=== PATIENT | female | born 1935 | race Caucasian/White ===

== ENCOUNTER 2016-07-22 08:58 | Outpatient (CLI) | payer MEDICARE, OTHER | END 2016-07-22 08:59 | disposition home or self-care (01) | DX: R10.11 Right upper quadrant pain (principal); R14.0 Abdominal distension (gaseous) ==

== ENCOUNTER 2017-01-06 10:00 | Outpatient (CLI) | payer MEDICARE, OTHER | END 2017-01-06 10:01 | disposition home or self-care (01) | LOC: LAB.WCP 10:00 | PROVIDERS: ATTEND Family Medicine | DX: N39.0 Urinary tract infection, site not specified (principal) | CPT/HCPCS: 87077; 87086 ==

== ENCOUNTER 2017-01-07 13:32 | Outpatient (CLI) | payer MEDICARE, OTHER ==
[2017-01-08 18:06] LABS: TEST RESULT REPORT (())
== END 2017-01-07 13:33 | disposition home or self-care (01) ==
LOC: LAB.WCP 13:32
PROVIDERS: ATTEND Family Medicine
DX: R19.7 Diarrhea, unspecified (principal)
CPT/HCPCS: 81599; 87045; 87046; 87177; 87209; 87329; 87493

== ENCOUNTER 2017-01-25 08:00 | Outpatient (CLI) | payer MEDICARE, OTHER | END 2017-01-25 08:01 | disposition home or self-care (01) | LOC: LAB.WCP 08:00 | PROVIDERS: ATTEND Family Medicine | DX: N39.0 Urinary tract infection, site not specified (principal) | CPT/HCPCS: 87086 ==

== ENCOUNTER 2017-04-28 08:39 | Emergency (ER) | payer MEDICARE, OTHER ==
--- NOTE | 2017-04-28 08:58 | ED Physician Documentation ---
PD HPI ABD PAIN - Stated complaint Stated Complaint: N/D ABD PX - History obtained from History obtained from: Patient - History of Present Illness Pain level max: 0 Review of Systems Constitutional: denies: Fever, Fatigue, Weight Loss Eyes: denies: Loss of vision Cardiac: denies: Chest pain / pressure, Palpitations, Pedal edema Respiratory: denies: Dyspnea, Cough, Wheezing GI: reports: Abdominal Swelling, Diarrhea. denies: Abdominal Pain, Nausea, Vomiting, Constipation, Bloody / black stool : reports: Incontinent. 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 - Present Medications Home Medications: Ambulatory Orders Medication Instructions Recorded Confirmed Gabapentin 600 mg QID 11/13/13 04/28/17 Levothyroxine [Synthroid] 75 mcg PO DAILY 11/13/13 04/28/17 Lovastatin 20 mg DAILY 11/13/13 04/28/17 Nabumetone 750 mg TID 11/13/13 04/28/17 Calcium Carbonate [Calcium] 500 mg PO DAILY 03/11/15 03/11/15 Loperamide [Imodium] 2 mg PO QID PRN 03/11/15 04/28/17 Multivitamin [Multi-Vitamin Daily] 1 each PO DAILY 03/11/15 04/28/17 Vit D3/Folic Acid/B2/B6/B12 1 tab PO DAILY 03/11/15 04/28/17 [Folgard Tablet] Acetaminophen [Tylenol] 650 mg PO 10/29/15 Famotidine [Pepcid AC] PO DAILY 10/29/15 Warfarin [Coumadin] 7.5 mg PO 1400 04/28/17 04/28/17 - Allergies Allergies/Adverse Reactions: Allergies Allergy/AdvReac Type Severity Reaction Status Date / Time clarithromycin [From Biaxin] Allergy Dizziness Verified 11/04/13 12:57 Sulfa (Sulfonamide Allergy Hives Verified 11/04/13 12:57 Antibiotics) - Social History Does the pt smoke?: No Smoking Status: Never smoker Does the pt drink ETOH?: Yes - Immunizations Immunizations are current?: Yes PD ED PE NORMAL - Vitals Vital signs reviewed: Yes - General General: Alert and oriented X 3 - HEENT HEENT: Atraumatic, Moist mucous membranes - Cardiac Cardiac: RRR, No murmur - Respiratory Respiratory: No respiratory distress, Clear bilaterally - Abdomen Abdomen: Normal bowel sounds, Soft, Non tender, Non distended - Rectal Rectal: Other (Hemeoccult neg 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) - Back Back: No CVA TTP - Derm Derm: Normal color, No rash - Extremities Extremities: No deformity, No edema - Neuro Neuro: Alert and oriented X 3 Eye Opening: Spontaneous Motor: Obeys Commands Verbal: Oriented GCS Score: 15 - Psych Psych: Normal mood Results - Vitals Vitals: Vital Signs - 24 hr 04/28/17 08:47 Temperature 36.4 C L Heart Rate 82 Respiratory 20 Rate Blood Pressure 182/96 H O2 Saturation 100 Oxygen O2 Source Room air - Labs Labs: Laboratory Tests 04/28/17 04/28/17 04/28/17 09:08 09:08 09:08 WBC 7.0 RBC 3.58 L Hgb 10.7 L Hct 30.9 L MCV 86.3 MCH 29.8 MCHC 34.6 RDW 14.4 Plt Count 265 MPV 8.6 Neut # 4.7 Lymph # 1.4 L [place] # 0.6 Eos # 0.2 Baso # 0.1 Absolute Nucleated RBC 0.00 Nucleated RBC % 0.0 PT 27.6 H INR 2.5 H APTT 36.3 H Sodium 131 L Potassium 4.6 Chloride 94 L Carbon Dioxide 24 Anion Gap 13.0 BUN 32 H Creatinine 1.5 H Estimated GFR (MDRD) 33 L Glucose 115 H Calcium 9.8 Total Bilirubin 1.1 H AST 35 ALT 27 Alkaline Phosphatase 62 Total Protein 7.2 Albumin 3.7 Globulin 3.5 Albumin/Globulin Ratio 1.1 Lipase 29 Urine Color Urine Clarity Urine pH Ur Specific [place] Urine Protein Urine Glucose (UA) Urine Ketones Urine Occult Blood Urine Nitrite Urine Bilirubin Urine Urobilinogen Ur Leukocyte Esterase Ur Microscopic Review Urine Culture Comments 04/28/17 09:08 WBC RBC Hgb Hct MCV MCH MCHC RDW Plt Count MPV Neut # Lymph # [place] # Eos # Baso # Absolute Nucleated RBC Nucleated RBC % PT INR APTT Sodium Potassium Chloride Carbon Dioxide Anion Gap BUN Creatinine Estimated GFR (MDRD) Glucose Calcium Total Bilirubin AST ALT Alkaline Phosphatase Total Protein Albumin Globulin Albumin/Globulin Ratio Lipase Urine Color YELLOW Urine Clarity CLEAR Urine pH 7.0 Ur Specific [place] 1.010 Urine Protein NEGATIVE Urine Glucose (UA) NEGATIVE Urine Ketones NEGATIVE Urine Occult Blood NEGATIVE Urine Nitrite NEGATIVE Urine Bilirubin NEGATIVE Urine Urobilinogen 0.2 (NORMAL) Ur Leukocyte Esterase NEGATIVE Ur Microscopic Review NOT INDICATED Urine Culture Comments NOT INDICATED PD MEDICAL DECISION MAKING - ED course Complexity details: reviewed old records, d/w patient, d/w tax credit leasing consultant ED course: Pt H/H 04/11. elevated INR but she is on coumadin. BUN and Creat stable from yesterday. Heme occult neg. Discussed case with Dr Carlson (her GI provider) and will hold on PPI for now. Pt given return instructions. Departure - Departure Disposition: 01 Home, Self Care Clinical Impression: Elevated serum creatinine Condition: Good Follow-Up: Dolly Cruz MD [Primary Care Provider] - Within 1 week Comments: Call Dr Carlson also to discuss your lab results.
[2017-04-28 09:31] LABS: BASOPHILS # (AUTO) 0.1 10^3/uL (0.0-0.1); EOSINOPHILS # (AUTO) 0.2 10^3/uL (0.0-0.7); HCT - HEMATOCRIT 30.9 % (37.0-47.0); HGB - HEMOGLOBIN 10.7 g/dL (12.0-16.0); LYMPHOCYTES # (AUTO) 1.4 10^3/uL (1.5-3.5); LYMPHOCYTES % (AUTO) 20.4 %; MEAN CORPUSCULAR HEMOGLOBIN 29.8 pg (27.0-31.0); MEAN CORPUSCULAR HGB CONC 34.6 g/dL (32.0-36.0); MEAN CORPUSCULAR VOLUME 86.3 fL (81.0-99.0); MEAN PLATELET VOLUME 8.6 fL (7.9-10.8); MONOCYTES # (AUTO) 0.6 10^3/uL (0.0-1.0); MONOCYTES % (AUTO) 8.4 %; NEUTROPHILS # (AUTO) 4.7 10^3/uL (1.5-6.6); NEUTROPHILS % (AUTO) 67.2 %; RED BLOOD COUNT 3.58 10^6/uL (4.20-5.40); RED CELL DISTRIBUTION WIDTH 14.4 % (12.0-15.0)
[2017-04-28 09:34] LABS: INR 2.5 (0.8-1.2); PT - PROTHROMBIN TIME 27.6 secs (9.9-12.6)
[2017-04-28 09:42] LABS: PARTIAL THROMBOPLASTIN TIME 36.3 secs (24.9-33.3)
[2017-04-28 09:43] LABS: ALBUMIN/GLOBULIN RATIO 1.1 (1.0-2.2); BILIRUBIN,TOTAL 1.1 mg/dL (0.2-1.0); CALCIUM 9.8 mg/dL (8.5-10.3); CREATININE 1.5 mg/dL (0.4-1.0); POTASSIUM 4.6 mmol/L (3.5-5.0); TOTAL PROTEIN 7.2 g/dL (6.7-8.2)
[2017-04-28 09:46] LABS: BILIRUBIN,URINE NEGATIVE (NEGATIVE)
[2017-04-28 09:47] LABS: UA CHARGE (STRIP ONLY) YES; UR CULTURE IF IND NOT INDICATED
[2017-04-28 10:27] VITALS: BP 173/86
== END 2017-04-28 10:27 | disposition home or self-care (01) ==
LOC: ED 08:39
DX: R74.8 Abnormal levels of other serum enzymes (principal); Z79.01 Long term (current) use of anticoagulants; E03.9 Hypothyroidism, unspecified
CPT/HCPCS: 36415; 80053; 81001; 81003; 83690; 85025; 85610; 85730; 87086; 99283

== ENCOUNTER 2017-05-03 16:00 | Outpatient (CLI) | payer MEDICARE, OTHER ==
[2017-05-03 19:13] LABS: CALCIUM 9.3 mg/dL (8.5-10.3); CREATININE 1.4 mg/dL (0.4-1.0); POTASSIUM 4.5 mmol/L (3.5-5.0)
== END 2017-05-03 16:01 | disposition home or self-care (01) ==
LOC: LAB.WCP 16:00
PROVIDERS: ATTEND Family Medicine
DX: N28.9 Disorder of kidney and ureter, unspecified (principal)
CPT/HCPCS: 36415; 80048

== ENCOUNTER 2017-06-08 08:20 | Outpatient (CLI) | payer MEDICARE, OTHER ==
--- NOTE | 2017-06-09 16:14 | Ultrasound Report ---
DATE OF SERVICE: 06/08/2017 RENAL ULTRASOUND: 06/08/2017 CLINICAL INDICATION: Kidney disorder. TECHNIQUE: Real-time scanning was performed with industrial relations representative static images obtained. FINDINGS: The right kidney measures 9.5 x 3.5 x 3.2 cm, and the left kidney measures 9.1 x 4.4 x 3.7 cm. A small left extrarenal pelvis is present. No hydronephrosis, solid renal lesion, or perinephric colle ction is appreciated. Prevoid, the bladder measures 8.4 x 8.0 x 6.6 cm, yielding a pre-void volume of 236 mL Bilateral uret eral jets are visualized. Postvoid residual is 7 mL No focal bladder wall lesion is appreciated. IMPRESSION: No hydronephrosis or focal renal lesion. TD: 06/08/2017 11:22
== END 2017-06-08 08:21 | disposition home or self-care (01) ==
LOC: DI 08:20
PROVIDERS: ATTEND Family Medicine
DX: N28.9 Disorder of kidney and ureter, unspecified (principal)
CPT/HCPCS: 76770

== ENCOUNTER 2017-07-23 07:06 | Outpatient (CLI) | payer MEDICARE, OTHER | END 2017-07-23 07:07 | disposition critical access hospital (66) | LOC: EMS 07:06 | PROVIDERS: ATTEND Surgery | DX: M79.605 Pain in left leg (principal); R42 Dizziness and giddiness; Z79.01 Long term (current) use of anticoagulants | CPT/HCPCS: A0425; A0429 ==

== ENCOUNTER 2017-07-23 07:20 | Emergency (ER) | payer MEDICARE, OTHER ==
--- NOTE | 2017-07-23 07:20 | ED Physician Documentation ---
PD HPI LOWER EXT INJURY - Stated complaint Stated Complaint: L HIP PX - History obtained from History obtained from: Patient - History of Present Illness PD HPI LOW EXT INJURY LOCATION: Left, Upper leg, Thigh Type of injury: No: Fall, Twist Where injury occurred: Home Timing - onset: How many days ago (3 days of progressive pain left anterior thigh, without injury. Worse with movement and walking. Unable to walk this morning due to the pain of it.) Timing - duration: Days (3) Timing - details: Gradual onset, Still present Improved by: No: Rest, Meds (tylenol did not help) Worsened by: Moving, Palpating Associated symptoms: Tingling (both hands chronically post neck surgery). No: Weakness, Numbness Contributing factors: Anticoagulated Similar symptoms before: Has not had sx before Recently seen: Clinic (has hade right abd pain/lump being evaluated with imaging (U/S and ? MRI) and also had EGD/Colonoscopy 2 weeks ago, for which she was off coumadin and on Lovenox prior to it.) Review of Systems Constitutional: reports: Myalgias (left thigh pain for 3 days). denies: Fever, Chills Nose: denies: Rhinorrhea / runny nose, Congestion Throat: denies: Sore throat Cardiac: denies: Chest pain / pressure, Palpitations Respiratory: denies: Dyspnea, Cough GI: denies: Nausea, Vomiting, Diarrhea : denies: Dysuria, Frequency Skin: denies: Rash, Lesions Musculoskeletal: reports: Neck pain (chronic), Back pain (minimal chronically) Neurologic: reports: Numbness (both hands chronically, no new numbness particularly of the leg). denies: Focal weakness Psychiatric: denies: Depressed Endocrine: denies: Weight loss Immunocompromised: denies: Immunocompromised PD PAST MEDICAL HISTORY - Past Medical History Cardiovascular: Deep vein thrombosis (many years ago on OCPs), Pulmonary embolism (2016 after back surgery, at [facility]) Respiratory: None Neuro: None Endocrine/Autoimmune: None Musculoskeletal: Osteoarthritis - Past Surgical History General: Colonoscopy (2 weeks ago), EGD (2 weeks ago) - Present Medications Home Medications: Ambulatory Orders Medication Instructions Recorded Confirmed Gabapentin 600 mg QID 11/13/13 04/28/17 Levothyroxine [Synthroid] 50 mcg PO DAILY 11/13/13 04/28/17 Lovastatin 20 mg DAILY 11/13/13 04/28/17 Nabumetone 750 mg BID 11/13/13 04/28/17 Calcium Carbonate [Calcium] 500 mg PO DAILY 03/11/15 03/11/15 Loperamide [Imodium] 2 mg PO QID PRN 03/11/15 04/28/17 Multivitamin [Multi-Vitamin Daily] 1 each PO DAILY 03/11/15 04/28/17 Vit D3/Folic Acid/B2/B6/B12 1 tab PO DAILY 03/11/15 04/28/17 [Folgard Tablet] Acetaminophen [Tylenol] 650 mg PO 10/29/15 Warfarin [Coumadin] 7.5 mg PO 1400 04/28/17 04/28/17 Dexamethasone [Decadron] 4 mg PO DAILY #5 tablet 07/23/17 Losartan Potassium 0 07/23/17 Oxycodone HCl/Acetaminophen 1 each PO Q6H PRN #20 tablet 07/23/17 [Percocet 5-325 mg Tablet] - Allergies Allergies/Adverse Reactions: Allergies Allergy/AdvReac Type Severity Reaction Status Date / Time clarithromycin [From Biaxin] Allergy Dizziness Verified 11/04/13 12:57 Sulfa (Sulfonamide Allergy Hives Verified 11/04/13 12:57 Antibiotics) - Living Situation Living Situation: reports: With family Living Arrangement: reports: At home - Social History Does the pt smoke?: No - Family History Family history: reports: Non contributory PD ED PE NORMAL - Vitals Vital signs reviewed: Yes - General General: Alert and oriented X 3, Well developed/nourished - HEENT HEENT: Pharynx benign - Neck Neck: Supple, no meningeal sign, No adenopathy - Cardiac Cardiac: RRR, No murmur - Respiratory Respiratory: No respiratory distress, Clear bilaterally - Abdomen Abdomen: Normal bowel sounds, Soft, Non tender, Non distended - Female Female : Deferred - Rectal Rectal: Deferred - Back Back: No CVA TTP, No spinal TTP (old scars noted without redness, sores, rash. Not tender in the back. ) - Derm Derm: Normal color, Warm and dry - Extremities Extremities: Other (left anterior thigh with tenderness to palpation from crural area to knee. No rash nor sores. Right thigh not tender. Calves both sides without tenderness. ) - Neuro Neuro: Alert and oriented X 3, No motor deficit, Normal speech Results - Vitals Vitals: Vital Signs - 24 hr 07/23/17 07/23/17 07:25 10:05 Temperature 35.8 C L Heart Rate 99 66 Respiratory 18 17 Rate Blood Pressure 165/76 H 142/73 H O2 Saturation 96 96 Oxygen O2 Source Room air - Labs Labs: Laboratory Tests 07/23/17 07/23/17 07/23/17 07:46 07:46 07:46 WBC 11.8 H RBC 3.56 L Hgb 10.3 L Hct 30.2 L MCV 85.0 MCH 28.9 MCHC 34.0 RDW 14.3 Plt Count 321 MPV 8.1 Neut # 10.3 H Lymph # 0.9 L [place] # 0.6 Eos # 0.1 Baso # 0.0 Absolute Nucleated RBC 0.01 Nucleated RBC % 0.1 ESR 32 H PT INR Sodium 131 L Potassium 4.6 Chloride 94 L Carbon Dioxide 24 Anion Gap 13.0 BUN 31 H Creatinine 1.2 H Estimated GFR (MDRD) 43 L Glucose 121 H Calcium 9.5 Magnesium 2.0 Total Bilirubin 0.7 AST 23 ALT 20 Alkaline Phosphatase 75 Total Creatine Kinase 120 Total Protein 7.0 Albumin 3.8 Globulin 3.2 Albumin/Globulin Ratio 1.2 Lipase 17 L 07/23/17 07:46 WBC RBC Hgb Hct MCV MCH MCHC RDW Plt Count MPV Neut # Lymph # [place] # Eos # Baso # Absolute Nucleated RBC Nucleated RBC % ESR PT 25.3 H INR 2.3 H Sodium Potassium Chloride Carbon Dioxide Anion Gap BUN Creatinine Estimated GFR (MDRD) Glucose Calcium Magnesium Total Bilirubin AST ALT Alkaline Phosphatase Total Creatine Kinase Total Protein Albumin Globulin Albumin/Globulin Ratio Lipase - Rads (name of study) duplex left leg Radiology: Prelim report reviewed (no DVT) hip xray Radiology: Prelim report reviewed (no fractures; some arthritis noted) PD MEDICAL DECISION MAKING - ED course Complexity details: considered differential (consider DVT of thigh and can get U /S. Consider nerve pain but not having pain in back and is tender in muscles of thigh. No rash but could be early shingles. She is on statin, so consider myositis. Check labs and xray hip as well. ), d/w patient Departure - Departure Disposition: 01 Home, Self Care Clinical Impression: Left thigh pain Condition: Stable Record reviewed to determine appropriate education?: Yes Instructions: ED Muscle Pain Leg Cramps Follow-Up: Dolly Cruz MD [Primary Care Provider] - Prescriptions: Dexamethasone [Decadron] 4 mg PO DAILY #5 tablet Oxycodone HCl/Acetaminophen [Percocet 5-325 mg Tablet] 1 each PO Q6H PRN #20 tablet PRN Reason: Pain Comments: Your blood tests show some elevation of inflammation marker called the sed rate. There is no signs of muscle breakdown based on the blood test. Your hip x-ray appears normal except for some arthritis. Given the tenderness in the muscle, I am wondering if this is an inflammation caused by your cholesterol medication. Stop the statin medication from the next month. Use Decadron anti- inflammatory daily for the next 5 days. Add Tylenol every 4 hours if needed for pain. If this is not sufficient, use Percocet instead. Follow-up with your primary care in the next 4-5 days. If you develop a rash in the area, then contact your primary care or us as we may need to add an antiviral if it evolves into shingles type picture. Discharge Date/Time: 07/23/17 10:49
[2017-07-23] MEDS ORDERED: HYDROmorphone 1 MG/ML SYRINGE IVP STA (07:39)
[2017-07-23] MEDS ORDERED: ONDANSETRON ODT 4 MG TABLET TL STA (07:46)
[2017-07-23] MEDS ORDERED: oxyCOD/ACETAMIN 5 MG/325 MG TABLET PO STA (07:46)
[2017-07-23 07:55] LABS: BASOPHILS % (AUTO) 0.4 %; EOSINOPHILS # (AUTO) 0.1 10^3/uL (0.0-0.7); EOSINOPHILS % (AUTO) 0.5 %; HGB - HEMOGLOBIN 10.3 g/dL (12.0-16.0); LYMPHOCYTES # (AUTO) 0.9 10^3/uL (1.5-3.5); LYMPHOCYTES % (AUTO) 7.3 %; MEAN CORPUSCULAR HEMOGLOBIN 28.9 pg (27.0-31.0); MEAN PLATELET VOLUME 8.1 fL (7.9-10.8); MONOCYTES # (AUTO) 0.6 10^3/uL (0.0-1.0); MONOCYTES % (AUTO) 4.7 %; NEUTROPHILS # (AUTO) 10.3 10^3/uL (1.5-6.6); NEUTROPHILS % (AUTO) 87.1 %; PLT - PLATELET COUNT 321 10^3/uL (130-450); RED BLOOD COUNT 3.56 10^6/uL (4.20-5.40); RED CELL DISTRIBUTION WIDTH 14.3 % (12.0-15.0); WHITE BLOOD COUNT 11.8 x10^3/uL (4.8-10.8)
[2017-07-23 08:08] LABS: INR 2.3 (0.8-1.2); PT - PROTHROMBIN TIME 25.3 secs (9.9-12.6)
[2017-07-23 08:14] LABS: ALBUMIN 3.8 g/dL (3.2-5.5); ALBUMIN/GLOBULIN RATIO 1.2 (1.0-2.2); BILIRUBIN,TOTAL 0.7 mg/dL (0.2-1.0); CALCIUM 9.5 mg/dL (8.5-10.3); CREATININE 1.2 mg/dL (0.4-1.0)
--- NOTE | 2017-07-23 08:44 | XRAY Report ---
EXAM: LEFT HIP AND PELVIS RADIOGRAPHY EXAM DATE: 07/23/2017 08:17 AM. HISTORY: Left hip/thigh pain for 3 days. COMPARISONS: Correlation with AP pelvis and right hip film [id number]. TECHNIQUE: 1 view of the pelvis and 1 view of the hip. FINDINGS: Bones: No fracture evident. Prior fusion of the visualized lumbar spine extending into sacrum and mary ateral iliac bones. Prior lumbar laminectomy. Joints: Bilateral mild to moderate hip joint space narrowing. No dislocation. Soft Tissues: Normal. No soft tissue swelling. IMPRESSION: 1. Degenerative changes with bilateral hip joint space narrowing. 2. No fracture or dislocation. 3. Prior spinal-iliac fusion. [facility] Referring Provider Line: [phone] SITE ID: [id number]
--- NOTE | 2017-07-23 09:12 | Ultrasound Report ---
EXAM: LEFT LOWER EXTREMITY VENOUS ULTRASOUND EXAM DATE: 07/23/2017 08:27 AM. CLINICAL HISTORY: Left thigh pain/tender for 3 days. COMPARISON: None. TECHNIQUE: Real-time sonographic vascular imaging was performed by the boiler tester through the lower extremity utilizing both color-flow and Doppler spectral analysis. Multiple sales representative girls' apparel static shreyas ges were saved for review. Buyer Broker notes patient could not tolerate compression of left groin region. Unable to compress lef t profunda femoral and common femoral veins due to pain. FINDINGS: Common Femoral Vein (CFV): Normal. CFV-GSV Junction: Normal. Profunda Femoral Vein (PFV): Normal. Femoral Vein (FV) Prox: Normal. Femoral Vein (FV) Mid: Normal. Femoral Vein (FV) Dist: Normal. Popliteal Vein: Normal. Posterior Tibial Veins: Normal. Peroneal Veins: Normal. Contralateral Side CFV: Normal. Other: None. IMPRESSION: 1. No evidence for deep venous thrombosis. 2. Patient was unable to tolerate compression within left inguinal region due to pain. No DVT evident . Normal Doppler flow documented. Recommend clinical correlation. [facility] Referring Provider Line: [phone] SITE ID: [id number]
[2017-07-23] MEDS ORDERED: KETOROLAC 60 MG/2 ML VIAL IM STA (09:30)
[2017-07-23] MEDS ORDERED: DEXAMETHASONE 10 MG/ML VIAL PO STA (09:30)
[2017-07-23 10:07] VITALS: BP 142/73
== END 2017-07-23 10:49 | disposition home or self-care (01) ==
LOC: EDUNIT# → ED 07:20
DX: M79.652 Pain in left thigh (principal); M79.1 Myalgia; M54.2 Cervicalgia; Z86.711 Personal history of pulmonary embolism; Z86.718 Personal history of other venous thrombosis and embolism; Z79.01 Long term (current) use of anticoagulants; M19.90 Unspecified osteoarthritis, unspecified site
CPT/HCPCS: 36415; 73502; 80053; 82550; 83690; 83735; 85025; 85610; 85651; 93971; 96372; 99283; 99284; A9270; Q0162

== ENCOUNTER 2017-08-04 10:04 | Outpatient (CLI) | payer MEDICARE, OTHER | END 2017-08-04 10:05 | disposition critical access hospital (66) | LOC: EMS 10:04 | PROVIDERS: ATTEND Surgery | DX: M79.605 Pain in left leg (principal) | CPT/HCPCS: A0425; A0429 ==

== ENCOUNTER 2017-08-04 10:21 | Inpatient (IN) | payer MEDICARE, OTHER ==
[2017-08-04] MEDS ORDERED: oxyCOD/ACETAMIN 5 MG/325 MG TABLET PO STA (11:11)
--- NOTE | 2017-08-04 11:56 | XRAY Report ---
EXAM: LEFT FEMUR RADIOGRAPHY EXAM DATE: 08/04/2017 11:43 AM. CLINICAL HISTORY: Severe pain, cannot bear weight. COMPARISON: 07/23/2017 TECHNIQUE: 2 views. FINDINGS: Bones: Postsurgical changes in the pelvis from prior fusion surgery. No fracture or bone lesion. Joints: The imaged hip and knee joints are anatomically aligned. Soft Tissues: No soft tissue swelling. IMPRESSION: Negative left femur radiography for acute findings. [facility] Referring Provider Line: [phone] SITE ID: [id number]
[2017-08-04 13:40] LABS: BASOPHILS # (AUTO) 0.1 10^3/uL (0.0-0.1); BASOPHILS % (AUTO) 0.5 %; EOSINOPHILS # (AUTO) 0.2 10^3/uL (0.0-0.7); EOSINOPHILS % (AUTO) 1.6 %; HGB - HEMOGLOBIN 8.7 g/dL (12.0-16.0); LYMPHOCYTES # (AUTO) 1.4 10^3/uL (1.5-3.5); LYMPHOCYTES % (AUTO) 11.2 %; MEAN CORPUSCULAR HEMOGLOBIN 28.9 pg (27.0-31.0); MEAN CORPUSCULAR HGB CONC 33.2 g/dL (32.0-36.0); MEAN CORPUSCULAR VOLUME 86.9 fL (81.0-99.0); MEAN PLATELET VOLUME 7.8 fL (7.9-10.8); MONOCYTES # (AUTO) 0.9 10^3/uL (0.0-1.0); MONOCYTES % (AUTO) 7.5 %; NEUTROPHILS # (AUTO) 9.6 10^3/uL (1.5-6.6); NEUTROPHILS % (AUTO) 79.2 %; PLT - PLATELET COUNT 291 10^3/uL (130-450); RED BLOOD COUNT 3.01 10^6/uL (4.20-5.40); RED CELL DISTRIBUTION WIDTH 15.6 % (12.0-15.0); WHITE BLOOD COUNT 12.2 x10^3/uL (4.8-10.8)
[2017-08-04 13:57] LABS: CALCIUM 8.9 mg/dL (8.5-10.3)
--- NOTE | 2017-08-04 15:25 | CT Preliminary Report ---
Exam: CT LOWER EXTREMITY LEFT W/O IMPRESSION: 1. No fractures or erosive changes. 2. Iliopsoas muscle is abnormally swollen, and is muscle density, compatible with intra-muscular ky zarina. 3. Similar abnormal muscle density is seen in the abductor gregorio and adductor brevis musculature. 4. Intramuscular septal fluid also seen in the adductor compartment. [facility] SITE ID: [id number]
[2017-08-04] MEDS ORDERED: oxyCODONE 5 MG TABLET PO STA (15:36)
[2017-08-04] MEDS ORDERED: LIDOCAINE PATCH 5% TOP STA (15:36)
--- NOTE | 2017-08-04 15:53 | CT Report ---
EXAM: LEFT FEMUR CT WITHOUT CONTRAST EXAM DATE: 08/04/2017 02:30 PM. CLINICAL HISTORY: Severe left hip, femur, and knee pain with hematoma. COMPARISON: None. TECHNIQUE: Thin-section axial images were acquired of the knee without contrast. Post-processing: Cor onal and sagittal reformats. Other: None. In accordance with CT protocol optimization, one or more of the following dose reduction techniques w ere utilized for this exam: automated exposure control, adjustment of mA and/or KV based on patient s ize, or use of iterative reconstructive technique. FINDINGS: Bones: No fracture or bone lesion. Joints: The joint spaces are preserved. No calcified loose bodies. No large effusion. Musculature: Left iliacus, psoas musculature is abnormally swollen and is muscle density. There is also abnormal muscle density swelling involving the adductor gregorio and adductor brevis. Anthony e intermuscular septal fluid also seen in the adductor compartment. Other: No Bakers cyst. No soft tissue swelling. IMPRESSION: 1. No fractures or erosive changes. 2. Iliopsoas muscle is abnormally swollen and is muscle density, compatible with intra-muscular hemat lópez. 2. Similar abnormal muscle density is seen in the adductor gregorio and adductor brevis musculature. 4. Intramuscular septal fluid also seen in the adductor compartment. [facility] Referring Provider Line: [phone] SITE ID: [id number]
--- NOTE | 2017-08-04 16:15 | ED Physician Documentation ---
History of Present Illness - Stated complaint Stated Complaint: RT LEG PX - Chief complaint Chief Complaint: Heent - Additonal information Additional information: hx from pt 82 female on coumadin 2/2 prior PE DVT seen 07/23 for L thigh pain sono neg for DVT, xray no fx, felt possibly nerve or arthritis pain, dc on steroids and oxycodone states last night she was leaning forward to brush teeth and felt something shift in her leg and they pain became worse and she cannot walk at all also has bruising to her thigh which started after last ER visit but > 1 wk ago - pt states is not new but worse no fall no fever no CP or SOA Review of Systems Constitutional: denies: Fever, Chills Cardiac: denies: Chest pain / pressure Respiratory: denies: Dyspnea GI: denies: Abdominal Pain Musculoskeletal: reports: Extremity pain Neurologic: denies: Focal weakness, Numbness Endocrine: reports: Easy bruising / bleeding (coumadin) PD PAST MEDICAL HISTORY - Past Medical History Cardiovascular: Deep vein thrombosis, Pulmonary embolism Respiratory: None Neuro: None Endocrine/Autoimmune: None GI: Other Psych: None Musculoskeletal: Osteoarthritis - Past Surgical History Past Surgical History: Yes General: Colonoscopy, EGD 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 - Present Medications Home Medications: Ambulatory Orders Medication Instructions Recorded Confirmed Gabapentin 600 mg PO 0800,1200,1700,2100 11/13/13 08/04/17 Levothyroxine [Synthroid] 50 mcg PO QDAC 11/13/13 08/04/17 Lovastatin 20 mg PO QPM 11/13/13 08/04/17 Nabumetone 750 mg PO 1700 11/13/13 08/04/17 Warfarin [Coumadin] 7.5 mg PO QPM 04/28/17 08/04/17 Losartan Potassium 50 mg PO DAILY 08/04/17 08/04/17 Methocarbamol 500 mg PO 1200,2100 08/04/17 08/04/17 Multivitamin [Theragran] 1 tab PO DAILY 08/04/17 08/04/17 Multivitamin [Theragran] 1 tab PO DAILY 08/04/17 08/04/17 - Allergies Allergies/Adverse Reactions: Allergies Allergy/AdvReac Type Severity Reaction Status Date / Time Sulfa (Sulfonamide Allergy Intermediate Hives Verified 08/04/17 10:29 Antibiotics) clarithromycin [From Biaxin] Allergy Dizziness Verified 08/04/17 10:29 - Social History Does the pt smoke?: No Smoking Status: Never smoker Does the pt drink ETOH?: Yes - Immunizations Immunizations are current?: Yes PD ED PE NORMAL - Vitals Vital signs reviewed: Yes - Neck Neck: Supple, no meningeal sign - Cardiac Cardiac: RRR - Respiratory Respiratory: No respiratory distress, Clear bilaterally - Abdomen Abdomen: Soft, Non tender, Other (no pulsatile mass, no abd bruising) - Derm Derm: Other (aged brusing to L thigh mostly ant and medial) - Extremities Extremities: Other (bruising and sift tisse TTP to thingh but able to range hip and knee though with pain, MSV intact) Results - Vitals Vitals: Vital Signs - 24 hr 08/04/17 08/04/17 08/04/17 10:23 11:30 12:30 Temperature 36.5 C Heart Rate 85 77 76 Respiratory 12 16 16 Rate Blood Pressure 195/85 H 152/71 H 140/65 H O2 Saturation 100 96 95 08/04/17 08/04/17 13:00 15:08 Temperature Heart Rate 74 73 Respiratory 16 16 Rate Blood Pressure 157/72 H 156/80 H O2 Saturation 94 97 Oxygen O2 Source Room air - Labs Labs: Laboratory Tests 08/04/17 08/04/17 08/04/17 10:46 13:35 13:35 WBC 12.2 H RBC 3.01 L Hgb 8.7 L Hct 26.1 L MCV 86.9 MCH 28.9 MCHC 33.2 RDW 15.6 H Plt Count 291 MPV 7.8 L Neut # 9.6 H Lymph # 1.4 L [place] # 0.9 Eos # 0.2 Baso # 0.1 Absolute Nucleated RBC 0.00 Nucleated RBC % 0.0 Whole Blood INR 3.4 H Sodium 137 Potassium 4.8 Chloride 107 Carbon Dioxide 23 Anion Gap 7.0 BUN 32 H Creatinine 1.0 Estimated GFR (MDRD) 53 L Glucose 102 H Calcium 8.9 - Rads (name of study) femur xray Radiology: See rad report (neg) CT femur Radiology: See rad report (illeopsoad and adductur gregorio and brevis hematoma, no fx) PD MEDICAL DECISION MAKING - ED course ED course: iliopsoas mm hematoma with severe pain despite narcotics and sig decreased H/H will consult ortho ortho Dr Mathias reviewed CT scans and examined pt and advises unlikely to get cmpt syndrome in these mm groups and recommends tx will be to reverse coumadin watch serial H/H pain management etc pt has not had coumadin today and gave Vit K 10 SQ so spoke to hospitalist Dr Ramsay at 430 PM and she will admit pt and family updated Departure - Departure Disposition: ED Place in Observation Clinical Impression: Hematoma, Acute blood loss anemia Condition: Fair Discharge Date/Time: 08/04/17 17:49
[2017-08-04] MEDS ORDERED: PHYTONADIONE 10 MG/ML AMP SUBQ STA (16:28)
[2017-08-04] MEDS ORDERED: SODIUM CHLORIDE FLUSH 0.9% 10 ML SYRINGE IVP PRN (16:52)
--- NOTE | 2017-08-04 17:51 | HISTORY & PHYSICAL EXAMINATION ---
Chief Complaint - Chief Complaint Chief Complaint: left leg pain, bruising, inability to walk History of Present Illness - Admitted From Admitted From:: ED - History Obtained From Records Reviewed: yes History obtained from: chart review, patient Exam Limitations: none - History of Present Illness HPI Comment/Other: Gladis Dillard is a small stature 82-year old white female with a past medical history of DVT, PE, irregular heart rate, osteoarthritis, hypothyroidism, hyperlipidemia, and hypertension. She woke up this morning and could not get out of bed, so she called her neighbor who helped her clean up and an ambulance was called. She admits to feeling a sudden sharp pain in her left hip while she was leaning over her sink and brushing her teeth. She had immediate pain, so went to bed. Once she was in the ED, imaging noted a illeopsoad and adductur gregorio and brevis hematoma. Orthopedic surgery was contacted, Dr. Bolden who recommends reversing her INR, watching H/H, and it is not felt that compartment syndrome is likely given the muscle groups involved. History - Past Medical History Cardiovascular: reports: Hypertension, High cholesterol, Deep vein thrombosis, Pulmonary embolism Respiratory: reports: None Neuro: reports: None Endocrine/Autoimmune: reports: HyPOthyroidism. denies: Type 1 diabetes, Type 2 diabetes, HyPERthyroidism GI: reports: None, Other. denies: Hiatal hernia, Colon polyps, C.difficile, Chronic diarrhea, Chronic constipation, Hemorrhoids FLEET COORDINATOR: reports: None. denies: Endometriosis, Ectopic , Ovarian cysts : reports: Incontinence (dribbling), Nocturia HEENT: reports: Chronic vision loss Psych: reports: None. denies: Depression, Anxiety, Bipolar disorder, Schizophrenia Musculoskeletal: reports: Osteoarthritis, Chronic back pain. denies: Fibromyalgia Derm: reports: None. denies: Herpes zoster MRSA Hx?: No - Past Surgical History General: reports: Colonoscopy, EGD Ortho: reports: Spine surgery /FLEET COORDINATOR: reports: Hysterectomy, Oophrectomy Other past surgical history: back surgery d/t 2 vertebrae that collapsed due to osteoporosis - Family & Social History Family History: Mother: , Father: Family History Comment/Other: Mother with no known diseases, father with heart disease. 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 [place] She has 2 grown daughters, both are relatively close by. She was 2 times, the last time about 20 years ago. She request to be a DNR. - Substance History Use: Uses substance without health or social issues: NONE Abuse: Recurrent use of substance despite neg consequences: NONE Dependence: Experiences withdrawal or developed tolerances: NONE - POLST Patient has POLST: No POLST Status: DNR Meds/Allgy - Home Medications Home Medications: Ambulatory Orders Medication Instructions Recorded Confirmed Gabapentin 600 mg PO 0800,1200,1700,2100 11/13/13 08/04/17 Levothyroxine [Synthroid] 50 mcg PO QDAC 11/13/13 08/04/17 Lovastatin 20 mg PO QPM 11/13/13 08/04/17 Nabumetone 750 mg PO 1700 11/13/13 08/04/17 Warfarin [Coumadin] 7.5 mg PO QPM 04/28/17 08/04/17 Losartan Potassium 50 mg PO DAILY 08/04/17 08/04/17 Methocarbamol 500 mg PO 1200,2100 08/04/17 08/04/17 Multivitamin [Theragran] 1 tab PO DAILY 08/04/17 08/04/17 Multivitamin [Theragran] 1 tab PO DAILY 08/04/17 08/04/17 - Allergies Allergies/Adverse Reactions: Allergies Allergy/AdvReac Type Severity Reaction Status Date / Time Sulfa (Sulfonamide Allergy Intermediate Hives Verified 08/04/17 10:29 Antibiotics) clarithromycin [From Biaxin] Allergy Dizziness Verified 08/04/17 10:29 Review of Systems - Constitutional Constitutional: reports: Weakness. denies: Fatigue, Fever, Chills - Eyes Eyes: reports: Corrective lenses. denies: Pain, Irritation, Amaurosis - Ears, Nose & Throat Ears, Nose & Throat: reports: Hearing loss. denies: Tinnitus, Vertigo, Nasal pain, Nasal discharge - Cardiovascular Cariovascular: reports: Irregular heart rate, Decr. exercise tolerance. denies : Chest pain, Edema - Respiratory Respiratory: denies: Cough, Sputum production, Wheezing - Gastrointestinal Gastrointestinal: reports: Diarrhea (chronic), Reflux/heartburn. denies: Abdominal pain, Abdominal distention - Genitourinary Genitourinary: reports: Urgency, Incontinence. denies: Dysuria, Frequency - Musculoskeletal Musculoskeletal: denies: Muscle pain, Back pain, Muscle aches - Integumentary Integumentary: reports: Dryness. denies: Rash, Pruritis - Neurological Neurological: reports: Pre-existing deficit. denies: General weakness, Focal weakness, Headache - Psychiatric Psychiatric: denies: Depression, Anxiety, Suicidal - Endocrine Endocrine: denies: Polyuria, Polydypsia - Hematologic/Lymphatic Hematologic/Lymphatic: reports: Anemia, Bruising, Blood clots, Bleeding tendencies - All Other Systems All Other Systems: reports: Reviewed and negative Exam - Vital Signs Reviewed Vital Signs: Yes - Physical Exam General Appearance: positive: Alert, Moderate distress Eyes Bilateral: positive: Normal inspection ENT: positive: ENT inspection nml, Pharynx nml, Dry mucous membranes Neck: positive: Nml inspection, Thyroid nml, No JVD Respiratory: positive: Chest non-tender, No respiratory distress, Other ( diminished, crackles through out) Cardiovascular: positive: Regular rate & rhythm, No gallop, Systolic murmur, Decreased pulse(s) Peripheral Pulses: positive: 1+ Abdomen: positive: Non-tender, No organomegaly, Nml bowel sounds, Mass (right abdominal wall, has had work up done by GI in [place].), Other Back: positive: Nml inspection Skin: positive: No rash, Warm, Dry, Pallor Extremities: positive: Pedal edema, Joint swelling, Other (bruising to left thigh) Conclusion/Plan - Problem List (1) Contusion of unspecified thigh, initial encounter Conclusion/Plan: Patient was in the ED a few days prior to admission with complaints of left thigh pain that has now progressed. Imaging shows an Iliopsoas muscle abnormality compatible with intra-muscular hematoma. Plan: Will Re-image in 24 hours to ensure no further bleeding. Dr. Bolden is following. (2) Pain Conclusion/Plan: Patient does not generally require pain medications at home, but the pain in her left thigh has impaired her mobility. Plan: Use pain medications and plan for re-imaging. Dr. Bolden will be updated. (3) Supratherapeutic INR Conclusion/Plan: On admission the patient's INR was elevated at 3.4, so SQ vitamin K was administered. Plan: Monitor INR daily and give reversal. Coumadin will remain on hold. - Lab Results Lab results reviewed: Yes Fish Bones: 08/05/17 05:41 08/05/17 05:41 - Diagnostic Imaging Results Diagnostic Imaging Results: positive: Final report reviewed Diagnostic Imaging Results Comments: EXAM: LEFT FEMUR CT WITHOUT CONTRAST EXAM DATE: 08/04/2017 02:30 PM. CLINICAL HISTORY: Severe left hip, femur, and knee pain with hematoma. COMPARISON: None. TECHNIQUE: Thin-section axial images were acquired of the knee without contrast. Post-processing: Coronal and sagittal reformats. Other: None. In accordance with CT protocol optimization, one or more of the following dose reduction techniques were utilized for this exam: automated exposure control, adjustment of mA and/or KV based on patient size, or use of iterative reconstructive technique. FINDINGS: Bones: No fracture or bone lesion. Joints: The joint spaces are preserved. No calcified loose bodies. No large effusion. Musculature: Left iliacus, psoas musculature is abnormally swollen and is muscle density. There is also abnormal muscle density swelling involving the adductor gregorio and adductor brevis. Some intermuscular septal fluid also seen in the adductor compartment. Other: No Cortes?s cyst. No soft tissue swelling. IMPRESSION: 1. No fractures or erosive changes. 2. Iliopsoas muscle is abnormally swollen and is muscle density, compatible with intra-muscular hematoma. 2. Similar abnormal muscle density is seen in the adductor gregorio and adductor brevis musculature. 4. Intramuscular septal fluid also seen in the adductor compartment. - EKG Results EKG Interpreted Independently: Yes Core Measures - Anticipated LOS I expect patient to be DC'd or transferred within 96 hours.: Yes - DVT/VTE - Prophylaxis VTE/DVT Device ordered at admit?: Yes VTE/DVT Prophylaxis med ordered at admit?: No Not Ordered - Medical Reason: Contraindicated - Stroke - Rehab Assessment Rehab services assessment to be ordered?: Yes - AMI - Statin at Admit Aspirin Prescribed on Admit: No Not Ordered - Medical Reason: Contraindicated
[2017-08-04] MEDS: SODIUM CHLORIDE FLUSH 0.9% 10 ML SYRINGE IVP SCH ×2 (19:25→21:56)
[2017-08-04] MEDS: SODIUM CHLORIDE 0.9% 1,000 ML IV SCH (21:51)
[2017-08-04] MEDS: METHOCARBAMOL 500 MG TABLET PO SCH (21:55)
[2017-08-05] MEDS: oxyCODONE 5 MG TABLET PO PRN ×4 (00:37→17:07)
[2017-08-05 06:02] LABS: BASOPHILS # (AUTO) 0.1 10^3/uL (0.0-0.1); BASOPHILS % (AUTO) 0.8 %; EOSINOPHILS # (AUTO) 0.3 10^3/uL (0.0-0.7); EOSINOPHILS % (AUTO) 3.2 %; HGB - HEMOGLOBIN 8.4 g/dL (12.0-16.0); LYMPHOCYTES # (AUTO) 1.5 10^3/uL (1.5-3.5); LYMPHOCYTES % (AUTO) 16.1 %; MEAN CORPUSCULAR HEMOGLOBIN 28.5 pg (27.0-31.0); MEAN CORPUSCULAR HGB CONC 32.9 g/dL (32.0-36.0); MEAN CORPUSCULAR VOLUME 86.8 fL (81.0-99.0); MEAN PLATELET VOLUME 8.2 fL (7.9-10.8); MONOCYTES # (AUTO) 0.8 10^3/uL (0.0-1.0); MONOCYTES % (AUTO) 8.6 %; NEUTROPHILS # (AUTO) 6.7 10^3/uL (1.5-6.6); NEUTROPHILS % (AUTO) 71.3 %; PLT - PLATELET COUNT 281 10^3/uL (130-450); RED BLOOD COUNT 2.95 10^6/uL (4.20-5.40); RED CELL DISTRIBUTION WIDTH 15.6 % (12.0-15.0); WHITE BLOOD COUNT 9.4 x10^3/uL (4.8-10.8)
[2017-08-05 06:08] LABS: INR 2.6 (0.8-1.2); PT - PROTHROMBIN TIME 28.4 secs (9.9-12.6)
[2017-08-05 06:10] LABS: ALBUMIN 3.2 g/dL (3.2-5.5); ALBUMIN/GLOBULIN RATIO 1.1 (1.0-2.2); CALCIUM 8.7 mg/dL (8.5-10.3)
[2017-08-05] MEDS: LEVOTHYROXINE 25 MCG TABLET PO SCH (06:32)
[2017-08-05] MEDS ORDERED: ONDANSETRON 4 MG/2 ML VIAL IVP PRN (08:53)
[2017-08-05] MEDS ORDERED: ONDANSETRON ODT 4 MG TABLET TL PRN (08:53)
[2017-08-05] MEDS ORDERED: PROCHLORPERAZINE 10 MG/2 ML VIAL IVP PRN (08:53)
[2017-08-05] MEDS ORDERED: PHYTONADIONE 10 MG/ML AMP IVP SCH (08:54)
[2017-08-05] MEDS: GABAPENTIN 300 MG CAPSULE PO SCH ×4 (09:01→21:21)
[2017-08-05] MEDS: ACETAMINOPHEN 325 MG TABLET PO PRN (09:01)
[2017-08-05] MEDS: METHOCARBAMOL 500 MG TABLET PO SCH ×2 (09:02→21:21)
[2017-08-05] MEDS: SODIUM CHLORIDE FLUSH 0.9% 10 ML SYRINGE IVP SCH ×2 (09:02→17:08)
[2017-08-05] MEDS: POLYETHYLENE GLYCOL 3350 17 GM PACKET PO SCH (09:02)
[2017-08-05] MEDS: SODIUM CHLORIDE 0.9% 1,000 ML IV SCH (09:14)
--- NOTE | 2017-08-05 16:16 | PROVIDER PROGRESS NOTE ---
Subjective - Prog Note Date Prog Note Date: 08/05/17 Prog Note Time: 08:00 - Subjective Pt reports feeling: Improved Subjective: Gladis is aware of her imaging results, showing no further bleeding. She denies SOB, chest pain, N/V or a new cough. Current Medications - Current Medications Current Medications: Active Medications Acetaminophen (Tylenol) 650 mg PO Q4HR PRN PRN Reason: Pain or Fever > 38C (100.4F) Last Admin: 08/05/17 09:01 Dose: 650 mg Acetaminophen/Hydrocodone Bitart ([place] 5/325) 1 tab PO Q4HR PRN PRN Reason: PAIN Gabapentin (Neurontin) 600 mg PO 0800,1200,1700,2100 [facility] Last Admin: 08/05/17 12:12 Dose: 600 mg Sodium Chloride (Normal Saline 0.9%) 1,000 mls @ 83.333 mls/hr IV .Q12H [facility] Last Infusion: 08/05/17 11:33 Dose: 0 mls/hr Levothyroxine Sodium (Synthroid) 50 mcg PO QDAC [facility] Last Admin: 08/05/17 06:32 Dose: 50 mcg Methocarbamol (Robaxin) 500 mg PO BID [facility] Last Admin: 08/05/17 09:02 Dose: 500 mg Ondansetron HCl (Zofran Inj) 4 mg IVP Q4HR PRN PRN Reason: Nausea / Vomiting Ondansetron HCl (Zofran Odt) 4 mg TL Q4HR PRN PRN Reason: Nausea / Vomiting Oxycodone HCl (Roxicodone) 5 mg PO Q4HR PRN PRN Reason: PAIN Last Admin: 08/05/17 10:41 Dose: 5 mg Polyethylene Glycol (Miralax) 17 gm PO DAILY [facility] Last Admin: 08/05/17 09:02 Dose: 17 gm Prochlorperazine Edisylate (Compazine Inj) 10 mg IVP Q4HR PRN PRN Reason: Nausea / Vomiting Sodium Chloride (Normal Saline Flush 0.9%) 10 ml IVP PRN PRN PRN Reason: NEEDED PER PROVIDER ORDERS Sodium Chloride (Normal Saline Flush 0.9%) 10 ml IVP 0100,0900,1700 [facility] Last Admin: 08/05/17 09:02 Dose: 10 ml Gabapentin 600 mg PO 0800,1200,1700,2100 11/13/13 Levothyroxine [Synthroid] 50 mcg PO QDAC 11/13/13 Lovastatin 20 mg PO QPM 11/13/13 Nabumetone 750 mg PO 1700 11/13/13 Warfarin [Coumadin] 7.5 mg PO QPM 04/28/17 Losartan Potassium 50 mg PO DAILY 08/04/17 Methocarbamol 500 mg PO 1200,2100 08/04/17 Multivitamin [Theragran] 1 tab PO DAILY 08/04/17 Multivitamin [Theragran] 1 tab PO DAILY 08/04/17 Objective - Vital Signs/Intake & Output Reviewed Vital Signs: Yes Vital Signs: Vital Signs x48h Temp Pulse Resp BP BP Pulse Ox 08/05/17 16:00 37.1 C 82 17 134/80 H 96 08/05/17 12:52 36.9 C 82 16 133/64 H 96 Intake & Output: Intake & Output 08/02/17 08/03/17 08/04/17 08/05/17 23:59 23:59 23:59 23:59 Intake Total 120 1461.662 Output Total 200 Balance 120 1261.662 - Objective General Appearance: positive: No acute distress, Alert, Lethargic Eyes Bilateral: positive: Normal inspection ENT: positive: ENT inspection nml, Pharynx nml, No signs of dehydration Neck: positive: Nml inspection, Thyroid nml, No JVD, Trachea midline Respiratory: positive: Chest non-tender, No respiratory distress, Breath sounds nml, Other (diminished with very fine crackles left low lobe.) Cardiovascular: positive: No gallop, Irregularly irregular, Systolic murmur, Decreased pulse(s) Peripheral Pulses: 1+ Radial (R), 1+ Radial (L) Abdomen: positive: Non-tender, Mass (RQ), Abnml bowel sounds Back: positive: Nml inspection Skin: positive: No rash, Warm, Dry, Pallor Extremities: positive: Pedal edema, Other (severe left thigh bruising.) Neurologic/Psychiatric: positive: Oriented x3, CN's nml (2-12), Motor nml, Sensation nml, Depressed mood/affect Reflexes: Bicep (R): 3+, Bicep (L): 3+ - Lab Results Fish Bones: 08/07/17 05:45 08/07/17 05:45 Other Labs: Lab Results x24hrs 08/05/17 08/05/17 08/05/17 Range/Units 05:41 05:41 05:41 WBC (4.8-10.8) x10^3/uL RBC (4.20-5.40) 10^6/uL Hgb (12.0-16.0) g/dL Hct (37.0-47.0) % MCV (81.0-99.0) fL MCH (27.0-31.0) pg MCHC (32.0-36.0) g/dL RDW (12.0-15.0) % Plt Count (130-450) 10^3/uL MPV (7.9-10.8) fL Neut # (1.5-6.6) 10^3/uL Lymph # (1.5-3.5) 10^3/uL Jenkins # (0.0-1.0) 10^3/uL Eos # (0.0-0.7) 10^3/uL Baso # (0.0-0.1) 10^3/uL Absolute Nucleated RBC x10^3/uL Nucleated RBC % /100WBC PT 28.4 H (9.9-12.6) secs INR 2.6 H (0.8-1.2) Sodium 138 (135-145) mmol/L Potassium 4.2 (3.5-5.0) mmol/L Chloride 107 (101-111) mmol/L Carbon Dioxide 22 (21-32) mmol/L Anion Gap 9.0 (6-13) BUN 29 H (6-20) mg/dL Creatinine 1.0 (0.4-1.0) mg/dL Estimated GFR (MDRD) 53 L (>89) Glucose 105 H (70-100) mg/dL Calcium 8.7 (8.5-10.3) mg/dL Total Bilirubin 1.0 (0.2-1.0) mg/dL AST 22 (10-42) IU/L ALT 19 (10-60) IU/L Alkaline Phosphatase 67 (42-121) IU/L Total Protein 6.0 L (6.7-8.2) g/dL Albumin 3.2 (3.2-5.5) g/dL Globulin 2.8 (2.1-4.2) g/dL Albumin/Globulin Ratio 1.1 (1.0-2.2) TSH 3.58 (0.34-5.60) uIU/mL 08/05/17 Range/Units 05:41 WBC 9.4 (4.8-10.8) x10^3/uL RBC 2.95 L (4.20-5.40) 10^6/uL Hgb 8.4 L (12.0-16.0) g/dL Hct 25.6 L (37.0-47.0) % MCV 86.8 (81.0-99.0) fL MCH 28.5 (27.0-31.0) pg MCHC 32.9 (32.0-36.0) g/dL RDW 15.6 H (12.0-15.0) % Plt Count 281 (130-450) 10^3/uL MPV 8.2 (7.9-10.8) fL Neut # 6.7 H (1.5-6.6) 10^3/uL Lymph # 1.5 (1.5-3.5) 10^3/uL Jenkins # 0.8 (0.0-1.0) 10^3/uL Eos # 0.3 (0.0-0.7) 10^3/uL Baso # 0.1 (0.0-0.1) 10^3/uL Absolute Nucleated RBC 0.00 x10^3/uL Nucleated RBC % 0.0 /100WBC PT (9.9-12.6) secs INR (0.8-1.2) Sodium (135-145) mmol/L Potassium (3.5-5.0) mmol/L Chloride (101-111) mmol/L Carbon Dioxide (21-32) mmol/L Anion Gap (6-13) BUN (6-20) mg/dL Creatinine (0.4-1.0) mg/dL Estimated GFR (MDRD) (>89) Glucose (70-100) mg/dL Calcium (8.5-10.3) mg/dL Total Bilirubin (0.2-1.0) mg/dL AST (10-42) IU/L ALT (10-60) IU/L Alkaline Phosphatase (42-121) IU/L Total Protein (6.7-8.2) g/dL Albumin (3.2-5.5) g/dL Globulin (2.1-4.2) g/dL Albumin/Globulin Ratio (1.0-2.2) TSH (0.34-5.60) uIU/mL - Diagnostic Imaging Diagnostic Imaging Results: positive: Final report reviewed Assessment/Plan - Problem List (1) Contusion of unspecified thigh, initial encounter Impression: Patient was in the ED a few days prior to admission with complaints of left thigh pain that has now progressed. Imaging shows an Iliopsoas muscle abnormality compatible with intra-muscular hematoma. Re-image was completed after 24 hours and showed further bleeding. Ortho surgery is following. Patient has improved ambulation that is gradual. Plan: Continue PT and nursing staff to assist with ambulation. (2) Pain Impression: Patient takes an NSAID at home for pain medications, but the pain in her left thigh has impaired her mobility. She has been prescribed oxycodone and tylenol. Re-imaging shows a stable hematoma, so pain is expected to improve slowly. Plan: Use pain medications. (3) Supratherapeutic INR Impression: On admission the patient's INR was elevated at 3.4, so SQ vitamin K was administered. INR today was further improved to 2.6. We will consider Eliquis on discharge as long as there is no evidence of bleeding, to use as an alternative to Warfarin due to atrial fibrillation. Plan: Monitor INR daily and give reversal. Coumadin will remain on hold.
[2017-08-05] MEDS: HYDROcod/ACETAM 5/325 MG TABLET PO PRN (18:29)
[2017-08-05] MEDS ORDERED: IOPAMIDOL-300 100 ML VIAL ONE (18:49)
[2017-08-05] MEDS ORDERED: HYDROmorphone 1 MG/ML SYRINGE IVP SCH (19:00)
[2017-08-05] MEDS ORDERED: IOPAMIDOL-300 100 ML VIAL IVP ONE (19:39)
--- NOTE | 2017-08-05 21:01 | CT Report ---
EXAM: CT ABDOMEN AND PELVIS EXAM DATE: 08/05/2017 07:45 PM. CLINICAL HISTORY: Iliopsoas hematoma. COMPARISONS: 08/04/2017 and 10/30/2015. TECHNIQUE: Routine helical CT imaging was performed through the abdomen and pelvis. IV contrast: 100 cc of Isovue-300. Enteric contrast: No. Reconstructions: Coronal and sagittal. In accordance with CT protocol optimization, one or more of the following dose reduction techniques w ere utilized for this exam: automated exposure control, adjustment of mA and/or KV based on patient s ize, or use of iterative reconstructive technique. FINDINGS: Lung Bases: Unremarkable. Liver: Normal. No masses. Gallbladder/Bile Ducts: Unremarkable. Spleen: Normal. Pancreas: Normal. Adrenal Glands: Normal. Kidneys: Normal. No masses or hydronephrosis. Peritoneal Cavity/Bowel: Diverticulosis. No free fluid, free air or adenopathy. No masses or acute in flammatory process. The appendix is well visualized and normal. Pelvic Organs: Hysterectomy. Unremarkable bladder. Vasculature: No aortic enlargement. Moderate atherosclerotic calcification. Bones: Stable fusion from lower thoracic spine to the sacrum. Other: Stable hematoma expanding the left iliopsoas muscle from the mid pelvis inferiorly to the inse rtion on the femur, largest inferiorly, involving the left abductor muscles. IMPRESSION: 1. Stable hematoma involving the lower left iliopsoas muscle and the left abductor muscles. 2. Diverticulosis without diverticulitis. 3. Hysterectomy. 4. Stable fusion, lower thoracic spine to the sacrum. [facility] Referring Provider Line: [phone] SITE ID: [id number]
--- NOTE | 2017-08-05 21:01 | CT Preliminary Report ---
Exam: CT ABDOMEN/PELVIS W/ IMPRESSION: 1. Stable hematoma involving the lower left iliopsoas muscle and the left abductor muscles. 2. Diverticulosis without diverticulitis. 3. Hysterectomy. 4. Stable fusion, lower thoracic spine to the sacrum. [facility] SITE ID: [id number]
--- NOTE | 2017-08-05 21:12 | CT Report ---
EXAM: LEFT LOWER EXTREMITY CT WITH CONTRAST EXAM DATE: 08/05/2017 07:46 PM. CLINICAL HISTORY: Iliopsoas hematoma. COMPARISON: 08/04/2017. TECHNIQUE: Thin-section axial images were acquired of the left lower extremity from hip to knee after 100 cc of Isovue-300. Post-processing: Coronal and sagittal reformats. Other: None. In accordance with CT protocol optimization, one or more of the following dose reduction techniques w ere utilized for this exam: automated exposure control, adjustment of mA and/or KV based on patient s ize, or use of iterative reconstructive technique. FINDINGS: Bones: No fracture or bone lesion. Joints: The joint spaces are preserved. No calcified loose bodies. No large effusion. Musculature: The intramuscular hematoma expanding the left lower iliopsoas and left adductor muscles has not changed in amount or configuration. No new hemorrhage identified. No sign of active extravasa tion. Other: No Bakers cyst. Mild subcutaneous edema. IMPRESSION: Stable intramuscular hematoma involving the lower left iliopsoas muscle and left adductor muscles. [facility] Referring Provider Line: [phone] SITE ID: [id number]
[2017-08-06] MEDS: SODIUM CHLORIDE FLUSH 0.9% 10 ML SYRINGE IVP SCH ×4 (00:12→23:50)
[2017-08-06 00:15] LABS: BILIRUBIN,URINE NEGATIVE (NEGATIVE); GLUCOSE, URINE (UA) NEGATIVE (NEGATIVE); KETONES,URINE (UA) NEGATIVE (NEGATIVE); LEUKOCYTE ESTERASE, URINE NEGATIVE (NEGATIVE); NITRITE,URINE NEGATIVE (NEGATIVE); OCCULT BLOOD,URINE TRACE-LYSE (NEGATIVE); PROTEIN,URINE NEGATIVE (NEGATIVE); UROBILINOGEN,URINE 0.2 (NORMAL) E.U./dL (NORMAL)
[2017-08-06 00:35] LABS: CLARITY,URINE CLEAR (CLEAR)
[2017-08-06 05:39] LABS: INR 1.2 (0.8-1.2); PT - PROTHROMBIN TIME 13.5 secs (9.9-12.6)
[2017-08-06 05:44] LABS: ALBUMIN 3.1 g/dL (3.2-5.5); ALBUMIN/GLOBULIN RATIO 1.1 (1.0-2.2); BILIRUBIN,TOTAL 0.8 mg/dL (0.2-1.0); CALCIUM 8.9 mg/dL (8.5-10.3); TOTAL PROTEIN 5.9 g/dL (6.7-8.2)
[2017-08-06 06:09] LABS: BASOPHILS # (AUTO) 0.1 10^3/uL (0.0-0.1); BASOPHILS % (AUTO) 0.9 %; EOSINOPHILS # (AUTO) 0.3 10^3/uL (0.0-0.7); EOSINOPHILS % (AUTO) 2.8 %; HGB - HEMOGLOBIN 7.9 g/dL (12.0-16.0); LYMPHOCYTES # (AUTO) 1.7 10^3/uL (1.5-3.5); LYMPHOCYTES % (AUTO) 18.7 %; MEAN CORPUSCULAR HEMOGLOBIN 28.1 pg (27.0-31.0); MEAN CORPUSCULAR HGB CONC 32.1 g/dL (32.0-36.0); MEAN CORPUSCULAR VOLUME 87.5 fL (81.0-99.0); MEAN PLATELET VOLUME 8.6 fL (7.9-10.8); MONOCYTES # (AUTO) 0.9 10^3/uL (0.0-1.0); MONOCYTES % (AUTO) 9.8 %; NEUTROPHILS # (AUTO) 6.3 10^3/uL (1.5-6.6); NEUTROPHILS % (AUTO) 67.8 %; PLT - PLATELET COUNT 270 10^3/uL (130-450); RED BLOOD COUNT 2.81 10^6/uL (4.20-5.40); RED CELL DISTRIBUTION WIDTH 15.5 % (12.0-15.0); WHITE BLOOD COUNT 9.4 x10^3/uL (4.8-10.8)
[2017-08-06] MEDS: LEVOTHYROXINE 25 MCG TABLET PO SCH (06:16)
[2017-08-06] MEDS: METHOCARBAMOL 500 MG TABLET PO SCH ×2 (08:48→20:59)
[2017-08-06] MEDS: GABAPENTIN 300 MG CAPSULE PO SCH ×4 (08:49→20:59)
[2017-08-06] MEDS: POLYETHYLENE GLYCOL 3350 17 GM PACKET PO SCH (08:50)
[2017-08-06] MEDS: ACETAMINOPHEN 325 MG TABLET PO PRN (10:27)
--- NOTE | 2017-08-06 12:20 | PROVIDER PROGRESS NOTE ---
Subjective - Prog Note Date Prog Note Date: 08/06/17 Prog Note Time: 09:00 - Subjective Pt reports feeling: Improved Subjective: Gladis requests that imaging from recent CT scans are forwarded to Dr. Jorge Gacria. She states that she has improved ambulation, but has some reservation about stairs. Current Medications - Current Medications Current Medications: Active Medications Acetaminophen (Tylenol) 650 mg PO Q4HR PRN PRN Reason: Pain or Fever > 38C (100.4F) Last Admin: 08/06/17 10:27 Dose: 650 mg Acetaminophen/Hydrocodone Bitart ([place] 5/325) 1 tab PO Q4HR PRN PRN Reason: PAIN Last Admin: 08/06/17 15:46 Dose: 1 tab Gabapentin (Neurontin) 600 mg PO 0800,1200,1700,2100 [facility] Last Admin: 08/06/17 16:04 Dose: 600 mg Levothyroxine Sodium (Synthroid) 50 mcg PO QDAC [facility] Last Admin: 08/06/17 06:16 Dose: 50 mcg Methocarbamol (Robaxin) 500 mg PO BID [facility] Last Admin: 08/06/17 08:48 Dose: 500 mg Ondansetron HCl (Zofran Inj) 4 mg IVP Q4HR PRN PRN Reason: Nausea / Vomiting Ondansetron HCl (Zofran Odt) 4 mg TL Q4HR PRN PRN Reason: Nausea / Vomiting Oxycodone HCl (Roxicodone) 5 mg PO Q4HR PRN PRN Reason: PAIN Last Admin: 08/05/17 17:07 Dose: 5 mg Polyethylene Glycol (Miralax) 17 gm PO DAILY [facility] Last Admin: 08/06/17 08:50 Dose: 17 gm Prochlorperazine Edisylate (Compazine Inj) 10 mg IVP Q4HR PRN PRN Reason: Nausea / Vomiting Sodium Chloride (Normal Saline Flush 0.9%) 10 ml IVP PRN PRN PRN Reason: NEEDED PER PROVIDER ORDERS Sodium Chloride (Normal Saline Flush 0.9%) 10 ml IVP 0100,0900,1700 [facility] Last Admin: 08/06/17 08:51 Dose: 10 ml Gabapentin 600 mg PO 0800,1200,1700,2100 11/13/13 Levothyroxine [Synthroid] 50 mcg PO QDAC 11/13/13 Lovastatin 20 mg PO QPM 11/13/13 Nabumetone 750 mg PO 1700 11/13/13 Warfarin [Coumadin] 7.5 mg PO QPM 04/28/17 Losartan Potassium 50 mg PO DAILY 08/04/17 Methocarbamol 500 mg PO 1200,2100 08/04/17 Multivitamin [Theragran] 1 tab PO DAILY 08/04/17 Multivitamin [Theragran] 1 tab PO DAILY 08/04/17 Objective - Vital Signs/Intake & Output Reviewed Vital Signs: Yes Vital Signs: Vital Signs x48h Temp Pulse Resp BP Pulse Ox 08/06/17 11:30 36.7 C 86 20 142/74 H 96 08/06/17 08:22 36.7 C 89 18 128/61 96 Intake & Output: Intake & Output 08/03/17 08/04/17 08/05/17 08/06/17 23:59 23:59 23:59 23:59 Intake Total 440 580 Output Total 450 Balance -10 580 - Objective General Appearance: positive: No acute distress, Alert Eyes Bilateral: positive: Normal inspection, PERRL ENT: positive: ENT inspection nml, Pharynx nml, No signs of dehydration Neck: positive: Nml inspection, Thyroid nml Respiratory: positive: Chest non-tender, No respiratory distress, Other (slight , bilateral low lobe crackles.) Cardiovascular: positive: Irregularly irregular, Systolic murmur, Decreased pulse(s) Peripheral Pulses: 2+ Radial (R), 2+ Radial (L) Abdomen: positive: Non-tender, No organomegaly, Nml bowel sounds, No distention Back: positive: Nml inspection Skin: positive: No rash, Warm, Dry, Pallor Extremities: positive: Non-tender, Full ROM, Nml appearance, No pedal edema Neurologic/Psychiatric: positive: Oriented x3, CN's nml (2-12), Motor nml, Sensation nml, Weakness, Depressed mood/affect Reflexes: Bicep (R): 1+, Bicep (L): 1+ - Lab Results Fish Bones: 08/07/17 05:45 08/07/17 05:45 Other Labs: Lab Results x24hrs 02/24/18 02/24/18 02/24/18 Range/Units 05:17 05:17 05:17 WBC 9.4 (4.8-10.8) x10^3/uL RBC 2.81 L (4.20-5.40) 10^6/uL Hgb 7.9 L (12.0-16.0) g/dL Hct 24.5 L (37.0-47.0) % MCV 87.5 (81.0-99.0) fL MCH 28.1 (27.0-31.0) pg MCHC 32.1 (32.0-36.0) g/dL RDW 15.5 H (12.0-15.0) % Plt Count 270 (130-450) 10^3/uL MPV 8.6 (7.9-10.8) fL Neut # 6.3 (1.5-6.6) 10^3/uL Lymph # 1.7 (1.5-3.5) 10^3/uL [place] # 0.9 (0.0-1.0) 10^3/uL Eos # 0.3 (0.0-0.7) 10^3/uL Baso # 0.1 (0.0-0.1) 10^3/uL Absolute Nucleated RBC 0.00 x10^3/uL Nucleated RBC % 0.0 /100WBC PT 13.5 H (9.9-12.6) secs INR 1.2 (0.8-1.2) Sodium 140 (135-145) mmol/L Potassium 4.3 (3.5-5.0) mmol/L Chloride 106 (101-111) mmol/L Carbon Dioxide 24 (21-32) mmol/L Anion Gap 10.0 (6-13) BUN 23 H (6-20) mg/dL Creatinine 1.0 (0.4-1.0) mg/dL Estimated GFR (MDRD) 53 L (>89) Glucose 107 H (70-100) mg/dL Calcium 8.9 (8.5-10.3) mg/dL Total Bilirubin 0.8 (0.2-1.0) mg/dL AST 21 (10-42) IU/L ALT 18 (10-60) IU/L Alkaline Phosphatase 59 (42-121) IU/L Total Protein 5.9 L (6.7-8.2) g/dL Albumin 3.1 L (3.2-5.5) g/dL Globulin 2.8 (2.1-4.2) g/dL Albumin/Globulin Ratio 1.1 (1.0-2.2) - Diagnostic Imaging Diagnostic Imaging Results: positive: Prelim report reviewed, Final report reviewed Diagnostic Imaging Comments: EXAM: LEFT LOWER EXTREMITY CT WITH CONTRAST EXAM DATE: 08/05/2017 07:46 PM. CLINICAL HISTORY: Iliopsoas hematoma. COMPARISON: 08/04/2017. TECHNIQUE: Thin-section axial images were acquired of the left lower extremity from hip to knee after 100 cc of Isovue-300. Post-processing: Coronal and sagittal reformats. Other: None. In accordance with CT protocol optimization, one or more of the following dose reduction techniques were utilized for this exam: automated exposure control, adjustment of mA and/or KV based on patient size, or use of iterative reconstructive technique. FINDINGS: Bones: No fracture or bone lesion. Joints: The joint spaces are preserved. No calcified loose bodies. No large effusion. Musculature: The intramuscular hematoma expanding the left lower iliopsoas and left adductor muscles has not changed in amount or configuration. No new hemorrhage identified. No sign of active extravasation. Other: No Cortes?s cyst. Mild subcutaneous edema. IMPRESSION: Stable intramuscular hematoma involving the lower left iliopsoas muscle and left adductor muscles. EXAM: CT ABDOMEN AND PELVIS EXAM DATE: 08/05/2017 07:45 PM. CLINICAL HISTORY: Iliopsoas hematoma. COMPARISONS: 08/04/2017 and 10/30/2015. TECHNIQUE: Routine helical CT imaging was performed through the abdomen and pelvis. IV contrast: 100 cc of Isovue-300. Enteric contrast: No. Reconstructions : Coronal and sagittal. In accordance with CT protocol optimization, one or more of the following dose reduction techniques were utilized for this exam: automated exposure control, adjustment of mA and/or KV based on patient size, or use of iterative reconstructive technique. FINDINGS: Lung Bases: Unremarkable. Liver: Normal. No masses. Gallbladder/Bile Ducts: Unremarkable. Spleen: Normal. Pancreas: Normal. Adrenal Glands: Normal. Kidneys: Normal. No masses or hydronephrosis. Peritoneal Cavity/Bowel: Diverticulosis. No free fluid, free air or adenopathy. No masses or acute inflammatory process. The appendix is well visualized and normal. Pelvic Organs: Hysterectomy. Unremarkable bladder. Vasculature: No aortic enlargement. Moderate atherosclerotic calcification. Bones: Stable fusion from lower thoracic spine to the sacrum. Other: Stable hematoma expanding the left iliopsoas muscle from the mid pelvis inferiorly to the insertion on the femur, largest inferiorly, involving the left abductor muscles. IMPRESSION: 1. Stable hematoma involving the lower left iliopsoas muscle and the left abductor muscles. 2. Diverticulosis without diverticulitis. 3. Hysterectomy. 4. Stable fusion, lower thoracic spine to the sacrum. Assessment/Plan - Problem List (1) Contusion of unspecified thigh, initial encounter Impression: Patient was in the ED a few days prior to admission with complaints of left thigh pain that has now progressed. Imaging shows an Iliopsoas muscle abnormality compatible with intra-muscular hematoma. Re-image was completed after 24 hours and showed further bleeding. Ortho surgery is following. Patient has improved ambulation that is gradual. Plan: Continue PT and nursing staff to assist with ambulation. (2) Pain Impression: Patient takes an NSAID at home for pain medications, but the pain in her left thigh has impaired her mobility. She has been prescribed oxycodone and tylenol. Re-imaging shows a stable hematoma, so pain is expected to improve slowly. Plan: Use pain medications. (3) Supratherapeutic INR Impression: On admission the patient's INR was elevated at 3.4, so SQ vitamin K was administered. INR today was further improved to 1.1. We will consider Eliquis on discharge as long as there is no evidence of bleeding, to use as an alternative to Warfarin due to atrial fibrillation. Plan: Monitor INR daily and give reversal. Plan to start Apixiban in AM, then home after stair evaluation.
[2017-08-06] MEDS: HYDROcod/ACETAM 5/325 MG TABLET PO PRN ×2 (15:46→20:59)
[2017-08-07] MEDS: LEVOTHYROXINE 25 MCG TABLET PO SCH (06:09)
[2017-08-07 06:10] LABS: BASOPHILS # (AUTO) 0.1 10^3/uL (0.0-0.1); BASOPHILS % (AUTO) 0.7 %; EOSINOPHILS # (AUTO) 0.4 10^3/uL (0.0-0.7); EOSINOPHILS % (AUTO) 4.1 %; LYMPHOCYTES # (AUTO) 1.7 10^3/uL (1.5-3.5); LYMPHOCYTES % (AUTO) 17.1 %; MEAN CORPUSCULAR HEMOGLOBIN 28.9 pg (27.0-31.0); MEAN CORPUSCULAR HGB CONC 33.1 g/dL (32.0-36.0); MEAN CORPUSCULAR VOLUME 87.3 fL (81.0-99.0); MEAN PLATELET VOLUME 8.4 fL (7.9-10.8); MONOCYTES # (AUTO) 0.8 10^3/uL (0.0-1.0); NEUTROPHILS % (AUTO) 70.1 %; PLT - PLATELET COUNT 263 10^3/uL (130-450); RED BLOOD COUNT 2.76 10^6/uL (4.20-5.40); RED CELL DISTRIBUTION WIDTH 15.9 % (12.0-15.0)
[2017-08-07 06:14] LABS: INR 1.1 (0.8-1.2); PT - PROTHROMBIN TIME 12.6 secs (9.9-12.6)
[2017-08-07 06:23] LABS: ALBUMIN 3.2 g/dL (3.2-5.5); ALBUMIN/GLOBULIN RATIO 1.2 (1.0-2.2); BILIRUBIN,TOTAL 0.5 mg/dL (0.2-1.0); CALCIUM 8.8 mg/dL (8.5-10.3); TOTAL PROTEIN 5.9 g/dL (6.7-8.2)
[2017-08-07 08:03] VITALS: BP 135/70
[2017-08-07] MEDS: GABAPENTIN 300 MG CAPSULE PO SCH ×2 (08:06→11:55)
[2017-08-07] MEDS: HYDROcod/ACETAM 5/325 MG TABLET PO PRN (08:06)
[2017-08-07] MEDS: METHOCARBAMOL 500 MG TABLET PO SCH (08:07)
[2017-08-07] MEDS: POLYETHYLENE GLYCOL 3350 17 GM PACKET PO SCH (08:07)
[2017-08-07] MEDS: SODIUM CHLORIDE FLUSH 0.9% 10 ML SYRINGE IVP SCH (08:07)
[2017-08-07] MEDS ORDERED: FUROSEMIDE 20 MG TABLET PO ONE (11:19)
--- NOTE | 2017-08-07 11:33 | Discharge Plan ---
Discharge Plan Disposition: Home, Self Care Condition: Good Prescriptions: Acetaminophen [Tylenol] 650 mg PO Q4HR PRN #30 tablet PRN Reason: Pain Or Fever > 38c (100.4f) HYDROcod/ACETAM 5/325 [[place] 5/325] 1 tab PO Q4HR PRN #20 tablet PRN Reason: Pain Apixaban [Eliquis] 5 mg PO BID #60 tablet Diet: Regular Activity Restrictions: Wt Bearing as Tolerated Shower Restrictions: No Driving Restrictions: No Weight Bearing: Full Weight Additional Instructions or Follow Up instructions: You were admitted for left leg pain and the inability to walk. Your Coumadin was discontinued. You should take another type of blood thinner as this will not influence as many clotting factors and is less likely to cause bleeding. Follow up imaging showed a stable hematoma and your pain and walking improved. I spoke with Dr. Ventura, orthopedic surgery, who reviewed your case and agrees with not doing procedures or surgery. You should be mindful for the next month about signs of infection such as increased pain, a fever, chills or increased fatigue. Your lungs were congested, so I checked a lab that indicated fluid overload. A one time dose of lasix was given. Please follow up with your PCP within one week. You requested imaging from recent CT scans to be forwarded to [facility]. Jorge Chavez. No Smoking: If you smoke, Please STOP! Call for help. Follow-up with: Dolly Cruz MD [Primary Care Provider] -
--- NOTE | 2017-08-07 11:40 | DISCHARGE SUMMARY ---
Discharge Summary Admit Date: 08/04/17 Discharge Date: 08/07/17 Discharging Provider: KHADRA Hernandez Primary Care Provider: Dolly Cruz Code Status: Do Not Attempt Resuscitation Condition at Discharge: Good Discharge Disposition: 01 Home, Self Care - DIAGNOSES Admission Diagnoses: Contusion of unspecified thigh, initial encounter (S70.10XA) Pain, unspecified (R52) Discharge Diagnoses with Status of Each Condition: Hematoma of iliopsoas muscle (S70.10XA) ongoing, stable, and patient is to resume a new blood thinner. Pain (R52) resolved, stable. Supratherapeutic INR (R79.1) resolved, stable. - HPI History of Present Illness: Gladis Dillard is a small stature 82-year old white female with a past medical history of DVT, PE, irregular heart rate, osteoarthritis, hypothyroidism, hyperlipidemia, and hypertension. She woke up this morning and could not get out of bed, so she called her neighbor who helped her clean up and an ambulance was called. She admits to feeling a sudden sharp pain in her left hip while she was leaning over her sink and brushing her teeth. She had immediate pain, so went to bed. Once she was in the ED, imaging noted a illeopsoad and adductur gregorio and brevis hematoma. Orthopedic surgery was contacted, Dr. Bolden who recommends reversing her INR, watching H/H, and it is not felt that compartment syndrome is likely given the muscle groups involved. - HOSPITAL COURSE Hospital Course: The following diagnoses were prevalent during this hospital stay: (1) Contusion of unspecified thigh, initial encounter- Patient was in the ED a few days prior to admission with complaints of left thigh pain that has now progressed. Imaging shows an Iliopsoas muscle abnormality compatible with intra -muscular hematoma. Re-image was completed after 24 hours and showed further bleeding. Ortho surgery is following. Patient has improved ambulation that is gradual. Patient worked with PT and nursing staff to assist with ambulation. Her ambulation was nearly back to baseline at the time of discharge. (2) Pain- Patient takes an NSAID at home for pain medications, but the pain in her left thigh has impaired her mobility. She has been prescribed oxycodone and tylenol. Re-imaging shows a stable hematoma, so pain is expected to improve slowly. Patient was given pain medications, and mostly used tylenol. (3) Supratherapeutic INR- On admission the patient's INR was elevated at 3.4, so SQ vitamin K was administered. INR today was further improved to 1.1. Eliquis was prescribed on discharge, since there was no evidence of bleeding further. Since there was no history of brain or bowel bleeding, Eliquis was a safe alternative to Warfarin to be given for atrial fibrillation. Disposition: The patient was transported in stable condition home after she passed her PT evaluation. - ALLERGIES Allergies/Adverse Reactions: Allergies Allergy/AdvReac Type Severity Reaction Status Date / Time Sulfa (Sulfonamide Allergy Intermediate Hives Verified 08/04/17 10:29 Antibiotics) clarithromycin [From Biaxin] Allergy Dizziness Verified 08/04/17 10:29 - MEDICATIONS Home Medications: Ambulatory Orders Medication Instructions Recorded Confirmed Gabapentin 600 mg PO 0800,1200,1700,2100 11/13/13 08/04/17 Levothyroxine [Synthroid] 50 mcg PO QDAC 11/13/13 08/04/17 Lovastatin 20 mg PO QPM 11/13/13 08/04/17 Nabumetone 750 mg PO 1700 11/13/13 08/04/17 Losartan Potassium 50 mg PO DAILY 08/04/17 08/04/17 Methocarbamol 500 mg PO 1200,2100 08/04/17 08/04/17 Multivitamin [Theragran] 1 tab PO DAILY 08/04/17 08/04/17 Multivitamin [Theragran] 1 tab PO DAILY 08/04/17 08/04/17 Acetaminophen [Tylenol] 650 mg PO Q4HR PRN #30 tablet 08/07/17 Apixaban [Eliquis] 5 mg PO BID #60 tablet 08/07/17 HYDROcod/ACETAM 5/325 [[place] 5/325] 1 tab PO Q4HR PRN #20 tablet 08/07/17 - PHYSICAL EXAM AT DISCHARGE General Appearance: positive: No acute distress, Alert Eyes Bilateral: positive: Normal inspection, PERRL ENT: positive: ENT inspection nml, Pharynx nml, No signs of dehydration Neck: positive: Nml inspection, Thyroid nml, No JVD, Trachea midline Respiratory: positive: Chest non-tender, No respiratory distress, Rhonchi Cardiovascular: positive: No gallop, Irregularly irregular, Decreased pulse(s) Peripheral Pulses: positive: 1+ Abdomen: positive: Non-tender, No organomegaly, Mass (right abdomen) Back: positive: Nml inspection Skin: positive: No rash, Warm, Dry, Pallor Extremities: positive: Non-tender, Full ROM, Nml appearance Neurologic/Psychiatric: positive: Oriented x3, CN's nml (2-12), Motor nml, Weakness, Depressed mood/affect Reflexes: Bicep (R): 1+, Bicep (L): 1+ - LABS Result Diagrams: 08/07/17 05:45 08/07/17 05:45 - DIAGNOSTIC IMAGING Diagnostic Imaging Results: Final report reviewed Diagnostic Imaging Results Comments: EXAM: LEFT FEMUR RADIOGRAPHY EXAM DATE: 08/04/2017 11:43 AM. CLINICAL HISTORY: Severe pain, cannot bear weight. COMPARISON: 07/23/2017 TECHNIQUE: 2 views. FINDINGS: Bones: Postsurgical changes in the pelvis from prior fusion surgery. No fracture or bone lesion. Joints: The imaged hip and knee joints are anatomically aligned. Soft Tissues: No soft tissue swelling. IMPRESSION: Negative left femur radiography for acute findings. EXAM: LEFT FEMUR CT WITHOUT CONTRAST EXAM DATE: 08/04/2017 02:30 PM. CLINICAL HISTORY: Severe left hip, femur, and knee pain with hematoma. COMPARISON: None. TECHNIQUE: Thin-section axial images were acquired of the knee without contrast. Post-processing: Coronal and sagittal reformats. Other: None. In accordance with CT protocol optimization, one or more of the following dose reduction techniques were utilized for this exam: automated exposure control, adjustment of mA and/or KV based on patient size, or use of iterative reconstructive technique. FINDINGS: Bones: No fracture or bone lesion. Joints: The joint spaces are preserved. No calcified loose bodies. No large effusion. Musculature: Left iliacus, psoas musculature is abnormally swollen and is muscle density. There is also abnormal muscle density swelling involving the adductor gregorio and adductor brevis. Some intermuscular septal fluid also seen in the adductor compartment. Other: No Cortes?s cyst. No soft tissue swelling. IMPRESSION: 1. No fractures or erosive changes. 2. Iliopsoas muscle is abnormally swollen and is muscle density, compatible with intra-muscular hematoma. 2. Similar abnormal muscle density is seen in the adductor gregorio and adductor brevis musculature. 4. Intramuscular septal fluid also seen in the adductor compartment. EXAM: LEFT LOWER EXTREMITY CT WITH CONTRAST EXAM DATE: 08/05/2017 07:46 PM. CLINICAL HISTORY: Iliopsoas hematoma. COMPARISON: 08/04/2017. TECHNIQUE: Thin-section axial images were acquired of the left lower extremity from hip to knee after 100 cc of Isovue-300. Post-processing: Coronal and sagittal reformats. Other: None. In accordance with CT protocol optimization, one or more of the following dose reduction techniques were utilized for this exam: automated exposure control, adjustment of mA and/or KV based on patient size, or use of iterative reconstructive technique. FINDINGS: Bones: No fracture or bone lesion. Joints: The joint spaces are preserved. No calcified loose bodies. No large effusion. Musculature: The intramuscular hematoma expanding the left lower iliopsoas and left adductor muscles has not changed in amount or configuration. No new hemorrhage identified. No sign of active extravasation. Other: No Cortes?s cyst. Mild subcutaneous edema. IMPRESSION: Stable intramuscular hematoma involving the lower left iliopsoas muscle and left adductor muscles. EXAM: CT ABDOMEN AND PELVIS EXAM DATE: 08/05/2017 07:45 PM. CLINICAL HISTORY: Iliopsoas hematoma. COMPARISONS: 08/04/2017 and 10/30/2015. TECHNIQUE: Routine helical CT imaging was performed through the abdomen and pelvis. IV contrast: 100 cc of Isovue-300. Enteric contrast: No. Reconstructions : Coronal and sagittal. In accordance with CT protocol optimization, one or more of the following dose reduction techniques were utilized for this exam: automated exposure control, adjustment of mA and/or KV based on patient size, or use of iterative reconstructive technique. FINDINGS: Lung Bases: Unremarkable. Liver: Normal. No masses. Gallbladder/Bile Ducts: Unremarkable. Spleen: Normal. Pancreas: Normal. Adrenal Glands: Normal. Kidneys: Normal. No masses or hydronephrosis. Peritoneal Cavity/Bowel: Diverticulosis. No free fluid, free air or adenopathy. No masses or acute inflammatory process. The appendix is well visualized and normal. Pelvic Organs: Hysterectomy. Unremarkable bladder. Vasculature: No aortic enlargement. Moderate atherosclerotic calcification. Bones: Stable fusion from lower thoracic spine to the sacrum. Other: Stable hematoma expanding the left iliopsoas muscle from the mid pelvis inferiorly to the insertion on the femur, largest inferiorly, involving the left abductor muscles. IMPRESSION: 1. Stable hematoma involving the lower left iliopsoas muscle and the left abductor muscles. 2. Diverticulosis without diverticulitis. 3. Hysterectomy. 4. Stable fusion, lower thoracic spine to the sacrum. EXAM: WCP/CXR WCP TWO VIEW CHEST: 08/10/2017 CLINICAL INDICATION: Cough. COMPARISON: 05/27/2017. FINDINGS: Frontal and lateral views of the chest demonstrate a normal cardiac silhouette. The lungs are clear, but hyperinflated, suggestive of COPD. No focal infiltrate, effusion, or pneumothorax is present. Spinal fusion hardware appears stable. IMPRESSION: HYPERINFLATION, COMPATIBLE WITH COPD. NO EVIDENCE OF ACUTE CARDIOPULMONARY DISEASE. - FOLLOW UP Follow Up: Disposition: Home, Self Care Condition: Good Prescriptions: Acetaminophen [Tylenol] 650 mg PO Q4HR PRN #30 tablet PRN Reason: Pain Or Fever > 38c (100.4f) HYDROcod/ACETAM 5/325 [[place] 5/325] 1 tab PO Q4HR PRN #20 tablet PRN Reason: Pain Apixaban [Eliquis] 5 mg PO BID #60 tablet Diet: Regular Activity Restrictions: Wt Bearing as Tolerated Shower Restrictions: No Driving Restrictions: No Weight Bearing: Full Weight Additional Instructions or Follow Up instructions: You were admitted for left leg pain and the inability to walk. Your Coumadin was discontinued. You should take another type of blood thinner as this will not influence as many clotting factors and is less likely to cause bleeding. Follow up imaging showed a stable hematoma and your pain and walking improved. I spoke with Dr. Ventura, orthopedic surgery, who reviewed your case and agrees with not doing procedures or surgery. You should be mindful for the next month about signs of infection such as increased pain, a fever, chills or increased fatigue. Your lungs were congested, so I checked a lab that indicated fluid overload. A one time dose of lasix was given. Please follow up with your PCP within one week. You requested imaging from recent CT scans to be forwarded to [facility]-Dr. Jorge Chavez. - TIME SPENT Time Spent in Discharge (Minutes): 45
== END 2017-08-07 13:50 | disposition home or self-care (01) | DRG 556 ==
LOC: EDUNIT# → EDBD → ED 10:21 → OBS 16:52 → OBSVTOIN 08-05 16:01 → MS2 08-05 17:28
PROVIDERS: ADMIT Nurse Practitioner; ATTEND Nurse Practitioner
DX: M79.81 Nontraumatic hematoma of soft tissue (principal); R71.0 Precipitous drop in hematocrit; Z79.01 Long term (current) use of anticoagulants; Z86.718 Personal history of other venous thrombosis and embolism; E03.9 Hypothyroidism, unspecified; E78.5 Hyperlipidemia, unspecified; I10 Essential (primary) hypertension; M19.90 Unspecified osteoarthritis, unspecified site; M81.0 Age-related osteoporosis without current pathological fracture; Z66 Do not resuscitate; R79.1 Abnormal coagulation profile
CPT/HCPCS: 36415; 74177; 80048; 80053; 81001; 81003; 83880; 84443; 85025; 85610; 87086; 96361; 96372; 96374; 99284

== ENCOUNTER 2017-11-15 08:00 | Outpatient (CLI) | payer MEDICARE, OTHER ==
[2017-11-15 19:39] LABS: ALBUMIN 3.7 g/dL (3.2-5.5); ALBUMIN/GLOBULIN RATIO 1.1 (1.0-2.2); ALKALINE PHOSPHATASE 72 IU/L (42-121); ALT ALANINE AMINOTRANSFERASE 26 IU/L (10-60); AST ASPARTATE AMINOTRANSFERASE 31 IU/L (10-42); BILIRUBIN,TOTAL 1.3 mg/dL (0.2-1.0); BUN - BLOOD UREA NITROGEN 33 mg/dL (6-20); CARBON DIOXIDE - CO2 26 mmol/L (21-32); CHLORIDE 95 mmol/L (101-111); CHOL/HDL RATIO 2.5 (<4.4); CHOLESTEROL 232 mg/dL; CREATININE 1.4 mg/dL (0.4-1.0); GFR - MDRD 36 (>89); GLUCOSE 113 mg/dL (70-100); HDL CHOLESTEROL 91 mg/dL; LDL CHOLESTEROL,CALCULATED 130 mg/dL; LDL/HDL RATIO 1.4 (<4.4); SODIUM 129 mmol/L (135-145); TOTAL PROTEIN 7.1 g/dL (6.7-8.2); VLDL CHOLESTEROL 11 mg/dL
== END 2017-11-15 08:01 | disposition home or self-care (01) ==
LOC: LAB.WCP 08:00
PROVIDERS: ATTEND Family Medicine
DX: E78.5 Hyperlipidemia, unspecified (principal)
CPT/HCPCS: 36415; 80053; 80061; 83721

== ENCOUNTER 2017-12-02 10:11 | Outpatient (CLI) | payer MEDICARE, OTHER ==
[2017-12-02 13:54] LABS: CALCIUM 9.7 mg/dL (8.5-10.3); CREATININE 1.5 mg/dL (0.4-1.0)
== END 2017-12-02 10:12 | disposition home or self-care (01) ==
LOC: LAB.WCP 10:11
PROVIDERS: ATTEND Family Medicine
DX: I10 Essential (primary) hypertension (principal)
CPT/HCPCS: 36415; 80048

== ENCOUNTER 2018-01-30 08:00 | Outpatient (CLI) | payer MEDICARE, OTHER ==
[2018-01-30 19:37] LABS: CALCIUM 10.1 mg/dL (8.5-10.3); CREATININE 1.3 mg/dL (0.4-1.0)
== END 2018-01-30 08:01 | disposition home or self-care (01) ==
LOC: LAB.WCP 08:00
PROVIDERS: ATTEND Family Medicine
DX: N28.9 Disorder of kidney and ureter, unspecified (principal)
CPT/HCPCS: 36415; 80048

== ENCOUNTER 2018-05-10 08:20 | Outpatient (CLI) | payer MEDICARE, OTHER ==
[2018-05-10 12:41] LABS: BASOPHILS # (AUTO) 0.1 10^3/uL (0.0-0.1); BASOPHILS % (AUTO) 0.9 %; EOSINOPHILS # (AUTO) 0.4 10^3/uL (0.0-0.7); EOSINOPHILS % (AUTO) 5.1 %; LYMPHOCYTES # (AUTO) 1.6 10^3/uL (1.5-3.5); LYMPHOCYTES % (AUTO) 20.2 %; MEAN CORPUSCULAR HEMOGLOBIN 30.2 pg (27.0-31.0); MEAN CORPUSCULAR HGB CONC 34.2 g/dL (32.0-36.0); MEAN CORPUSCULAR VOLUME 88.4 fL (81.0-99.0); MEAN PLATELET VOLUME 9.7 fL (7.9-10.8); MONOCYTES # (AUTO) 0.6 10^3/uL (0.0-1.0); MONOCYTES % (AUTO) 8.1 %; NEUTROPHILS # (AUTO) 5.1 10^3/uL (1.5-6.6); NEUTROPHILS % (AUTO) 65.7 %; PLT - PLATELET COUNT 258 10^3/uL (130-450); RED BLOOD COUNT 3.64 10^6/uL (4.20-5.40); RED CELL DISTRIBUTION WIDTH 14.7 % (12.0-15.0); WHITE BLOOD COUNT 7.7 x10^3/uL (4.8-10.8)
[2018-05-10 12:46] LABS: ALBUMIN 3.8 g/dL (3.2-5.5); ALBUMIN/GLOBULIN RATIO 1.1 (1.0-2.2); ALKALINE PHOSPHATASE 76 IU/L (42-121); ALT ALANINE AMINOTRANSFERASE 23 IU/L (10-60); AST ASPARTATE AMINOTRANSFERASE 27 IU/L (10-42); BILIRUBIN,TOTAL 1.1 mg/dL (0.2-1.0); BUN - BLOOD UREA NITROGEN 47 mg/dL (6-20); CALCIUM 9.8 mg/dL (8.5-10.3); CARBON DIOXIDE - CO2 27 mmol/L (21-32); CHLORIDE 103 mmol/L (101-111); CHOL/HDL RATIO 2.4 (<4.4); CHOLESTEROL 229 mg/dL; CREATININE 1.4 mg/dL (0.4-1.0); GFR - MDRD 36 (>89); GLUCOSE 86 mg/dL (70-100); HDL CHOLESTEROL 94 mg/dL; LDL CHOLESTEROL,CALCULATED 119 mg/dL; LDL/HDL RATIO 1.3 (<4.4); SODIUM 139 mmol/L (135-145); TOTAL PROTEIN 7.3 g/dL (6.7-8.2); VLDL CHOLESTEROL 16 mg/dL
== END 2018-05-10 23:59 | disposition home or self-care (01) ==
LOC: LAB.WCP 08:20
PROVIDERS: ATTEND Family Medicine
DX: I10 Essential (primary) hypertension (principal); E78.5 Hyperlipidemia, unspecified; E03.9 Hypothyroidism, unspecified
CPT/HCPCS: 36415; 80053; 80061; 83721; 84443; 85025

== ENCOUNTER 2018-07-04 09:40 | Outpatient (CLI) | payer MEDICARE, OTHER ==
[2018-07-04 12:39] LABS: BASOPHILS # (AUTO) 0.1 10^3/uL (0.0-0.1); EOSINOPHILS # (AUTO) 0.4 10^3/uL (0.0-0.7); EOSINOPHILS % (AUTO) 4.3 %; HGB - HEMOGLOBIN 11.1 g/dL (12.0-16.0); LYMPHOCYTES # (AUTO) 1.2 10^3/uL (1.5-3.5); LYMPHOCYTES % (AUTO) 14.8 %; MEAN CORPUSCULAR HEMOGLOBIN 30.3 pg (27.0-31.0); MEAN CORPUSCULAR HGB CONC 34.2 g/dL (32.0-36.0); MEAN CORPUSCULAR VOLUME 88.4 fL (81.0-99.0); MEAN PLATELET VOLUME 9.5 fL (7.9-10.8); MONOCYTES # (AUTO) 0.7 10^3/uL (0.0-1.0); MONOCYTES % (AUTO) 8.3 %; NEUTROPHILS # (AUTO) 5.9 10^3/uL (1.5-6.6); NEUTROPHILS % (AUTO) 71.6 %; PLT - PLATELET COUNT 266 10^3/uL (130-450); RED BLOOD COUNT 3.66 10^6/uL (4.20-5.40); RED CELL DISTRIBUTION WIDTH 14.7 % (12.0-15.0); WHITE BLOOD COUNT 8.2 x10^3/uL (4.8-10.8)
[2018-07-04 13:01] LABS: ALBUMIN 3.5 g/dL (3.2-5.5); ALBUMIN/GLOBULIN RATIO 0.9 (1.0-2.2); CALCIUM 9.9 mg/dL (8.5-10.3); CREATININE 1.6 mg/dL (0.4-1.0); TOTAL PROTEIN 7.2 g/dL (6.7-8.2)
== END 2018-07-04 23:59 | disposition home or self-care (01) ==
LOC: LAB.WCP 09:40
PROVIDERS: ATTEND Physician Assistant
DX: N28.9 Disorder of kidney and ureter, unspecified (principal); I10 Essential (primary) hypertension
CPT/HCPCS: 36415; 80053; 85025

== ENCOUNTER 2018-07-21 10:11 | Outpatient (CLI) | payer MEDICARE, OTHER ==
[2018-07-21 13:45] LABS: CALCIUM 9.9 mg/dL (8.5-10.3); CREATININE 1.4 mg/dL (0.4-1.0)
== END 2018-07-21 10:12 | disposition home or self-care (01) ==
LOC: LAB.WCP 10:11
PROVIDERS: ATTEND Family Medicine
DX: N28.9 Disorder of kidney and ureter, unspecified (principal)
CPT/HCPCS: 36415; 80048

== ENCOUNTER 2018-08-21 11:12 | Outpatient (CLI) | payer MEDICARE, OTHER ==
[2018-08-21 19:09] LABS: HGB - HEMOGLOBIN 11.1 g/dL (12.0-16.0); MEAN CORPUSCULAR HEMOGLOBIN 29.1 pg (27.0-31.0); MEAN CORPUSCULAR HGB CONC 33.2 g/dL (32.0-36.0); MEAN CORPUSCULAR VOLUME 87.7 fL (81.0-99.0); MEAN PLATELET VOLUME 9.4 fL (7.9-10.8); RED BLOOD COUNT 3.8 10^6/uL (4.20-5.40); RED CELL DISTRIBUTION WIDTH 14.1 % (12.0-15.0); WHITE BLOOD COUNT 8.9 x10^3/uL (4.8-10.8)
[2018-08-21 19:37] LABS: CALCIUM 10.3 mg/dL (8.5-10.3); CREATININE 1.4 mg/dL (0.4-1.0)
[2018-08-21 19:41] LABS: CREATININE,URINE 140.6 mg/dL; PROTEIN/CREATININE RATIO,URINE 0.3 (<=0.2)
== END 2018-08-21 11:13 | disposition home or self-care (01) ==
LOC: LAB.WCP 11:12
PROVIDERS: ATTEND Internal Medicine Nephrology
DX: N05.9 Unspecified nephritic syndrome with unspecified morphologic changes (principal); D70.9 Neutropenia, unspecified; D63.1 Anemia in chronic kidney disease; R80.9 Proteinuria, unspecified
CPT/HCPCS: 36415; 80048; 82570; 84156; 85027

== ENCOUNTER 2018-09-18 08:00 | Outpatient (CLI) | payer MEDICARE, OTHER ==
[2018-09-18 19:19] LABS: BASOPHILS # (AUTO) 0.1 10^3/uL (0.0-0.1); BASOPHILS % (AUTO) 0.8 %; EOSINOPHILS # (AUTO) 0.2 10^3/uL (0.0-0.7); HGB - HEMOGLOBIN 11.2 g/dL (12.0-16.0); LYMPHOCYTES # (AUTO) 1.7 10^3/uL (1.5-3.5); LYMPHOCYTES % (AUTO) 21.2 %; MEAN CORPUSCULAR HEMOGLOBIN 28.7 pg (27.0-31.0); MEAN CORPUSCULAR HGB CONC 32.6 g/dL (32.0-36.0); MEAN CORPUSCULAR VOLUME 88.1 fL (81.0-99.0); MEAN PLATELET VOLUME 9.8 fL (7.9-10.8); MONOCYTES # (AUTO) 0.7 10^3/uL (0.0-1.0); MONOCYTES % (AUTO) 8.3 %; NEUTROPHILS # (AUTO) 5.4 10^3/uL (1.5-6.6); NEUTROPHILS % (AUTO) 66.7 %; PLT - PLATELET COUNT 316 10^3/uL (130-450); RED BLOOD COUNT 3.91 10^6/uL (4.20-5.40); WHITE BLOOD COUNT 8.2 x10^3/uL (4.8-10.8)
[2018-09-18 19:40] LABS: ALBUMIN 4.1 g/dL (3.2-5.5); ALBUMIN/GLOBULIN RATIO 1.2 (1.0-2.2); BILIRUBIN,TOTAL 0.7 mg/dL (0.2-1.0); CALCIUM 10.3 mg/dL (8.5-10.3); CREATININE 1.5 mg/dL (0.4-1.0); TOTAL PROTEIN 7.6 g/dL (6.7-8.2)
== END 2018-09-18 23:59 | disposition home or self-care (01) ==
LOC: LAB.WCP 08:00
PROVIDERS: ATTEND Nurse Practitioner
DX: R60.9 Edema, unspecified (principal); I10 Essential (primary) hypertension; N28.9 Disorder of kidney and ureter, unspecified
CPT/HCPCS: 36415; 80053; 83880; 85025

== ENCOUNTER 2018-09-21 11:16 | Outpatient (CLI) | payer MEDICARE, OTHER ==
[2018-09-21 20:55] LABS: ALBUMIN 4.1 g/dL (3.2-5.5); ALBUMIN/GLOBULIN RATIO 1.3 (1.0-2.2); BILIRUBIN,TOTAL 0.6 mg/dL (0.2-1.0); CALCIUM 10.1 mg/dL (8.5-10.3); CREATININE 1.4 mg/dL (0.4-1.0); TOTAL PROTEIN 7.3 g/dL (6.7-8.2)
== END 2018-09-21 11:17 | disposition home or self-care (01) ==
LOC: LAB.WCP 11:16
PROVIDERS: ATTEND Nurse Practitioner
DX: R60.9 Edema, unspecified (principal); I10 Essential (primary) hypertension
CPT/HCPCS: 36415; 80048; 80053

== ENCOUNTER 2018-09-28 08:00 | Outpatient (CLI) | payer MEDICARE, OTHER ==
[2018-09-28 13:22] LABS: ALBUMIN 3.9 g/dL (3.2-5.5); ALBUMIN/GLOBULIN RATIO 1.3 (1.0-2.2); BILIRUBIN,TOTAL 0.6 mg/dL (0.2-1.0); CALCIUM 9.9 mg/dL (8.5-10.3); CREATININE 1.4 mg/dL (0.4-1.0); TOTAL PROTEIN 6.8 g/dL (6.7-8.2)
== END 2018-09-28 23:59 | disposition home or self-care (01) ==
LOC: LAB.WCP 08:00
PROVIDERS: ATTEND Nurse Practitioner
DX: N28.9 Disorder of kidney and ureter, unspecified (principal); R60.9 Edema, unspecified
CPT/HCPCS: 36415; 80053

== ENCOUNTER 2018-10-15 13:37 | Outpatient (CLI) | payer MEDICARE, OTHER | END 2018-10-15 13:38 | disposition home or self-care (01) | LOC: DI 13:37 | PROVIDERS: ATTEND Internal Medicine Nephrology | DX: I50.20 Unspecified systolic (congestive) heart failure (principal) | CPT/HCPCS: 93306 ==

== ENCOUNTER 2018-11-08 08:11 | Outpatient (CLI) | payer MEDICARE, OTHER ==
[2018-11-08 12:46] LABS: BASOPHILS # (AUTO) 0.1 10^3/uL (0.0-0.1); EOSINOPHILS # (AUTO) 0.4 10^3/uL (0.0-0.7); HGB - HEMOGLOBIN 11.1 g/dL (12.0-16.0); LYMPHOCYTES # (AUTO) 1.5 10^3/uL (1.5-3.5); LYMPHOCYTES % (AUTO) 18.4 %; MEAN CORPUSCULAR HEMOGLOBIN 27.8 pg (27.0-31.0); MEAN CORPUSCULAR HGB CONC 32.7 g/dL (32.0-36.0); MEAN CORPUSCULAR VOLUME 85.1 fL (81.0-99.0); MEAN PLATELET VOLUME 9.7 fL (7.9-10.8); MONOCYTES # (AUTO) 0.7 10^3/uL (0.0-1.0); NEUTROPHILS # (AUTO) 5.4 10^3/uL (1.5-6.6); NEUTROPHILS % (AUTO) 66.6 %; PLT - PLATELET COUNT 236 10^3/uL (130-450); RED BLOOD COUNT 3.99 10^6/uL (4.20-5.40); RED CELL DISTRIBUTION WIDTH 13.8 % (12.0-15.0); WHITE BLOOD COUNT 8.2 x10^3/uL (4.8-10.8)
[2018-11-08 13:16] LABS: CREATININE 1.4 mg/dL (0.4-1.0); PHOSPHORUS 3.7 mg/dL (2.5-4.6)
[2018-11-08 13:20] LABS: CREATININE,URINE 119.8 mg/dL; PROTEIN/CREATININE RATIO,URINE 0.5 (<=0.2)
== END 2018-11-08 08:12 | disposition home or self-care (01) ==
LOC: LAB.WCP 08:11
PROVIDERS: ATTEND Internal Medicine Nephrology
DX: N05.9 Unspecified nephritic syndrome with unspecified morphologic changes (principal); I50.32 Chronic diastolic (congestive) heart failure; D70.9 Neutropenia, unspecified; D63.1 Anemia in chronic kidney disease; R80.9 Proteinuria, unspecified; E83.30 Disorder of phosphorus metabolism, unspecified; N25.81 Secondary hyperparathyroidism of renal origin
CPT/HCPCS: 36415; 80048; 82570; 83880; 83970; 84100; 84156; 85025

== ENCOUNTER 2019-02-10 09:08 | Emergency (ER) | payer MEDICARE, OTHER ==
[2019-02-10] MEDS ORDERED: HYDROmorphone 1 MG/ML CARPUJECT IVP STA (10:14)
[2019-02-10 10:22] LABS: BASOPHILS # (AUTO) 0.1 10^3/uL (0.0-0.1); BASOPHILS % (AUTO) 0.6 %; EOSINOPHILS # (AUTO) 0.1 10^3/uL (0.0-0.7); EOSINOPHILS % (AUTO) 1.3 %; HGB - HEMOGLOBIN 11.1 g/dL (12.0-16.0); LYMPHOCYTES % (AUTO) 11.2 %; MEAN CORPUSCULAR HEMOGLOBIN 27.9 pg (27.0-31.0); MEAN CORPUSCULAR HGB CONC 32.5 g/dL (32.0-36.0); MEAN CORPUSCULAR VOLUME 85.9 fL (81.0-99.0); MEAN PLATELET VOLUME 10.9 fL (7.9-10.8); MONOCYTES # (AUTO) 0.4 10^3/uL (0.0-1.0); MONOCYTES % (AUTO) 4.8 %; NEUTROPHILS # (AUTO) 7.3 10^3/uL (1.5-6.6); NEUTROPHILS % (AUTO) 81.8 %; PLT - PLATELET COUNT 256 10^3/uL (130-450); RED BLOOD COUNT 3.98 10^6/uL (4.20-5.40); RED CELL DISTRIBUTION WIDTH 14.7 % (12.0-15.0); WHITE BLOOD COUNT 8.9 x10^3/uL (4.8-10.8)
[2019-02-10 10:30] LABS: INR 1.3 (0.8-1.2)
[2019-02-10 10:32] LABS: ALBUMIN 4.4 g/dL (3.2-5.5); BILIRUBIN,TOTAL 0.7 mg/dL (0.2-1.0); CALCIUM 9.9 mg/dL (8.5-10.3); CREATININE 1.1 mg/dL (0.4-1.0); MAGNESIUM 2.1 mg/dL (1.7-2.8); TOTAL PROTEIN 8.1 g/dL (6.7-8.2)
[2019-02-10 10:33] LABS: ALBUMIN/GLOBULIN RATIO 1.2 (1.0-2.2)
[2019-02-10] MEDS ORDERED: IOVERSOL 320 100 ML VIAL IVP ONE ×2 (10:35→11:03)
[2019-02-10 10:37] LABS: PARTIAL THROMBOPLASTIN TIME 36.1 secs (24.9-33.3)
--- NOTE | 2019-02-10 11:37 | CT Report ---
Reason: back pain and dyspnea; HTN Procedure Date: 02/10/2019 Accession Number: [id number] / [id number] Procedure: CT - ANGIO CHEST W/WO CPT Code: FULL RESULT: EXAM: CTA CHEST EXAM DATE: 02/10/2019 11:02 AM. CLINICAL HISTORY: Back pain and dyspnea; HTN. COMPARISON: ABDOMEN/PELVIS W/ 08/05/2017 7:30 PM. TECHNIQUE: Prior to and following intravenous administration of OPTI 320 80ML, multiplanar 3D/MIP reconstruction of the thoracic aorta was performed. In accordance with CT protocol optimization, one or more of the following dose reduction techniques were utilized for this exam: automated exposure control, adjustment of mA and/or KV based on patient size, or use of iterative reconstructive technique. FINDINGS: Vascular Structures: The heart size is normal. There is moderate calcification in the left anterior descending and circumflex coronary arteries. There is mild contrast reflux into the IVC and hepatic veins. Pulmonary arteries are normal in size and enhancement without filling defects. The thoracic aorta is normal in size and there is mild elongation of the aortic arch. There is mild scattered calcification in the aortic arch and descending thoracic aorta. There is no intramural hematoma there is no dissection. There is mild calcification in the visualized upper abdominal aorta without abnormal dilation. The sinuses of Valsalva measure 2.7 cm. The sinotubular junction measures 2.3 cm. The proximal ascending thoracic aorta measures 2.5 cm. The distal ascending thoracic aorta measures 2.6 cm. The aortic arch measures 2.3 cm. The proximal descending thoracic aorta measures 2.2 cm. The distal descending thoracic aorta measures 2.1 cm. Lungs/Pleura: Trace bilateral pleural fluid. No pneumothorax. Minimal dependent reticular and ground glass atelectasis bilaterally. There is some mild scattered intralobular septal thickening in nondependent portions of the mid to lower lungs bilaterally suggesting minimal fibrosis. No emphysema. No lobar consolidation. No discrete nodule. There is mild diffuse bronchial wall thickening particularly in the lower lobes without bronchiectasis or mucus plugging. Mediastinum: Lower thyroid gland and esophagus are unremarkable. There is a mildly enlarged 1.6 cm short axis diameter right subcarinal lymph node. No other enlarged due to spinal or hilar lymph nodes are identified. Upper Abdomen: Unremarkable. Other: Body wall is unremarkable. Bilateral pedicle screws and longitudinal stabilization rods from the midthoracic spine through the visualized upper lumbar spine. There are also incompletely visualized pedicle screws and longitudinal stabilization rods spanning the cervicothoracic junction along with a disk space implant at C7-T1. IMPRESSION: 1. No thoracic aortic aneurysm or dissection. There is mild atherosclerotic calcification. 2. There is moderate left anterior descending and circumflex coronary artery calcification. There is mild contrast reflux into the IVC and hepatic veins which could reflect decreased cardiac output. The heart size is normal. 3. No pulmonary balloon. 4. Minimal bilateral lung fibrosis. Minimal bibasilar atelectasis. Tiny bilateral pleural effusions. 5. Mildly enlarged right subcarinal lymph node of uncertain significance. No other lymphadenopathy is identified. RADIA
[2019-02-10] MEDS ORDERED: DEXAMETHASONE 10 MG/ML VIAL IVP STA (12:15)
[2019-02-10] MEDS ORDERED: KETOROLAC 15 MG/ML VIAL IVP STA (12:15)
--- NOTE | 2019-02-10 12:16 | ED Physician Documentation ---
PD HPI BACK PAIN - Stated complaint Stated Complaint: BACK PX,NAUSEA,DIARRHEA - Chief complaint Chief Complaint: Cardiac - History obtained from History obtained from: Patient, Family - History of Present Illness Timing - onset: How many days ago (few) Timing - duration: Days (few) Timing - details: Gradual onset, Still present Location: Upper Quality: Pain, Aching Associated symptoms: No: Fever, Weakness, Numbness Worsened by: Movement. No: Lifting Contributing factors: Lifting (she did some exercises earlier in the week, just some light lifting of weight and shoulder shrugs. Noted some pain in thoracic area later and next day, and has continued undulating pain that area. No rash nor redness. Noted pain radiating to under left armpit. No weakness of arms.) Similar symptoms before: Has not had sx before Review of Systems Constitutional: denies: Fever, Chills, Myalgias Nose: denies: Rhinorrhea / runny nose, Congestion Throat: denies: Sore throat Cardiac: denies: Chest pain / pressure, Palpitations Respiratory: denies: Dyspnea, Cough GI: denies: Abdominal Pain, Nausea, Vomiting, Diarrhea Skin: denies: Rash, Lesions Musculoskeletal: reports: Back pain. 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 : Incontinence, Nocturia HEENT: Chronic vision loss Psych: None Musculoskeletal: Osteoarthritis, Chronic back pain Derm: None - Past Surgical History Past Surgical History: Yes General: Colonoscopy, EGD Ortho: Spine surgery /VOLLEYBALL ASSISTANT COACH: Hysterectomy, Oophrectomy - Present Medications Home Medications: Ambulatory Orders Medication Instructions Recorded Confirmed Gabapentin 600 mg PO 0800,1200,1700,2100 11/13/13 08/04/17 Levothyroxine [Synthroid] 50 mcg PO QDAC 11/13/13 08/04/17 Lovastatin 20 mg PO QPM 11/13/13 08/04/17 Nabumetone 750 mg PO 1700 11/13/13 08/04/17 Losartan Potassium 50 mg PO DAILY 08/04/17 08/04/17 Methocarbamol 500 mg PO 1200,2100 08/04/17 08/04/17 Multivitamin [Theragran] 1 tab PO DAILY 08/04/17 08/04/17 Multivitamin [Theragran] 1 tab PO DAILY 08/04/17 08/04/17 Acetaminophen [Tylenol] 650 mg PO Q4HR PRN #30 tablet 08/07/17 Apixaban [Eliquis] 5 mg PO BID #60 tablet 08/07/17 HYDROcod/ACETAM 5/325 [[place] 5/325] 1 tab PO Q4HR PRN #20 tablet 08/07/17 Hydrocodone/Acetaminophen [[place] 1 each PO Q6H PRN #20 tablet 02/10/19 5-325 Tablet] dexAMETHasone [Decadron] 4 mg PO DAILY #5 tablet 02/10/19 - Allergies Allergies/Adverse Reactions: Allergies Allergy/AdvReac Type Severity Reaction Status Date / Time Sulfa (Sulfonamide Allergy Intermediate Hives Verified 02/10/19 09:21 Antibiotics) clarithromycin [From Biaxin] Allergy Dizziness Verified 02/10/19 09:21 - Social History Does the pt smoke?: No Smoking Status: Never smoker Does the pt drink ETOH?: Yes Does the pt have substance abuse?: No - Immunizations Immunizations are current?: Yes - POLST Patient has POLST: No POLST Status: DNR PD ED PE NORMAL - Vitals Vital signs reviewed: Yes - General General: Alert and oriented X 3, Well developed/nourished - HEENT HEENT: Pharynx benign - Neck Neck: Supple, no meningeal sign, No adenopathy - Cardiac Cardiac: RRR, No murmur - Respiratory Respiratory: Clear bilaterally - Abdomen Abdomen: Soft, Non tender - Derm Derm: Normal color, Warm and dry, No rash, Other (some tenderness at left lateral thoracic area with prior scarring from surgery noted. ) - Extremities Extremities: No tenderness to palpate, Normal ROM s pain, No edema, No calf tenderness / cord - Neuro Neuro: Alert and oriented X 3, No motor deficit, No sensory deficit, Normal speech Results - Vitals Vitals: Vital Signs - 24 hr 02/10/19 02/10/19 02/10/19 09:15 09:36 10:00 Temperature 36.8 C Heart Rate 76 71 73 Respiratory 16 16 20 Rate Blood Pressure 213/92 H 199/93 H 208/107 H O2 Saturation 98 97 98 02/10/19 02/10/19 02/10/19 10:30 11:00 11:30 Temperature Heart Rate 66 63 62 Respiratory 11 L 12 13 Rate Blood Pressure 163/81 H 166/72 H 161/74 H O2 Saturation 95 93 94 02/10/19 02/10/19 12:00 12:30 Temperature Heart Rate 62 65 Respiratory 10 L 12 Rate Blood Pressure 176/80 H 177/93 H O2 Saturation 95 96 Oxygen O2 Source [With Activity] Room air O2 Source Room air - Labs Labs: Laboratory Tests 02/10/19 02/10/19 02/10/19 09:41 09:41 09:41 WBC 8.9 RBC 3.98 L Hgb 11.1 L Hct 34.2 L MCV 85.9 MCH 27.9 MCHC 32.5 RDW 14.7 Plt Count 256 MPV 10.9 H Neut # (Auto) 7.3 H Lymph # (Auto) 1.0 L [place] # (Auto) 0.4 Eos # (Auto) 0.1 Baso # (Auto) 0.1 Absolute Nucleated RBC 0.00 Nucleated RBC % 0.0 PT 14.0 H INR 1.3 H APTT 36.1 H Sodium 137 Potassium 4.1 Chloride 101 Carbon Dioxide 26 Anion Gap 10.0 BUN 29 H Creatinine 1.1 H Estimated GFR (MDRD) 47 L Glucose 119 H Calcium 9.9 Magnesium 2.1 Total Bilirubin 0.7 AST 30 ALT 21 Alkaline Phosphatase 89 Troponin I High Sens Total Protein 8.1 Albumin 4.4 Globulin 3.7 Albumin/Globulin Ratio 1.2 Lipase 30 02/10/19 09:41 WBC RBC Hgb Hct MCV MCH MCHC RDW Plt Count MPV Neut # (Auto) Lymph # (Auto) [place] # (Auto) Eos # (Auto) Baso # (Auto) Absolute Nucleated RBC Nucleated RBC % PT INR APTT Sodium Potassium Chloride Carbon Dioxide Anion Gap BUN Creatinine Estimated GFR (MDRD) Glucose Calcium Magnesium Total Bilirubin AST ALT Alkaline Phosphatase Troponin I High Sens 7.8 Total Protein Albumin Globulin Albumin/Globulin Ratio Lipase - Rads (name of study) aortic CT-A Radiology: Prelim report reviewed (no vascular process; no new fractures), See rad report PD MEDICAL DECISION MAKING - ED course Complexity details: reviewed results (no acute process on testing. Presume musculoskeletal or could still be shingles in process (no rash yet).), considered differential (can be muscular. Has had prior thoracic surgery. Has HTN and back into axillary pain, and consider vascular such as aortic dissection. ), d/w patient Departure - Departure Disposition: 01 Home, Self Care Clinical Impression: Acute thoracic back pain Qualifiers: Back pain laterality: left Qualified Code(s): M54.6 - Pain in thoracic spine Condition: Stable Record reviewed to determine appropriate education?: Yes Instructions: ED Neck Back Pain General Follow-Up: Michelle Melara PA-C [Primary Care Provider] - Prescriptions: dexAMETHasone [Decadron] 4 mg PO DAILY #5 tablet Hydrocodone/Acetaminophen [[place] 5-325 Tablet] 1 each PO Q6H PRN #20 tablet PRN Reason: Pain Comments: Your CT scan and labs did not show an acute process such as vascular problems or bleeding. I presume this is musculoskeletal pain we can treated with some Decadron steroid anti-inflammatory and Tylenol 4 times a day. To that add hydrocodone if needed for pain. Recheck if not improved over the next few days. Also recheck or follow-up if you develop other symptoms such as rash or fevers etc. Discharge Date/Time: 02/10/19 12:43
[2019-02-10 12:35] VITALS: BP 177/93
== END 2019-02-10 12:43 | disposition home or self-care (01) ==
LOC: ED 09:08
DX: M54.6 Pain in thoracic spine (principal); I10 Essential (primary) hypertension; Z86.718 Personal history of other venous thrombosis and embolism; Z86.711 Personal history of pulmonary embolism; Z79.01 Long term (current) use of anticoagulants; Z66 Do not resuscitate
CPT/HCPCS: 36415; 71275; 80053; 83690; 83735; 84484; 85025; 85610; 85730; 93005; 96374; 96375; 99284; J1170; Q9967

== ENCOUNTER 2019-03-04 05:35 | Outpatient (CLI) | payer MEDICARE, OTHER | END 2019-03-04 05:36 | disposition critical access hospital (66) | LOC: EMS 05:35 | PROVIDERS: ATTEND Surgery | DX: R07.9 Chest pain, unspecified (principal); R06.00 Dyspnea, unspecified | CPT/HCPCS: A0425; A0427 ==

== ENCOUNTER 2019-03-04 05:51 | Emergency (ER) | payer MEDICARE, OTHER ==
[2019-03-04 06:03] LABS: BASOPHILS % (AUTO) 0.5 %; EOSINOPHILS # (AUTO) 0.3 10^3/uL (0.0-0.7); EOSINOPHILS % (AUTO) 3.7 %; HGB - HEMOGLOBIN 9.6 g/dL (12.0-16.0); LYMPHOCYTES # (AUTO) 1.1 10^3/uL (1.5-3.5); LYMPHOCYTES % (AUTO) 14.9 %; MEAN CORPUSCULAR HEMOGLOBIN 28.6 pg (27.0-31.0); MEAN CORPUSCULAR HGB CONC 32.8 g/dL (32.0-36.0); MEAN CORPUSCULAR VOLUME 87.2 fL (81.0-99.0); MEAN PLATELET VOLUME 9.9 fL (7.9-10.8); MONOCYTES # (AUTO) 0.7 10^3/uL (0.0-1.0); MONOCYTES % (AUTO) 9.3 %; NEUTROPHILS # (AUTO) 5.4 10^3/uL (1.5-6.6); NEUTROPHILS % (AUTO) 71.3 %; PLT - PLATELET COUNT 230 10^3/uL (130-450); RED BLOOD COUNT 3.36 10^6/uL (4.20-5.40); RED CELL DISTRIBUTION WIDTH 15.9 % (12.0-15.0); WHITE BLOOD COUNT 7.6 x10^3/uL (4.8-10.8)
--- NOTE | 2019-03-04 06:09 | ED Physician Documentation ---
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: None : Incontinence, Nocturia HEENT: Chronic vision loss Psych: None Musculoskeletal: Osteoarthritis, Chronic back pain Derm: None - Past Surgical History Past Surgical History: Yes General: Colonoscopy, EGD Ortho: Spine surgery /PRACTICE NURSE: Hysterectomy, Oophrectomy - Present Medications Home Medications: Ambulatory Orders Medication Instructions Recorded Confirmed Gabapentin 600 mg PO 0800,1200,1700,2100 11/13/13 08/04/17 Levothyroxine [Synthroid] 50 mcg PO QDAC 11/13/13 08/04/17 Lovastatin 20 mg PO QPM 11/13/13 08/04/17 Nabumetone 750 mg PO 1700 11/13/13 08/04/17 Losartan Potassium 50 mg PO DAILY 08/04/17 08/04/17 Methocarbamol 500 mg PO 1200,2100 08/04/17 08/04/17 Multivitamin [Theragran] 1 tab PO DAILY 08/04/17 08/04/17 Multivitamin [Theragran] 1 tab PO DAILY 08/04/17 08/04/17 Acetaminophen [Tylenol] 650 mg PO Q4HR PRN #30 tablet 08/07/17 Apixaban [Eliquis] 5 mg PO BID #60 tablet 08/07/17 HYDROcod/ACETAM 5/325 [[place] 5/325] 1 tab PO Q4HR PRN #20 tablet 08/07/17 Hydrocodone/Acetaminophen [[place] 1 each PO Q6H PRN #20 tablet 02/10/19 5-325 Tablet] dexAMETHasone [Decadron] 4 mg PO DAILY #5 tablet 02/10/19 Oxycodone HCl 2.5 mg PO Q6H PRN #7 tablet 03/04/19 - Allergies Allergies/Adverse Reactions: Allergies Allergy/AdvReac Type Severity Reaction Status Date / Time Sulfa (Sulfonamide Allergy Intermediate Hives Verified 02/10/19 09:21 Antibiotics) clarithromycin [From Biaxin] Allergy Dizziness Verified 02/10/19 09:21 - Social History Does the pt smoke?: No Smoking Status: Never smoker Does the pt drink ETOH?: Yes Does the pt have substance abuse?: No - Immunizations Immunizations are current?: Yes - POLST Patient has POLST: No POLST Status: DNR Departure - Departure Disposition: 01 Home, Self Care Clinical Impression: Chest wall pain Condition: Good Instructions: ED Chest Pain Costochondritis Follow-Up: Michelle Melara PA-C [Primary Care Provider] - Within 1 week Prescriptions: Oxycodone HCl 2.5 mg PO Q6H PRN #7 tablet PRN Reason: pain Comments: The steroid will help decrease the inflammation in the chest wall. Return if you worsen. Use the medication as needed for pain. Do not drink alcohol or drive while on narcotic pain medicine. Note that many narcotic pain relievers also contain tylenol/acetaminophen. Please ensure that your total dose of acetaminophen from all sources does not exceed 3 grams (3000mg) per day. You may constipated on this medication, take a stool softener such as "Colace" twice a day while you are on it. Also recommend a gbny-puf-piziwjw laxative such as senna or MiraLAX any day that you do not have a bowel movement. If you received narcotic pain medication in the emergency department, do not drive or operate machinery for the next 24 hours. <Júnior Treadwell - Last Filed: 03/04/19 07:43> PD HPI CHEST PAIN - History obtained from History obtained from: Patient, Family - History of Present Illness Timing - onset: How many days ago (5-6) Timing - onset during: Rest Timing - details: Gradual onset Pain level max: 5 Pain level now: 3 Quality: Other (sharp L sided chest wall pain) Location: Other (L chest wall) Radiation: No: Jaw, Neck, Back, Abdominal, Left upper extremity, Right upper extremity Improved by: Rest Worsened by: Movement, Palpation Associated symptoms: No: Shortness of air, Diaphoresis, Nausea, Vomiting, Feeling faint / dizzy, General Weakness, Palpitations, Cough Similar symptoms before: Has not had sx before Recently seen: Not recently seen Review of Systems Constitutional: denies: Fever, Chills Cardiac: denies: Chest pain / pressure Respiratory: denies: Cough GI: denies: Vomiting, Diarrhea Skin: denies: Rash Musculoskeletal: denies: Neck pain, Back pain Neurologic: denies: Headache PD PAST MEDICAL HISTORY - Past Medical History Past Medical History: Yes Cardiovascular: Hypertension, High cholesterol, Deep vein thrombosis, Pulmonary embolism Respiratory: None Neuro: None Endocrine/Autoimmune: HyPOthyroidism GI: Other PRACTICE NURSE: None : Incontinence, Nocturia HEENT: Chronic vision loss Psych: None Musculoskeletal: Osteoarthritis, Chronic back pain - Past Surgical History Past Surgical History: Yes General: Colonoscopy, EGD Ortho: Spine surgery /PRACTICE NURSE: Hysterectomy, Oophrectomy - Living Situation Living Situation: reports: With family Living Arrangement: reports: At home - Social History Does the pt smoke?: No Smoking Status: Never smoker Does the pt drink ETOH?: Yes Does the pt have substance abuse?: No - Immunizations Immunizations are current?: Yes - POLST Patient has POLST: No POLST Status: DNR PD ED PE NORMAL - Vitals Vital signs reviewed: Yes - General General: Alert and oriented X 3, No acute distress, Well developed/nourished - HEENT HEENT: Moist mucous membranes - Neck Neck: Supple, no meningeal sign - Cardiac Cardiac: RRR, Strong equal pulses - Respiratory Respiratory: No respiratory distress, Clear bilaterally - Abdomen Abdomen: Soft, Non tender, Non distended - Derm Derm: Warm and dry - Extremities Extremities: No edema, No calf tenderness / cord - Neuro Neuro: Alert and oriented X 3 - Psych Psych: Normal mood, Normal affect - Free text exam Free text exam: Tender to palpation on the left anterior chest wall. Reproduces her pain. No ecchymosis. No crepitus. Results - Vitals Vitals: Vital Signs - 24 hr 03/04/19 03/04/19 03/04/19 05:51 05:52 06:01 Temperature 36.4 C L Heart Rate 74 71 Respiratory 20 13 Rate Blood Pressure 142/93 H 166/79 H Blood Pressure 166/79 H [Left] Blood Pressure 142/93 H [Right] O2 Saturation 97 100 03/04/19 07:15 Temperature Heart Rate 70 Respiratory 13 Rate Blood Pressure 176/89 H Blood Pressure [Left] Blood Pressure [Right] O2 Saturation 96 Oxygen O2 Source [With Activity] Room air O2 Source Room air - EKG (time done) 0551 Rate: Rate (enter#) (82) Rhythm: NSR [place]: Normal Intervals: Normal SD QRS: Normal Ischemia: Normal ST segments - Labs Labs: Laboratory Tests 03/04/19 03/04/19 03/04/19 05:55 05:55 05:55 WBC 7.6 RBC 3.36 L Hgb 9.6 L Hct 29.3 L MCV 87.2 MCH 28.6 MCHC 32.8 RDW 15.9 H Plt Count 230 MPV 9.9 Neut # (Auto) 5.4 Lymph # (Auto) 1.1 L [place] # (Auto) 0.7 Eos # (Auto) 0.3 Baso # (Auto) 0.0 Absolute Nucleated RBC 0.00 Nucleated RBC % 0.0 Sodium 138 Potassium 4.3 Chloride 101 Carbon Dioxide 27 Anion Gap 10.0 BUN 30 H Creatinine 1.1 H Estimated GFR (MDRD) 47 L Glucose 119 H Calcium 9.4 Total Bilirubin 0.7 AST 22 ALT 25 Alkaline Phosphatase 91 Troponin I High Sens 8.7 Total Protein 6.7 Albumin 3.6 Globulin 3.1 Albumin/Globulin Ratio 1.2 Lipase 22 - Rads (name of study) cxr Radiology: Prelim report reviewed, EMP read contemporaneously, See rad report (COPD, borderline to mild cardiomegaly with abnormal findings suggesting mild pulmonary edema or COPD exacerbation versus pneumonia, predominantly in the right middle lobe; recommend continued chest imaging follow-up. ) PD MEDICAL DECISION MAKING - ED course Complexity details: reviewed results, re-evaluated patient, considered differential (No ST elevation [place], no aortic dissection, no PE, no tension pneumothorax, no aortic aneurysm), d/w patient ED course: 83-year-old female presents to the emergency department stating that she has left-sided chest wall pain for the past 5 to 6 days. Negative high-sensitivity troponin. No acute findings on x-ray or laboratory testing. Given dexamethasone for inflammation. Does not appear consistent with a pulmonary embolus. No evidence of acute coronary syndrome. She is already anticoagulated on Eliquis. No hypoxia. No tachycardia. Patient counseled regarding signs and symptoms for which I believe and urgent re-evaluation would be necessary. Patient with good understanding of and agreement to plan and is comfortable going home at this time This document was made in part using voice recognition software. While efforts are made to proofread this document, sound alike and grammatical errors may occur. Symptoms are not consistent with pneumonia or x-ray findings.
[2019-03-04 06:17] LABS: ALBUMIN 3.6 g/dL (3.2-5.5); ALBUMIN/GLOBULIN RATIO 1.2 (1.0-2.2); BILIRUBIN,TOTAL 0.7 mg/dL (0.2-1.0); CALCIUM 9.4 mg/dL (8.5-10.3); CREATININE 1.1 mg/dL (0.4-1.0); TOTAL PROTEIN 6.7 g/dL (6.7-8.2)
[2019-03-04] MEDS ORDERED: DEXAMETHASONE 10 MG/ML VIAL IVP STA (07:29)
[2019-03-04] MEDS ORDERED: oxyCODONE 5 MG TABLET PO STA (07:30)
--- NOTE | 2019-03-04 07:41 | XRAY Report ---
Reason: chest pain Procedure Date: 03/04/2019 Accession Number: [id number] / [id number] Procedure: XR - Chest 2 View X-Ray CPT Code: 20150 FULL RESULT: EXAM: CHEST RADIOGRAPHY EXAM DATE: 03/04/2019 06:42 AM. CLINICAL HISTORY: Chest pain. COMPARISON: None. TECHNIQUE: 2 views. FINDINGS: Lungs/Pleura: Moderate to severe emphysematous lungs with mild and patchy pulmonary opacities in the bilateral posterior lung base and in the lower part of the right middle lobe, greater in the right middle lobe visualized. No pleural effusion. No pneumothorax.. Mediastinum: There is borderline to mild cardiomegaly. Other: Status post spinal fusion in the mid cervical spine to the upper thoracic spine and from the upper thoracic spine, approximately level T6 to the sacrum visualized, unremarkable. IMPRESSION: COPD, borderline to mild cardiomegaly with abnormal findings suggesting mild pulmonary edema or COPD exacerbation versus pneumonia, predominantly in the right middle lobe; recommend continued chest imaging follow-up. RADIA
[2019-03-04 07:45] VITALS: BP 185/95
== END 2019-03-04 08:00 | disposition home or self-care (01) ==
LOC: EDUNIT# → EDBD → ED 05:51
DX: R07.89 Other chest pain (principal); I10 Essential (primary) hypertension; J44.9 Chronic obstructive pulmonary disease, unspecified; Z86.711 Personal history of pulmonary embolism; Z86.718 Personal history of other venous thrombosis and embolism; Z79.01 Long term (current) use of anticoagulants; Z66 Do not resuscitate
CPT/HCPCS: 36415; 71046; 80053; 83690; 84484; 85025; 93005; 96374; 99284; A9270

== ENCOUNTER 2019-03-12 08:00 | Outpatient (CLI) | payer MEDICARE, OTHER | END 2019-03-12 23:59 | disposition home or self-care (01) | LOC: LAB.WCP 08:00 | PROVIDERS: ATTEND Family Medicine | DX: R19.7 Diarrhea, unspecified (principal) | CPT/HCPCS: 81599; 83630; 87045; 87046; 87329; 87493 ==

== ENCOUNTER 2019-03-19 13:04 | Outpatient (CLI) | payer MEDICARE, OTHER ==
--- NOTE | 2019-03-19 16:12 | Mammography Report ---
Reason: LT BREAST PAIN Procedure Date: 03/19/2019 Accession Number: [id number] / [id number] Procedure: [facility] - Diagnostic Dig Bilat CPT Code: FULL RESULT: EXAM: Diagnostic Dig Bilat DATE: 03/19/2019 1:51 PM CLINICAL HISTORY: Recent nonlocalized left breast pain now resolved. No personal history of breast cancer. Family history breast cancer in 2 sisters in their 80s. TECHNIQUE: (B) - Bilateral CC and MLO views were obtained. COMPARISON: 10/04/2015 through 09/25/2014 PARENCHYMAL PATTERN: (D) - The breasts demonstrate heterogeneously dense fibroglandular parenchyma bilaterally. FINDINGS: Bilateral breasts: There are no suspicious masses, calcifications, or areas of distortion. No mammographic finding in the left breast to explain recent nonlocalized pain now resolved. IMPRESSION: Negative examination. BI-RADS category 1. RECOMMENDATION: (ANNUAL) - Recommend routine annual screening mammography. Clinical follow-up is recommended for recent symptoms of pain. BI-RADS CATEGORY: (1) - Negative. STANDARD QUALIFYING STATEMENTS: 1. This examination was not reviewed with the aid of Computer-Aided Detection (CAD). 2. A negative or benign imaging report should not preclude biopsy if clinically suspicious findings are present. 3. Dense breasts may obscure an underlying neoplasm. 4. This examination was reviewed without the aid of 3D breast imaging (tomosynthesis).
== END 2019-03-19 13:05 | disposition home or self-care (01) ==
LOC: DI 13:04
PROVIDERS: ATTEND Family Medicine
DX: N64.4 Mastodynia (principal); Z80.3 Family history of malignant neoplasm of breast
CPT/HCPCS: 77066

== ENCOUNTER 2019-07-13 08:00 | Outpatient (CLI) | payer MEDICARE, OTHER ==
[2019-07-13 12:46] LABS: BASOPHILS # (AUTO) 0.1 10^3/uL (0.0-0.1); BASOPHILS % (AUTO) 0.6 %; EOSINOPHILS # (AUTO) 0.5 10^3/uL (0.0-0.7); EOSINOPHILS % (AUTO) 5.4 %; HGB - HEMOGLOBIN 10.1 g/dL (12.0-16.0); LYMPHOCYTES # (AUTO) 1.6 10^3/uL (1.5-3.5); LYMPHOCYTES % (AUTO) 19.6 %; MEAN CORPUSCULAR HEMOGLOBIN 27.7 pg (27.0-31.0); MEAN CORPUSCULAR HGB CONC 30.8 g/dL (32.0-36.0); MEAN CORPUSCULAR VOLUME 90.1 fL (81.0-99.0); MEAN PLATELET VOLUME 10.9 fL (7.9-10.8); MONOCYTES # (AUTO) 0.6 10^3/uL (0.0-1.0); MONOCYTES % (AUTO) 7.7 %; NEUTROPHILS # (AUTO) 5.5 10^3/uL (1.5-6.6); NEUTROPHILS % (AUTO) 66.5 %; PLT - PLATELET COUNT 262 10^3/uL (130-450); RED BLOOD COUNT 3.64 10^6/uL (4.20-5.40); RED CELL DISTRIBUTION WIDTH 14.1 % (12.0-15.0); WHITE BLOOD COUNT 8.3 x10^3/uL (4.8-10.8)
[2019-07-13 12:59] LABS: ALBUMIN/GLOBULIN RATIO 1.2 (1.0-2.2); ALKALINE PHOSPHATASE 70 IU/L (42-121); ALT ALANINE AMINOTRANSFERASE 20 IU/L (10-60); AST ASPARTATE AMINOTRANSFERASE 26 IU/L (10-42); BILIRUBIN,TOTAL 0.8 mg/dL (0.2-1.0); BUN - BLOOD UREA NITROGEN 41 mg/dL (6-20); CARBON DIOXIDE - CO2 28 mmol/L (21-32); CHLORIDE 96 mmol/L (101-111); CHOL/HDL RATIO 1.8 (<4.4); CHOLESTEROL 186 mg/dL; CREATININE 1.5 mg/dL (0.4-1.0); GFR - MDRD 33 (>89); GLUCOSE 100 mg/dL (70-100); HDL CHOLESTEROL 101 mg/dL; LDL CHOLESTEROL,CALCULATED 69 mg/dL; LDL/HDL RATIO 0.7 (<4.4); SODIUM 136 mmol/L (135-145); TOTAL PROTEIN 7.4 g/dL (6.7-8.2); VLDL CHOLESTEROL 16 mg/dL
== END 2019-07-13 23:59 | disposition home or self-care (01) ==
LOC: LAB.WCP 08:00
PROVIDERS: ATTEND Family Medicine
DX: I11.0 Hypertensive heart disease with heart failure (principal); E03.9 Hypothyroidism, unspecified; E78.5 Hyperlipidemia, unspecified; N05.9 Unspecified nephritic syndrome with unspecified morphologic changes; I50.32 Chronic diastolic (congestive) heart failure; D50.9 Iron deficiency anemia, unspecified
CPT/HCPCS: 36415; 80053; 80061; 83721; 83880; 84443; 85025

== ENCOUNTER 2019-12-19 13:00 | Outpatient (CLI) | payer MEDICARE, OTHER | END 2019-12-19 23:59 | disposition home or self-care (01) | LOC: LAB.WCP 13:00 | PROVIDERS: ATTEND Family Medicine | DX: Z03.818 Encounter for observation for suspected exposure to other biological agents ruled out (principal) | CPT/HCPCS: 81599 ==

== ENCOUNTER 2020-03-21 02:38 | Outpatient (CLI) | payer MEDICARE, OTHER | END 2020-03-21 02:39 | disposition critical access hospital (66) | LOC: EMS 02:38 | PROVIDERS: ATTEND Surgery | DX: R06.02 Shortness of breath (principal) | CPT/HCPCS: A0425; A0427 ==

== ENCOUNTER 2020-03-21 02:50 | Emergency (ER) | payer MEDICARE, OTHER ==
--- NOTE | 2020-03-21 02:59 | ED Physician Documentation ---
History of Present Illness - Stated complaint Stated Complaint: SOA, COPD - Chief complaint Chief Complaint: Resp - History obtained from History obtained from: Patient - Additonal information Additional information: The patient is an 84-year-old female with a history of COPD and congestive heart failure also with a history of pulmonary embolism and DVT on Eliquis 2.5 mg p.o. twice daily also with a history of atrial fibrillation presents with shortness of breath via ambulance she was given IV call and transferred to the emergency department. Patient reports severe shortness of breath. Denies any fevers. Review of Systems Constitutional: reports: Reviewed and negative Eyes: reports: Reviewed and negative Ears: reports: Reviewed and negative Nose: reports: Reviewed and negative Throat: reports: Reviewed and negative Cardiac: reports: Reviewed and negative Respiratory: reports: Dyspnea GI: reports: Reviewed and negative : reports: Reviewed and negative Skin: reports: Reviewed and negative Musculoskeletal: reports: Reviewed and negative Neurologic: reports: Reviewed and negative Psychiatric: reports: Reviewed and negative Endocrine: reports: Reviewed and negative Immunocompromised: reports: Reviewed and negative PD PAST MEDICAL HISTORY - Past Medical History Cardiovascular: Hypertension, High cholesterol, Deep vein thrombosis, Pulmonary embolism Respiratory: None Neuro: None Endocrine/Autoimmune: HyPOthyroidism GI: Other [employer]: None : Incontinence, Nocturia HEENT: Chronic vision loss Psych: None Musculoskeletal: Osteoarthritis, Chronic back pain Derm: None - Past Surgical History Past Surgical History: Yes General: Colonoscopy, EGD Ortho: Spine surgery /[employer]ER: Hysterectomy, Oophrectomy - Present Medications Home Medications: Ambulatory Orders Medication Instructions Recorded Confirmed Gabapentin 600 mg PO 0800,1200,1700,2100 11/13/13 03/21/20 Levothyroxine [Synthroid] 50 mcg PO QDAC 11/13/13 03/21/20 Lovastatin 20 mg PO QPM 11/13/13 03/21/20 Nabumetone 750 mg PO 1700 11/13/13 03/21/20 Losartan Potassium 50 mg PO DAILY 08/04/17 03/21/20 Multivitamin [Theragran] 1 tab PO DAILY 08/04/17 03/21/20 methocarbamoL [Methocarbamol] 500 mg PO 1200,2100 08/04/17 03/21/20 Acetaminophen [Tylenol] 650 mg PO Q4HR PRN #30 tablet 08/07/17 03/21/20 HYDROcod/ACETAM 5/325 [[place] 5/325] 1 tab PO Q4HR PRN #20 tablet 08/07/17 03/21/20 Hydrocodone/Acetaminophen [[place] 1 each PO Q6H PRN #20 tablet 02/10/19 03/21/20 5-325 Tablet] dexAMETHasone [Decadron] 4 mg PO DAILY #5 tablet 02/10/19 03/21/20 Oxycodone HCl 2.5 mg PO Q6H PRN #7 tablet 03/04/19 03/21/20 Apixaban [Eliquis] 2.5 mg PO BID 03/21/20 03/21/20 Calcium Carbonate/Vitamin D3 1 tab PO DAILY 03/21/20 03/21/20 [Calcium 600-Vit D3 800 [place]] Furosemide 10 mg PO DAILY 03/21/20 03/21/20 Rosuvastatin Calcium 5 mg PO DAILY 03/21/20 03/21/20 - Allergies Allergies/Adverse Reactions: Allergies Allergy/AdvReac Type Severity Reaction Status Date / Time Sulfa (Sulfonamide Allergy Intermediate Hives Verified 03/21/20 03:05 Antibiotics) clarithromycin [From Biaxin] Allergy Dizziness Verified 03/21/20 03:05 morphine AdvReac Hallucinati Verified 03/21/20 04:46 ons - Social History Does the pt smoke?: No Smoking Status: Never smoker Does the pt drink ETOH?: Yes Does the pt have substance abuse?: No - Immunizations Immunizations are current?: Yes - POLST Patient has POLST: No POLST Status: DNR PD ED PE NORMAL - Vitals Vital signs reviewed: Yes - General General: Other (84-year-old female with obvious tachypnea and difficulty breathing with no hypoxia trachea midline but difficulty breathing.) - HEENT HEENT: Atraumatic, PERRL, Moist mucous membranes - Neck Neck: Supple, no meningeal sign, Other (Positive for JVD bilaterally trachea midline) - Cardiac Cardiac: RRR, No murmur - Respiratory Respiratory: Other (Trachea midline breath sounds are present bilaterally there is diffuse adventitious sounds bilaterally to include wheezing rhonchi crackles and rhales) - Abdomen Abdomen: Normal bowel sounds, Soft, Non tender, Non distended, No organomegaly, Other (No midline abdominal pulsatile mass) - Female Female : Deferred - Rectal Rectal: Deferred - Back Back: No CVA TTP, No spinal TTP - Derm Derm: Normal color, Warm and dry, No rash - Extremities Extremities: No deformity, Normal ROM s pain, No edema, No calf tenderness / cord - Neuro Neuro: Alert and oriented X 3, strip deburrer 2-12 intact, No motor deficit, No sensory deficit, Normal speech - Psych Psych: Normal mood, Normal affect Results - Vitals Vitals: Vital Signs - 24 hr 03/21/20 03/21/20 03/21/20 03:02 03:06 03:18 Temperature 36.0 C L Heart Rate 100 145 H 128 H Respiratory 36 H 30 H 25 H Rate Blood Pressure 155/79 H O2 Saturation 100 100 99 03/21/20 03/21/20 03/21/20 03:39 03:49 04:12 Temperature Heart Rate 124 H 122 H 97 Respiratory 18 20 16 Rate Blood Pressure 175/115 H 138/55 H 140/93 H O2 Saturation 99 94 98 03/21/20 03/21/20 03/21/20 04:39 04:46 05:22 Temperature Heart Rate 103 H 99 198 H Respiratory 20 18 18 Rate Blood Pressure 109/71 125/107 H 130/102 H O2 Saturation 100 98 98 03/21/20 03/21/20 03/21/20 05:38 05:48 06:19 Temperature 36.7 C Heart Rate 103 H 105 H 73 Respiratory 22 22 16 Rate Blood Pressure 97/68 117/60 O2 Saturation 99 99 100 03/21/20 06:45 Temperature 36.4 C L Heart Rate 67 Respiratory 18 Rate Blood Pressure 126/59 L O2 Saturation 100 Oxygen O2 Source [] Room air O2 Source BIPAP Oxygen Flow Rate 2 - EKG (time done) 03:09 Rate: Other (Atrial fibrillation with rapid ventricular response no STEMI) - Labs Labs: Laboratory Tests 03/21/20 03/21/20 03/21/20 03:15 03:17 03:17 WBC 9.0 RBC 3.73 L Hgb 10.9 L Hct 33.5 L MCV 89.8 MCH 29.2 MCHC 32.5 RDW 13.6 Plt Count 258 MPV 10.7 Neut # (Auto) 5.3 Lymph # (Auto) 2.4 Pi[place] # (Auto) 0.7 Eos # (Auto) 0.4 Baso # (Auto) 0.1 Absolute Nucleated RBC 0.00 Nucleated RBC % 0.0 PT 14.9 H INR 1.4 H APTT 33.9 H Bld Gas Analysis Time 0325 Sample Site RIGHT RADIAL ABG pH 7.35 ABG pCO2 47 H ABG pO2 132 H ABG HCO3 25.0 ABG Total CO2 26.5 ABG O2 Saturation 98 ABG Base Excess -0.9 Javed Test POSITIVE O2 Delivery Device SIMPLE MASK FiO2 10.00 Sodium Potassium Chloride Carbon Dioxide Anion Gap BUN Creatinine Estimated GFR (MDRD) Glucose Lactic Acid Calcium Magnesium Total Bilirubin AST ALT Alkaline Phosphatase Total Creatine Kinase Troponin I High Sens B-Natriuretic Peptide Total Protein Albumin Globulin Albumin/Globulin Ratio Lipase TSH Urine Color Urine Clarity Urine pH Ur Specific [place] Urine Protein Urine Glucose (UA) Urine Ketones Urine Occult Blood Urine Nitrite Urine Bilirubin Urine Urobilinogen Ur Leukocyte Esterase Urine RBC Urine WBC Ur Squamous Epith Cells Urine Bacteria Ur Microscopic Review Urine Culture Comments 03/21/20 03/21/20 03/21/20 03:17 03:17 03:17 WBC RBC Hgb Hct MCV MCH MCHC RDW Plt Count MPV Neut # (Auto) Lymph # (Auto) [place] # (Auto) Eos # (Auto) Baso # (Auto) Absolute Nucleated RBC Nucleated RBC % PT INR APTT Bld Gas Analysis Time Sample Site ABG pH ABG pCO2 ABG pO2 ABG HCO3 ABG Total CO2 ABG O2 Saturation ABG Base Excess Javed Test O2 Delivery Device FiO2 Sodium 133 L Potassium 3.5 Chloride 94 L Carbon Dioxide 27 Anion Gap 12.0 BUN 30 H Creatinine 1.4 H Estimated GFR (MDRD) 36 L Glucose 135 H Lactic Acid Calcium 10.0 Magnesium 2.1 Total Bilirubin 0.7 AST 33 ALT 31 Alkaline Phosphatase 96 Total Creatine Kinase 230 Troponin I High Sens 8.9 B-Natriuretic Peptide 256 H Total Protein 7.6 Albumin 4.5 Globulin 3.1 Albumin/Globulin Ratio 1.5 Lipase 26 TSH Urine Color Urine Clarity Urine pH Ur Specific [place] Urine Protein Urine Glucose (UA) Urine Ketones Urine Occult Blood Urine Nitrite Urine Bilirubin Urine Urobilinogen Ur Leukocyte Esterase Urine RBC Urine WBC Ur Squamous Epith Cells Urine Bacteria Ur Microscopic Review Urine Culture Comments 03/21/20 03/21/20 03/21/20 03:17 03:17 04:00 WBC RBC Hgb Hct MCV MCH MCHC RDW Plt Count MPV Neut # (Auto) Lymph # (Auto) [place] # (Auto) Eos # (Auto) Baso # (Auto) Absolute Nucleated RBC Nucleated RBC % PT INR APTT Bld Gas Analysis Time Sample Site ABG pH ABG pCO2 ABG pO2 ABG HCO3 ABG Total CO2 ABG O2 Saturation ABG Base Excess Javed Test O2 Delivery Device FiO2 Sodium Potassium Chloride Carbon Dioxide Anion Gap BUN Creatinine Estimated GFR (MDRD) Glucose Lactic Acid 0.9 Calcium Magnesium Total Bilirubin AST ALT Alkaline Phosphatase Total Creatine Kinase Troponin I High Sens B-Natriuretic Peptide Total Protein Albumin Globulin Albumin/Globulin Ratio Lipase TSH 4.21 Urine Color YELLOW Urine Clarity CLEAR Urine pH 7.0 Ur Specific [place] 1.015 Urine Protein TRACE Urine Glucose (UA) NEGATIVE Urine Ketones NEGATIVE Urine Occult Blood NEGATIVE Urine Nitrite POSITIVE H Urine Bilirubin NEGATIVE Urine Urobilinogen 0.2 (NORMAL) Ur Leukocyte Esterase NEGATIVE Urine RBC 0-5 Urine WBC 0-3 Ur Squamous Epith Cells FEW Squamous Urine Bacteria Moderate H Ur Microscopic Review INDICATED Urine Culture Comments INDICATED 03/21/20 06:26 WBC RBC Hgb Hct MCV MCH MCHC RDW Plt Count MPV Neut # (Auto) Lymph # (Auto) [place] # (Auto) Eos # (Auto) Baso # (Auto) Absolute Nucleated RBC Nucleated RBC % PT INR APTT Bld Gas Analysis Time Sample Site ABG pH ABG pCO2 ABG pO2 ABG HCO3 ABG Total CO2 ABG O2 Saturation ABG Base Excess Javed Test O2 Delivery Device FiO2 Sodium 131 L Potassium 4.5 Chloride 93 L Carbon Dioxide 24 Anion Gap 14.0 H BUN 32 H Creatinine 1.5 H Estimated GFR (MDRD) 33 L Glucose 149 H Lactic Acid Calcium 9.5 Magnesium Total Bilirubin AST ALT Alkaline Phosphatase Total Creatine Kinase Troponin I High Sens B-Natriuretic Peptide Total Protein Albumin Globulin Albumin/Globulin Ratio Lipase TSH Urine Color Urine Clarity Urine pH Ur Specific [place] Urine Protein Urine Glucose (UA) Urine Ketones Urine Occult Blood Urine Nitrite Urine Bilirubin Urine Urobilinogen Ur Leukocyte Esterase Urine RBC Urine WBC Ur Squamous Epith Cells Urine Bacteria Ur Microscopic Review Urine Culture Comments PD MEDICAL DECISION MAKING - ED course Complexity details: reviewed old records, reviewed results, re-evaluated patient, considered differential, d/w patient, d/w family, other ED course: 84-year-old female with dyspnea. Differential includes CHF COPD pulmonary embolism she has a history of PE she is currently anticoagulated. Also in the differential would be pneumonia. patient work up consistent with acute pulmonary edema, on bipap, 80 mg iv lasix. contacted several hospitals for admission, no beds available, patient signed out at shift change to dr nathalie cardenas. - Consults Consults: Discussed case with (dr. dubon, hospitalist. unable to accept this patient because patient is on bipap and [facility] requires patient on BIPAP to be in ICU and no ICU beds are available.) - Critical Care Time(min): 30 Time Includes: Direct patient care, Review records, Reassess patient, Document care, Coordinate care, Medical consult, Family consult for tx dec Data interpretation: Labs, ABG, CXR, Prior EKG Procedures included in critical care time: Peripheral IV Procedures excluded from critical care time: EKG Departure - Departure Disposition: 02 Transfer Acute Care Hosp Clinical Impression: Severe chronic obstructive pulmonary disease Congestive heart failure Qualifiers: Heart failure type: unspecified Heart failure chronicity: unspecified Qualified Code(s): I50.9 - Heart failure, unspecified Pulmonary edema Qualifiers: Chronicity: acute Qualified Code(s): J81.0 - Acute pulmonary edema Condition: Stable
[2020-03-21] MEDS ORDERED: IPRATROPIUM/ALBUTEROL 3 ML NEB INH STA (03:06)
[2020-03-21] MEDS ORDERED: FUROSEMIDE 40 MG/4 ML VIAL IVP STA ×2 (03:09→03:53)
[2020-03-21] MEDS ORDERED: cefTRIAXone 1 GM VIAL IVP STA (03:10)
[2020-03-21] MEDS ORDERED: diltiaZEM INJ 5 MG/ML VIAL IVP STA (03:13)
[2020-03-21 03:23] LABS: ABG BASE EXCESS -0.9 mmol/L (-2.0-3.0); ABG OXYGEN SATURATION 98 % (94-98); ABG PCO2 47 mmHg (34-45); ABG PH 7.35 (7.35-7.45); ABG PO2 132 mmHg (80-100); ABG TCO2 26.5 MMOL/L (21.0-29.0); ALLEN TEST POSITIVE
[2020-03-21 03:29] LABS: BASOPHILS # (AUTO) 0.1 10^3/uL (0.0-0.1); BASOPHILS % (AUTO) 0.7 %; EOSINOPHILS # (AUTO) 0.4 10^3/uL (0.0-0.7); EOSINOPHILS % (AUTO) 4.7 %; HGB - HEMOGLOBIN 10.9 g/dL (12.0-16.0); LYMPHOCYTES # (AUTO) 2.4 10^3/uL (1.5-3.5); LYMPHOCYTES % (AUTO) 26.8 %; MEAN CORPUSCULAR HEMOGLOBIN 29.2 pg (27.0-31.0); MEAN CORPUSCULAR HGB CONC 32.5 g/dL (32.0-36.0); MEAN CORPUSCULAR VOLUME 89.8 fL (81.0-99.0); MEAN PLATELET VOLUME 10.7 fL (7.9-10.8); MONOCYTES # (AUTO) 0.7 10^3/uL (0.0-1.0); MONOCYTES % (AUTO) 7.9 %; NEUTROPHILS # (AUTO) 5.3 10^3/uL (1.5-6.6); NEUTROPHILS % (AUTO) 59.5 %; PLT - PLATELET COUNT 258 10^3/uL (130-450); RED BLOOD COUNT 3.73 10^6/uL (4.20-5.40); RED CELL DISTRIBUTION WIDTH 13.6 % (12.0-15.0)
[2020-03-21 03:35] LABS: INR 1.4 (0.8-1.2); PT - PROTHROMBIN TIME 14.9 secs (9.9-12.6)
[2020-03-21 03:42] LABS: PARTIAL THROMBOPLASTIN TIME 33.9 secs (24.9-33.3)
[2020-03-21 03:44] LABS: ALBUMIN 4.5 g/dL (3.2-5.5); ALBUMIN/GLOBULIN RATIO 1.5 (1.0-2.2); BILIRUBIN,TOTAL 0.7 mg/dL (0.2-1.0); CREATININE 1.4 mg/dL (0.4-1.0); MAGNESIUM 2.1 mg/dL (1.7-2.8); TOTAL PROTEIN 7.6 g/dL (6.7-8.2)
[2020-03-21] MEDS ORDERED: ONDANSETRON 4 MG/2 ML VIAL IVP STA (03:54)
[2020-03-21] MEDS ORDERED: ONDANSETRON 4 MG/2 ML VIAL ONE (04:05)
[2020-03-21] MEDS ORDERED: MORPHINE 2 MG/ML CARPUJECT IVP STA ×2 (04:34→10:12)
[2020-03-21] MEDS ORDERED: POTASSIUM CHLOR 20 MEQ/100 ML 20 MEQ/100 ML BAG IV ONE (04:37)
[2020-03-21 05:22] LABS: BILIRUBIN,URINE NEGATIVE (NEGATIVE); GLUCOSE, URINE (UA) NEGATIVE (NEGATIVE); KETONES,URINE (UA) NEGATIVE (NEGATIVE); LEUKOCYTE ESTERASE, URINE NEGATIVE (NEGATIVE); NITRITE,URINE POSITIVE (NEGATIVE); OCCULT BLOOD,URINE NEGATIVE (NEGATIVE); PROTEIN,URINE TRACE mg/dL (NEGATIVE); UROBILINOGEN,URINE 0.2 (NORMAL) E.U./dL (NORMAL)
[2020-03-21 05:24] LABS: CLARITY,URINE CLEAR (CLEAR)
[2020-03-21 05:29] LABS: BACTERIA,URINE Moderate /HPF (None Seen); RBC,URINE 0-5 /HPF (0-5); SQUAMOUS EPITHELIAL CELL,UR FEW Squamous (<= Few)
[2020-03-21 06:40] LABS: CALCIUM 9.5 mg/dL (8.5-10.3); CREATININE 1.5 mg/dL (0.4-1.0)
--- NOTE | 2020-03-21 07:06 | XRAY Report ---
PROCEDURE: Chest 1 View X-Ray INDICATIONS: sob TECHNIQUE: One view of the chest was acquired. COMPARISON: 03/04/2019 FINDINGS: Surgical changes and devices: Throughout the lumbar spine fixation hardware is stable where visualize d. Lungs and pleura: Small bilateral pleural fluid collections. Cephalization of pulmonary vasculature a nd interstitial prominence with Kamila B-lines. Mediastinum: Mediastinal contours appear normal. Heart is enlarged Bones and chest wall: No suspicious bony lesions. Overlying soft tissues appear unremarkable. IMPRESSION: CHF with small bilateral pleural effusions. Reviewed by: Kyra Mg MD, PhD on 03/21/2020 7:05 AM PDT Approved by: Kyra Mg MD, PhD on 03/21/2020 7:05 AM PDT Station ID: [id number]
[2020-03-21] MEDS ORDERED: APIXABAN 5 MG TABLET PO STA (10:57)
[2020-03-21] MEDS ORDERED: LEVOTHYROXINE 25 MCG TABLET PO STA (10:57)
[2020-03-21] MEDS ORDERED: methocarbamoL 500 MG TABLET PO STA (10:58)
[2020-03-21] MEDS ORDERED: GABAPENTIN 100 MG CAPSULE PO STA (10:58)
[2020-03-21] MEDS ORDERED: APIXABAN 2.5 MG TABLET PO STA (11:02)
[2020-03-21] MEDS ORDERED: GABAPENTIN 300 MG CAPSULE PO STA (11:17)
[2020-03-21 12:11] VITALS: BP 127/76
== END 2020-03-21 12:50 | disposition short-term general hospital (02) ==
LOC: EDUNIT# → ED 02:50
DX: J44.9 Chronic obstructive pulmonary disease, unspecified (principal); J81.0 Acute pulmonary edema; I11.0 Hypertensive heart disease with heart failure; I50.9 Heart failure, unspecified; I48.91 Unspecified atrial fibrillation; Z86.711 Personal history of pulmonary embolism; Z86.718 Personal history of other venous thrombosis and embolism; Z79.01 Long term (current) use of anticoagulants
CPT/HCPCS: 36415; 36600; 71045; 80048; 80053; 81001; 82550; 82803; 83605; 83690; 83735; 83880; 84443; 84484; 85025; 85610; 85730; 87040; 87086; 93005; 96365; 96375; 96376; 99285; 99291; A9270; 81003

== ENCOUNTER 2020-04-11 08:00 | Outpatient (CLI) | payer MEDICARE, OTHER ==
[2020-04-11 11:49] LABS: BASOPHILS # (AUTO) 0.1 10^3/uL (0.0-0.1); BASOPHILS % (AUTO) 0.9 %; EOSINOPHILS # (AUTO) 0.3 10^3/uL (0.0-0.7); HGB - HEMOGLOBIN 10.2 g/dL (12.0-16.0); LYMPHOCYTES # (AUTO) 1.5 10^3/uL (1.5-3.5); LYMPHOCYTES % (AUTO) 20.6 %; MEAN CORPUSCULAR HEMOGLOBIN 28.1 pg (27.0-31.0); MEAN CORPUSCULAR HGB CONC 31.2 g/dL (32.0-36.0); MEAN CORPUSCULAR VOLUME 90.1 fL (81.0-99.0); MEAN PLATELET VOLUME 11.8 fL (7.9-10.8); MONOCYTES # (AUTO) 0.7 10^3/uL (0.0-1.0); MONOCYTES % (AUTO) 8.7 %; NEUTROPHILS # (AUTO) 4.9 10^3/uL (1.5-6.6); NEUTROPHILS % (AUTO) 65.5 %; PLT - PLATELET COUNT 246 10^3/uL (130-450); RED BLOOD COUNT 3.63 10^6/uL (4.20-5.40); RED CELL DISTRIBUTION WIDTH 13.7 % (12.0-15.0); WHITE BLOOD COUNT 7.4 x10^3/uL (4.8-10.8)
[2020-04-11 11:53] LABS: ALBUMIN/GLOBULIN RATIO 1.4 (1.0-2.2); BILIRUBIN,TOTAL 0.7 mg/dL (0.2-1.0); CALCIUM 9.6 mg/dL (8.5-10.3); CREATININE 1.6 mg/dL (0.4-1.0); TOTAL PROTEIN 6.8 g/dL (6.7-8.2)
[2020-04-11 12:24] LABS: HEMOGLOBIN A1c% 6.5 % (4.27-6.07)
== END 2020-04-11 23:59 | disposition home or self-care (01) ==
LOC: LAB.WCP 08:00
PROVIDERS: ATTEND Family Medicine
DX: I11.0 Hypertensive heart disease with heart failure (principal); I50.31 Acute diastolic (congestive) heart failure; E03.9 Hypothyroidism, unspecified; E78.5 Hyperlipidemia, unspecified; J44.9 Chronic obstructive pulmonary disease, unspecified; R73.01 Impaired fasting glucose
CPT/HCPCS: 36415; 80053; 83036; 83880; 84443; 85025

== ENCOUNTER 2020-04-18 08:00 | Outpatient (CLI) | payer MEDICARE, OTHER ==
[2020-04-18 18:40] LABS: ABSOLUTE RETICS # AUTO 0.029 10^6/uL (0.020-0.110); RED BLOOD COUNT 3.52 10^6/uL (4.20-5.40)
[2020-04-18 19:25] LABS: FERRITIN 66.2 ng/mL (11.0-306.8)
[2020-04-18 20:04] LABS: % IRON SATURATION 9 % (20-50); IRON 31 ug/dL (28-170); TOTAL IRON BINDING CAPACITY 364 ug/dL (250-450); TRANSFERRIN 260 mg/dL (192-382)
== END 2020-04-18 23:59 | disposition home or self-care (01) ==
LOC: LAB.WCP 08:00
PROVIDERS: ATTEND Internal Medicine
DX: D64.9 Anemia, unspecified (principal)
CPT/HCPCS: 36415; 82607; 82728; 83540; 84466; 85045

== ENCOUNTER 2020-04-25 10:37 | Outpatient (CLI) | payer MEDICARE, OTHER ==
--- NOTE | 2020-04-25 16:58 | DEXA Report ---
PROCEDURE: Dexa Spine and/or Hip INDICATIONS: POST MENOPAUSAL TECHNIQUE: Dual energy x-ray absorptiometry (DXA) was performed on a [employer] System. Regions measur ed are the AP Spine, femoral neck, and if needed forearm. COMPARISON: None. FINDINGS: Left Hip: Bone Mineral Density 0.736 g/cm/cm,T score -2.2, moderate to severe osteopenia Left Femoral Neck: Bone Mineral Density 0.780 g/cm/cm, T score -1.9, moderate osteopenia Left forearm: Bone Mineral Density 0.506 g/cm/cm, T score -2.8, osteoporosis (T score greater or equal to -1.0: NORMAL) (T score from -1.1 to -2.4: OSTEOPENIA) (T score less than or equal to -2.5 to: OSTEOPOROSIS) Impression: Osteoporosis and osteopenia most severe in the left forearm as above. Patients with diagnosis of osteoporosis or osteopenia should have regular bone mineral density assess ment. For those eligible for Medicare, routine testing is allowed once every 2 years. Testing frequ ency can be increased for patients who have rapidly progressing disease or for those who are receivin g medical therapy to restore bone mass. Reviewed by: Emily Good MD on 04/25/2020 4:57 PM PST Approved by: Emily Good MD on 04/25/2020 4:57 PM PST Station ID: [id number]
== END 2020-04-25 10:38 | disposition home or self-care (01) ==
LOC: DI 10:37
PROVIDERS: ATTEND Internal Medicine
DX: M81.0 Age-related osteoporosis without current pathological fracture (principal)
CPT/HCPCS: 77080; 77081

== ENCOUNTER 2021-03-13 07:39 | Outpatient (CLI) | payer MEDICARE, OTHER ==
[2021-03-13 12:42] LABS: ABSOLUTE RETICS # AUTO 0.036 10^6/uL (0.020-0.110); BASOPHILS # (AUTO) 0.1 10^3/uL (0.0-0.1); BASOPHILS % (AUTO) 1.2 %; EOSINOPHILS # (AUTO) 0.4 10^3/uL (0.0-0.7); EOSINOPHILS % (AUTO) 6.1 %; HCT - HEMATOCRIT 34.6 % (37.0-47.0); HGB - HEMOGLOBIN 11.1 g/dL (12.0-16.0); LYMPHOCYTES # (AUTO) 1.6 10^3/uL (1.5-3.5); LYMPHOCYTES % (AUTO) 25.5 %; MEAN CORPUSCULAR HEMOGLOBIN 30.1 pg (27.0-31.0); MEAN CORPUSCULAR HGB CONC 32.1 g/dL (32.0-36.0); MEAN CORPUSCULAR VOLUME 93.8 fL (81.0-99.0); MEAN PLATELET VOLUME 11.6 fL (7.9-10.8); MONOCYTES # (AUTO) 0.6 10^3/uL (0.0-1.0); NEUTROPHILS # (AUTO) 3.7 10^3/uL (1.5-6.6); PLT - PLATELET COUNT 274 10^3/uL (130-450); RED BLOOD COUNT 3.69 10^6/uL (4.20-5.40); RED CELL DISTRIBUTION WIDTH 13.3 % (12.0-15.0); RETICULOCYTE COUNT % (AUTO) 0.97 % (0.5-2.3); WHITE BLOOD COUNT 6.4 x10^3/uL (4.8-10.8)
[2021-03-13 12:55] LABS: ESTIMATED AVERAGE GLUCOSE 128 mg/dL (70-100); HEMOGLOBIN A1c% 6.1 % (4.27-6.07)
[2021-03-13 12:57] LABS: % IRON SATURATION 32 % (20-50); ALBUMIN 4.6 g/dL (3.2-5.5); ALBUMIN/GLOBULIN RATIO 1.5 (1.0-2.2); ALKALINE PHOSPHATASE 66 IU/L (42-121); ALT ALANINE AMINOTRANSFERASE 19 IU/L (10-60); AST ASPARTATE AMINOTRANSFERASE 30 IU/L (10-42); BILIRUBIN,TOTAL 0.9 mg/dL (0.2-1.0); BUN - BLOOD UREA NITROGEN 43 mg/dL (6-20); CALCIUM 10.5 mg/dL (8.5-10.3); CARBON DIOXIDE - CO2 29 mmol/L (21-32); CHLORIDE 100 mmol/L (101-111); CHOL/HDL RATIO 1.9 (<4.4); CHOLESTEROL 200 mg/dL; CREATININE 1.8 mg/dL (0.4-1.0); GFR - MDRD 27 (>89); GLUCOSE 94 mg/dL (70-100); HDL CHOLESTEROL 104 mg/dL; IRON 106 ug/dL (28-170); LDL CHOLESTEROL,CALCULATED 79 mg/dL; LDL/HDL RATIO 0.8 (<4.4); POTASSIUM 4.4 mmol/L (3.5-5.0); SODIUM 141 mmol/L (135-145); TOTAL IRON BINDING CAPACITY 326 ug/dL (250-450); TOTAL PROTEIN 7.6 g/dL (6.7-8.2); TRANSFERRIN 233 mg/dL (192-382); TRIGLYCERIDES 87 mg/dL; VLDL CHOLESTEROL 17 mg/dL
[2021-03-13 13:08] LABS: THYROID STIMULATING HORMONE 2.46 uIU/mL (0.34-5.60)
== END 2021-03-13 07:40 | disposition home or self-care (01) ==
LOC: LAB.N 07:39
PROVIDERS: ATTEND Internal Medicine
DX: I10 Essential (primary) hypertension (principal); E78.5 Hyperlipidemia, unspecified; D50.9 Iron deficiency anemia, unspecified; R73.03 Prediabetes; I48.91 Unspecified atrial fibrillation
CPT/HCPCS: 36415; 80053; 80061; 82728; 83036; 83540; 83721; 84443; 84466; 85025; 85045

== ENCOUNTER 2021-03-13 07:57 | Outpatient (CLI) | payer MEDICARE, OTHER ==
--- NOTE | 2021-03-13 09:27 | XRAY Report ---
PROCEDURE: Mandible Bilat INDICATIONS: JAW PAIN TECHNIQUE: 4 views of the mandible were acquired. COMPARISON: None FINDINGS: Bones: No fractures or dislocations. No suspicious bony lesions. Spinal fixation hardware in visua lized portion of lower cervical and thoracic spine is seen. Soft tissues: Visualized sinuses appear clear. No suspicious soft tissue densities. IMPRESSION: No gross mandibular fracture or suspicious mandibular lesion. No gross soft tissue abnormality. Reviewed by: Krishna Gray MD on 03/13/2021 9:26 AM PDT Approved by: Krishna Gray MD on 03/13/2021 9:26 AM PDT Station ID: [id number]
== END 2021-03-13 07:58 | disposition home or self-care (01) ==
LOC: DI.N 07:57
PROVIDERS: ATTEND Internal Medicine
DX: R68.84 Jaw pain (principal); I10 Essential (primary) hypertension; E78.5 Hyperlipidemia, unspecified; D50.9 Iron deficiency anemia, unspecified; R73.03 Prediabetes; I48.91 Unspecified atrial fibrillation
CPT/HCPCS: 36415; 80053; 80061; 82728; 83036; 83540; 83721; 84443; 84466; 85025; 85045

== ENCOUNTER 2021-07-03 08:00 | Outpatient (CLI) | payer MEDICARE, OTHER | END 2021-07-03 23:59 | LOC: LAB.N 08:00 | PROVIDERS: ATTEND Physician Assistant | DX: N39.0 Urinary tract infection, site not specified (principal); R39.9 Unspecified symptoms and signs involving the genitourinary system | CPT/HCPCS: 87086; 87181 ==

== ENCOUNTER 2021-12-18 13:29 | Outpatient (CLI) | payer MEDICARE, OTHER ==
--- NOTE | 2021-12-18 16:57 | Ultrasound Report ---
PROCEDURE: Head or Neck Soft Tissue INDICATIONS: THYROID NODULE TECHNIQUE: Real-time scanning was performed of the thyroid gland, with image documentation. COMPARISON: Thyroid ultrasound report, 08/25/2009. FINDINGS: Technically difficult examination due to significant kyphosis and postsurgical changes see n). Right: Thyroid lobe measures 2.1 x 1.4 x 3.5 cm, and is homogeneous in echotexture. Left: Thyroid lobe measures 2.65 by 1.3 x 3.2 cm, and is homogenous in echotexture. Isthmus: 4 mm thick. Previously seen nodule in the inferior pole of the left thyroid lobe is not visualized on the current exam. IMPRESSION: 1. Normal ultrasound appearance of thyroid gland. No suspicious thyroid nodules visualized. 2. Previously seen left inferior nodule is not visualized on the current exam. ACR TI-RADS definitions and recommendations: TI-RADS 1 (benign): 0 points. FNA not needed. TI-RADS 2 (not suspicious): 2 points. FNA not needed. TI-RADS 3 (mildly suspicious): 3 points. "FNA if 2.5 cm or larger, follow up if 1.5 cm or larger (at 1, 3, and 5 years). TI-RADS 4 (moderately suspicious): 4-6 points. "FNA if 1.5 cm or larger, follow up if 1 cm or larger (at 1, 2, 3, and 5 years). TI-RADS 5 (highly suspicious): 7 points or more. "FNA if 1 cm or larger, follow up if 0.5 cm or larger (every year for 5 years). Reviewed by: Jessica Vazquez MD on 12/18/2021 4:56 PM PDT Approved by: Jessica Vazquez MD on 12/18/2021 4:56 PM PDT Station ID: [id number]
== END 2021-12-18 13:30 | disposition home or self-care (01) ==
LOC: DI 13:29
PROVIDERS: ATTEND Internal Medicine
DX: E04.1 Nontoxic single thyroid nodule (principal)

== ENCOUNTER 2021-12-29 08:36 | Outpatient (CLI) | payer MEDICARE, OTHER ==
--- NOTE | 2021-12-29 16:15 | CT Report ---
PROCEDURE: CHEST WO INDICATIONS: SWEATING, COPD TECHNIQUE: Noncontrast 1mm axial images were acquired from the pulmonary apices to the posterior costophrenic an gles. Axial 5 mm soft tissue kernel reconstructions were performed as well as 8 mm axial MIP and cor onal and sagittal 5 mm reformations. For radiation dose reduction, the following was used: automate d exposure control, adjustment of mA and/or kV according to patient size. COMPARISON: CT chest 02/10/2019 FINDINGS: Image quality: There is limited visualization of the pelvis secondary to artifact from spinal fusion hardware. Lungs and pleura: No acute air space opacities. No pleural effusions or pneumothorax. Central and peripheral airways are patent and normal in caliber. Lungs are hyperexpanded suggestive COPD. Mild a ppearance of bronchiectasis within the bases. Scattered reticular opacities are present suggestive of fibrosis relatively unchanged compared to prior exam. Mediastinum: Heart size is mildly prominent with coronary calcifications. There is a trace pericardi al effusion. No mediastinal adenopathy by size criteria. Thoracic aorta and central pulmonary arter ies are normal in size. Esophagus is normal in caliber. No hiatal hernia. Bones and chest wall: No suspicious bony lesions. No vertebral body compression fractures. No axil jaison or supraclavicular adenopathy by size criteria. The thyroid is normal in size and there are no incidental findings. Abdomen: Anterior to the liver to the right of midline within the subcutaneous tissues are incomplet celena visualized foci of air. Otherwise, visualized upper abdominal solid organs and bowel loops appear normal in the absence of contrast. IMPRESSION: Lungs are clear. Areas of air to the right of midline extending towards the anterior abdominal wall soft tissues suspe cted to be related to interposed bowel loops. However, it is only seen in limited view. If this area is of concern for other etiology, full abdomen is recommended for further evaluation. Cardiomegaly with trace effusion. CLINICAL RECOMMENDATION STATEMENTS: In patients <35 years with an ITN detected on CT, MRI, or extrathyroidal ultrasound, the Committee re commends further evaluation with dedicated thyroid ultrasound if the nodule is "e1 cm and has no susp icious imaging features, and if the patient has normal life expectancy. In patients "e35 years with an ITN detected on CT, MRI, or extrathyroidal ultrasound, the Committee r ecommends further evaluation with dedicated thyroid ultrasound if the nodule is "e1.5 cm and has no s uspicious imaging features, and if the patient has normal life expectancy. (ACR, 2014) Reviewed by: Emily Good MD on 12/29/2021 4:14 PM PDT Approved by: Emily Good MD on 12/29/2021 4:14 PM PDT Station ID: [id number]
== END 2021-12-29 08:37 | disposition home or self-care (01) ==
LOC: DI 08:36
PROVIDERS: ATTEND Internal Medicine
DX: J44.9 Chronic obstructive pulmonary disease, unspecified (principal); R61 Generalized hyperhidrosis; I51.7 Cardiomegaly

== ENCOUNTER 2022-04-06 08:00 | Outpatient (CLI) | payer MEDICARE, OTHER ==
--- NOTE | 2022-04-06 12:38 | XRAY Report ---
PROCEDURE: Foot 2 View LT INDICATIONS: L FOOT PX TECHNIQUE: 2 views of the foot were acquired. COMPARISON: None FINDINGS: Bones: No acute fractures or dislocations. No suspicious bony lesions. The bones appear deminerali zed. Severe degenerative changes at the first MTP joint are present and there are scattered polyartic ular degenerative changes elsewhere, for example multiple IP joints. Soft tissues: No tibiotalar joint effusion. Vascular calcifications are present. IMPRESSION: 1. No acute fracture visualized. 2. Polyarticular degenerative changes present, severe at the first MTP joint. 3. If symptoms persist, follow-up radiographs and/or CT may be helpful for further evaluation. Reviewed by: Matthew Fried MD on 04/06/2022 12:36 PM PDT Approved by: Matthew Fried MD on 04/06/2022 12:36 PM PDT Station ID: [id number]
== END 2022-04-06 23:59 | disposition home or self-care (01) ==
LOC: DI.N 08:00
PROVIDERS: ATTEND Nurse Practitioner
DX: M19.072 Primary osteoarthritis, left ankle and foot (principal)

== ENCOUNTER 2022-04-13 08:00 | Outpatient (CLI) | payer MEDICARE, OTHER ==
--- NOTE | 2022-04-13 15:27 | XRAY Report ---
PROCEDURE: Foot 3 View LT INDICATIONS: LEFT FOOT FRACTURE TECHNIQUE: 3 views of the foot were acquired. COMPARISON: 04/06/2022 FINDINGS: Bones: Scattered arthrosis, severe in the first MTP joint. Age-indeterminate bone fragments are seen, for example dorsally in the midfoot, and adjacent to the first MTP and fifth MTP and fifth metatarsa l base. These may be from prior injury. Possible geode in the distal navicular. Soft tissues: Vascular calcifications. Impression: No acute radiographic abnormality. High-grade degenerative changes and age-indeterminate bone fragmen ts as described above. If there is high concern for further derangement, consider CT or MRI evaluatio n. Reviewed by: Filipe Arguelles MD on 04/13/2022 3:25 PM PDT Approved by: Filipe Arguelles MD on 04/13/2022 3:25 PM PDT Station ID: [id number]
== END 2022-04-13 23:59 | disposition home or self-care (01) ==
LOC: DI.WOS 08:00
PROVIDERS: ATTEND Orthopaedic Surgery
DX: M19.072 Primary osteoarthritis, left ankle and foot (principal)

== ENCOUNTER 2022-06-18 17:09 | Emergency (ER) | payer MEDICARE, OTHER ==
[2022-06-18 17:25] VITALS: BP 168/95
--- NOTE | 2022-06-18 17:43 | ED Physician Documentation ---
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 : Incontinence, Nocturia HEENT: Chronic vision loss Psych: None Musculoskeletal: Osteoarthritis, Chronic back pain Derm: None - Past Surgical History Past Surgical History: Yes General: Colonoscopy, EGD Ortho: Spine surgery /BLOOD DONOR RECRUITER: Hysterectomy, Oophrectomy - Present Medications Home Medications: Ambulatory Orders Medication Instructions Recorded Confirmed Gabapentin 600 mg PO BID 11/13/13 05/01/20 Levothyroxine [Synthroid] 50 mcg PO QDAC 11/13/13 05/01/20 Multivitamin [Theragran] 1 tab PO DAILY 08/04/17 05/01/20 methocarbamoL [Methocarbamol] 500 mg PO 1200,2100 08/04/17 05/01/20 Acetaminophen [Tylenol] 650 mg PO Q4HR PRN #30 tablet 08/07/17 05/01/20 Apixaban [Eliquis] 5 mg PO BID 03/21/20 05/01/20 Calcium Carbonate/Vitamin D3 1 tab PO DAILY 03/21/20 05/01/20 [Calcium 600-Vit D3 800 [place]] Furosemide 20 mg PO DAILY 03/21/20 05/01/20 Rosuvastatin Calcium 5 mg PO DAILY 03/21/20 05/01/20 Gabapentin [Neurontin] 300 mg PO BID 05/01/20 05/01/20 Metoprolol Succinate [Toprol Xl] 25 mg PO DAILY 05/01/20 05/01/20 - Allergies Allergies/Adverse Reactions: Allergies Allergy/AdvReac Type Severity Reaction Status Date / Time Sulfa (Sulfonamide Allergy Intermediate Hives Verified 06/18/22 17:25 Antibiotics) clarithromycin [From Biaxin] Allergy Dizziness Verified 06/18/22 17:25 - Social History Does the pt smoke?: No Smoking Status: Never smoker Does the pt drink ETOH?: Yes Does the pt have substance abuse?: No - Immunizations Immunizations are current?: Yes - POLST Patient has POLST: No POLST Status: DNR PD ED PE NORMAL - Vitals Vital signs reviewed: Yes - General General: Alert and oriented X 3, No acute distress - HEENT HEENT: PERRL, EOMI, Other (She has soft globes, she has a lateral right subconjunctival hemorrhage. Fundus is easily Viewable) - Neuro Neuro: Alert and oriented X 3, assistant attorney general 2-12 intact, No motor deficit, No sensory deficit, Normal speech Eye Opening: Spontaneous Motor: Obeys Commands Verbal: Oriented GCS Score: 15 - Psych Psych: Normal mood, Normal affect Results - Vitals Vitals: Vital Signs - 24 hr 06/18/22 17:18 Temperature 35.7 C L Heart Rate 60 Respiratory 14 Rate Blood Pressure 168/95 H O2 Saturation 99 Oxygen O2 Source [With Activity] Room air O2 Source Room air PD Medical Decision Making - ED course ED course: 87-year-old woman with subconjunctival hemorrhage. Generally the conservative nature of this was discussed with her but she has an waiter/waitress second class who she plans to follow-up with but there is no urgency in my mind. Departure - Departure Disposition: 01 Home, Self Care Clinical Impression: Subconjunctival hemorrhage Qualifiers: Laterality: right Qualified Code(s): H11.31 - Conjunctival hemorrhage, right eye Condition: Good Record reviewed to determine appropriate education?: Yes Instructions: ED Eye Injury Subconj Hemorrhage Follow-Up: Juvenal Deleon MD [Provider Admit Priv/Credential] - Within 3 Days
== END 2022-06-18 18:00 | disposition home or self-care (01) ==
LOC: ED 17:09
DX: H11.31 Conjunctival hemorrhage, right eye (principal); I10 Essential (primary) hypertension; Z86.718 Personal history of other venous thrombosis and embolism; Z79.01 Long term (current) use of anticoagulants; Z86.711 Personal history of pulmonary embolism
CPT/HCPCS: 99281; 99283

== ENCOUNTER 2022-07-15 13:04 | Emergency (ER) | payer MEDICARE, OTHER ==
[2022-07-15 13:43] LABS: BASOPHILS % (AUTO) 0.6 %; EOSINOPHILS # (AUTO) 0.3 10^3/uL (0.0-0.7); EOSINOPHILS % (AUTO) 4.8 %; HGB - HEMOGLOBIN 10.4 g/dL (12.0-16.0); LYMPHOCYTES # (AUTO) 1.3 10^3/uL (1.5-3.5); LYMPHOCYTES % (AUTO) 23.5 %; MEAN CORPUSCULAR HEMOGLOBIN 29.1 pg (27.0-31.0); MEAN CORPUSCULAR HGB CONC 31.5 g/dL (32.0-36.0); MEAN CORPUSCULAR VOLUME 92.2 fL (81.0-99.0); MONOCYTES # (AUTO) 0.5 10^3/uL (0.0-1.0); MONOCYTES % (AUTO) 8.8 %; NEUTROPHILS # (AUTO) 3.4 10^3/uL (1.5-6.6); NEUTROPHILS % (AUTO) 62.1 %; PLT - PLATELET COUNT 204 10^3/uL (130-450); RED BLOOD COUNT 3.58 10^6/uL (4.20-5.40); RED CELL DISTRIBUTION WIDTH 14.1 % (12.0-15.0); WHITE BLOOD COUNT 5.5 x10^3/uL (4.8-10.8)
[2022-07-15 13:56] LABS: ALBUMIN/GLOBULIN RATIO 1.4 (1.0-2.2); BILIRUBIN,TOTAL 0.9 mg/dL (0.2-1.0); CALCIUM 9.8 mg/dL (8.5-10.3); CREATININE 1.9 mg/dL (0.4-1.0); POTASSIUM 4.8 mmol/L (3.5-5.0); TOTAL PROTEIN 6.8 g/dL (6.7-8.2)
--- NOTE | 2022-07-15 13:56 | ED Physician Documentation ---
PD HPI CHEST PAIN - Stated complaint Stated Complaint: CHEST PX - Chief complaint Chief Complaint: Cardiac - History obtained from History obtained from: Patient, Family - Additional information Additional information: This is an 87-year-old female who presents with chest discomfort. She states for the past 3 days she has had chest tightness and felt somewhat short of breath. This typically occurs at night and sometimes in the morning but she does not notice it throughout the day. It is nonexertional, and she cannot identify any exacerbating factors such as eating, deep breaths, coughing, or particular movements. The chest pain is in the left chest is nonradiating. She had some nausea last night but no vomiting. She has not had a cough or cold symptoms, no fever or chills, no diarrhea or abdominal pain, no urinary symptoms. She has not attempted any medication for this issue and cannot identify any alleviating factors. Patient states that she has had an episode similar in the past, about a year ago she was at [facility] and she was hospitalized overnight at which time they did a stress test that she reports was normal and a echocardiogram. She has not followed up with cardiology since that time. She also relates that 2 to 3 years ago, she did require hospitalization at [facility] for what sounds like a possible CHF exacerbation and she was there for several days or even a week before she was discharged home. She reports compliance with all her medications, denies any changes in weight or lower extremity edema, no changes in diet. Review of Systems Constitutional: reports: Reviewed and negative Eyes: reports: Reviewed and negative Ears: reports: Reviewed and negative Throat: reports: Reviewed and negative Cardiac: reports: Chest pain / pressure. denies: Palpitations, Pedal edema, Calf pain Respiratory: reports: Dyspnea. denies: Cough, Hemoptysis, Wheezing GI: reports: Nausea. denies: Abdominal Pain, Abdominal Swelling, Vomiting, Constipation, Diarrhea, Hematemesis, Bloody / black stool, Reviewed and negative, Other : denies: Dysuria, Frequency, Hesitancy, Unable to Void, Incontinent, Hematuria, Discharge, LMP, Vaginal bleeding, Irregular menses, Missed period, Now EGA, Control, Hysterectomy, Testicular pain, Testicular mass, Gibbs Problem, Reviewed and negative, Other Skin: denies: Rash, Lesions, Abrasion (s), Laceration (s), Bite / sting, Reviewed and negative, Other Musculoskeletal: denies: Neck pain, Back pain, Extremity pain, Joint pain, Extremity swelling, Joint swelling, Pain with weight bearing, Reviewed and negative, Other Neurologic: denies: Generalized weakness, Focal weakness, Numbness, Difficulty speaking, Near syncope, Syncope, Seizure, Confused, Altered mental status, Unresponsive, Headache, Head injury, LOC, Reviewed and negative, Other Psychiatric: denies: Depressed, Suicidal, Homicidal, Hallucinations, Delusions, Anxiety, Insomnia, Reviewed and negative, Other Immunocompromised: denies: Immunocompromised, HIV/AIDS, Asplenic, Chemotherapy, Transplant, Reviewed and negative, Other PD PAST MEDICAL HISTORY - Past Medical History Past Medical History: Yes Cardiovascular: Hypertension, High cholesterol, Deep vein thrombosis, Pulmonary embolism Respiratory: None Neuro: None Endocrine/Autoimmune: HyPOthyroidism GI: Other 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 : Incontinence, Nocturia HEENT: Chronic vision loss Psych: None Musculoskeletal: Osteoarthritis, Chronic back pain Derm: None - Past Surgical History Past Surgical History: Yes General: Colonoscopy, EGD Ortho: Spine surgery /SQUIRT MACHINE OPERATOR: Hysterectomy, Oophrectomy - Present Medications Home Medications: Ambulatory Orders Medication Instructions Recorded Confirmed Gabapentin 600 mg PO BID 11/13/13 05/01/20 Levothyroxine [Synthroid] 50 mcg PO QDAC 11/13/13 05/01/20 Multivitamin [Theragran] 1 tab PO DAILY 08/04/17 05/01/20 methocarbamoL [Methocarbamol] 500 mg PO 1200,2100 08/04/17 05/01/20 Acetaminophen [Tylenol] 650 mg PO Q4HR PRN #30 tablet 08/07/17 05/01/20 Apixaban [Eliquis] 5 mg PO BID 03/21/20 05/01/20 Calcium Carbonate/Vitamin D3 1 tab PO DAILY 03/21/20 05/01/20 [Calcium 600-Vit D3 800 Caplet] Furosemide 20 mg PO DAILY 03/21/20 05/01/20 Rosuvastatin Calcium 5 mg PO DAILY 03/21/20 05/01/20 Gabapentin [Neurontin] 300 mg PO BID 05/01/20 05/01/20 Metoprolol Succinate [Toprol Xl] 25 mg PO DAILY 05/01/20 05/01/20 - Allergies Allergies/Adverse Reactions: Allergies Allergy/AdvReac Type Severity Reaction Status Date / Time Sulfa (Sulfonamide Allergy Intermediate Hives Verified 06/18/22 17:25 Antibiotics) clarithromycin [From Biaxin] Allergy Dizziness Verified 06/18/22 17:25 - Social History Does the pt smoke?: No Smoking Status: Never smoker Does the pt drink ETOH?: Yes Does the pt have substance abuse?: No - Immunizations Immunizations are current?: Yes - POLST Patient has POLST: No POLST Status: DNR PD ED PE NORMAL - Vitals Vital signs reviewed: Yes - General General: Alert and oriented X 3, No acute distress, Well developed/nourished - HEENT HEENT: Atraumatic, Pharynx benign - Neck Neck: Supple, no meningeal sign, No JVD - Cardiac Cardiac: RRR, No murmur, No gallop, No rub, Strong equal pulses - Respiratory Respiratory: No respiratory distress, Clear bilaterally - Abdomen Abdomen: Normal bowel sounds, Soft, Non tender, Non distended - Back Back: No CVA TTP, No spinal TTP, Other (kyphosis) - Derm Derm: Normal color, Warm and dry, No rash - Extremities Extremities: No deformity, No tenderness to palpate, Normal ROM s pain, No edema, No calf tenderness / cord - Neuro Neuro: Alert and oriented X 3 Eye Opening: Spontaneous Motor: Obeys Commands Verbal: Oriented GCS Score: 15 - Psych Psych: Normal mood, Normal affect Results - Vitals Vitals: Vital Signs - 24 hr 07/15/22 07/15/22 07/15/22 13:11 14:14 14:30 Temperature 36.4 C L Heart Rate 60 67 56 L Respiratory 16 18 16 Rate Blood Pressure 130/62 135/65 H 154/69 H O2 Saturation 98 95 97 07/15/22 15:40 Temperature Heart Rate 64 Respiratory 16 Rate Blood Pressure 146/74 H O2 Saturation 97 Oxygen O2 Source [] Room air O2 Source Room air - EKG (time done) No standard instances Rate: Rate (enter#) (61) Rhythm: NSR [place]: Normal Intervals: Normal [place] QRS: Normal Ischemia: Normal ST segments Computer interpretation: Agree with computer - Labs Labs: Laboratory Tests 07/15/22 07/15/22 07/15/22 13:39 13:39 13:39 WBC 5.5 RBC 3.58 L Hgb 10.4 L Hct 33.0 L MCV 92.2 MCH 29.1 MCHC 31.5 L RDW 14.1 Plt Count 204 MPV 11.0 H Neut # (Auto) 3.4 Lymph # (Auto) 1.3 L [place] # (Auto) 0.5 Eos # (Auto) 0.3 Baso # (Auto) 0.0 Absolute Nucleated RBC 0.00 Nucleated RBC % 0.0 Sodium 132 L Potassium 4.8 Chloride 90 L Carbon Dioxide 29 Anion Gap 13.0 BUN 47 H Creatinine 1.9 H Estimated GFR (MDRD) 25 L Glucose 160 H Calcium 9.8 Total Bilirubin 0.9 AST 28 ALT 22 Alkaline Phosphatase 65 Troponin I High Sens 7.5 Total Protein 6.8 Albumin 4.0 Globulin 2.8 Albumin/Globulin Ratio 1.4 Lipase 48 07/15/22 14:58 WBC RBC Hgb Hct MCV MCH MCHC RDW Plt Count MPV Neut # (Auto) Lymph # (Auto) [place] # (Auto) Eos # (Auto) Baso # (Auto) Absolute Nucleated RBC Nucleated RBC % Sodium Potassium Chloride Carbon Dioxide Anion Gap BUN Creatinine Estimated GFR (MDRD) Glucose Calcium Total Bilirubin AST ALT Alkaline Phosphatase Troponin I High Sens 6.6 Total Protein Albumin Globulin Albumin/Globulin Ratio Lipase PD Medical Decision Making - ED course Complexity details: reviewed old records, reviewed results, re-evaluated patient, considered differential, d/w patient, d/w family ED course: 87-year-old female who presents with 3 days of chest tightness and shortness of breath, primarily at night and in the morning as described in HPI. The patient is well-appearing here, oxygenating well on room air and appears in no distress. We obtained an EKG which shows normal sinus rhythm, no acute ST changes. Labs including troponin x2 are reassuring. Chest x-ray is Stable. I discussed with patient and daughter, her symptoms are atypical and I did not suspect acute coronary syndrome and there were no signs of pneumonia or other acute findings on her exam today. I recommend she continue her medication and follow-up with cardiology in outpatient setting, and also regularly scheduled PCP visits for her multiple chronic conditions. I discussed return precautions if new or worsening symptoms and patient was discharged home in stable condition Departure - Departure Disposition: 01 Home, Self Care Clinical Impression: Chest pain Condition: Good Instructions: ED Chest Pain NonCardiac Comments: You presented with chest pain today. Your evaluation here is reassuring, her chest x-ray and EKG are stable and your cardiac labs are also stable. We discussed the different possibilities for your pain and at this time it does not appear to be cardiac. Please follow-up with your heart doctor for your ongoing pain, you may take Tylenol as needed as well as your regular medications. Discharge Date/Time: 07/15/22 15:47
--- NOTE | 2022-07-15 13:57 | XRAY Report ---
PROCEDURE: Chest 1 View X-Ray INDICATIONS: Chest pain TECHNIQUE: One view of the chest was acquired. COMPARISON: None. FINDINGS: Surgical changes and devices: Fixation hardware in visualized thoracic spine is seen. Lungs and pleura: No pleural effusions or pneumothorax. Lungs are clear. Mediastinum: Mediastinal contours appear normal. Heart size is enlarged Bones and chest wall: No suspicious bony lesions. Overlying soft tissues appear unremarkable. IMPRESSION: No acute cardiopulmonary pathology. Reviewed by: Krishna Gray MD on 07/15/2022 1:56 PM PST Approved by: Krishna Gray MD on 07/15/2022 1:56 PM [facility] Station ID: [id number]
[2022-07-15 15:41] VITALS: BP 146/74
== END 2022-07-15 15:47 | disposition home or self-care (01) ==
LOC: ED 13:04
DX: R07.9 Chest pain, unspecified (principal); I10 Essential (primary) hypertension; Z86.718 Personal history of other venous thrombosis and embolism; Z79.01 Long term (current) use of anticoagulants
CPT/HCPCS: 36415; 80053; 83690; 84484; 85025; 93005; 99283; 99284

== ENCOUNTER 2022-07-19 09:25 | Outpatient (CLI) | payer MEDICARE, OTHER ==
--- NOTE | 2022-07-21 11:30 | Mammography Report ---
BILATERAL DIGITAL SCREENING MAMMOGRAM 3D/2D: 07/19/2022 CLINICAL: Routine screening. Family history of breast cancer. Comparison is made to exams dated: 03/19/2019 mammogram, 09/24/2015 mammogram, and 09/25/2014 mammogram - [facility]. Both breasts are extremely dense, which lowers the sensitivity of mammography (category d />75% gland ular tissue). There is a possible new oval equal density asymmetry with a spiculated margin in the left breast midd le depth central to the nipple seen on the craniocaudal view only. No other significant masses, calcifications, or other findings are seen in either breast. IMPRESSION: INCOMPLETE: NEEDS ADDITIONAL IMAGING EVALUATION The possible new oval equal density asymmetry in the left breast is indeterminate. Additional views with possible ultrasound are recommended. This exam was interpreted at Station ID: [id number]. NOTE: For mammograms, a report in lay terms will be sent to the patient. Approximately 15% of breast malignancies will not be visualized mammographically. In the management of a palpable breast mass, a negative mammogram must not discourage biopsy of a clinically suspicious lesion. Electronically Signed By: Lacey mary/cindy:07/20/2022 10:36:01 ACR BI-RADS Category 0: Incomplete [id number] PARENCHYMAL PATTERN: (VD) - The breast(s) demonstrate(s) extremely dense parenchyma, limiting the sen sitivity of mammography. BI-RADS CATEGORY: (0) - 0 Mammo and [place] [id number] Immediate follow-up LATERALITY: (B)
== END 2022-07-19 09:26 | disposition home or self-care (01) ==
LOC: DI 09:25
DX: Z12.31 Encounter for screening mammogram for malignant neoplasm of breast (principal); R92.8 Other abnormal and inconclusive findings on diagnostic imaging of breast; Z80.3 Family history of malignant neoplasm of breast

== ENCOUNTER 2022-07-27 06:51 | Outpatient (CLI) | payer MEDICARE, OTHER | END 2022-07-27 06:52 | disposition critical access hospital (66) | LOC: EMS 06:51 | DX: R06.00 Dyspnea, unspecified (principal); R05.9 Cough, unspecified; R09.3 Abnormal sputum | CPT/HCPCS: A0425; A0427 ==

== ENCOUNTER 2022-07-27 07:06 | Inpatient (IN) | payer MEDICARE, OTHER ==
[2022-07-27] MEDS ORDERED: IPRATROPIUM/ALBUTEROL 3 ML NEB INH STA (07:19)
[2022-07-27] MEDS ORDERED: BENZONATATE 100 MG CAPSULE PO STA (07:20)
--- NOTE | 2022-07-27 07:20 | ED Physician Documentation ---
PD HPI DYSPNEA - Stated complaint Stated Complaint: SOA - History obtained from History obtained from: Patient, Family (daughter arrives and supplements the history and confirms the POLST standing.), EMS (EMS reports their blood vital signs findings of adequate blood pressure and heart rate. His oxygenation was 84% on room air on their arrival. Heart rate was mildly tachycardic at 110.) - History of Present Illness Timing - onset: How many days ago (4-5) Timing - onset during: Rest, Light activity Timing - duration: Hours (much worse trouble breathing this morning. Increased cough and congestion.), Days (The patient states she started feeling ill last Tuesday with cough and some wheezing. She has congestion as well. History of some intermittent reactive airway disease but no regular nebulizer nor inhaler use. She does not have oxygen at home. She is using her albuterol inhaler episodically.) Timing - details: Gradual onset, Still present Review of Systems Constitutional: reports: Chills, Myalgias. denies: Fever Nose: reports: Congestion. denies: Rhinorrhea / runny nose Throat: denies: Sore throat Cardiac: denies: Chest pain / pressure, Palpitations, Pedal edema, Calf pain Respiratory: reports: Dyspnea, Cough, Wheezing GI: denies: Abdominal Pain, Nausea, Vomiting, Diarrhea, Bloody / black stool Skin: denies: Rash Musculoskeletal: denies: Extremity swelling Neurologic: reports: Generalized weakness. 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 : Incontinence, Nocturia HEENT: Chronic vision loss Psych: None Musculoskeletal: Osteoarthritis, Chronic back pain Derm: None - Past Surgical History Past Surgical History: Yes General: Colonoscopy, EGD Ortho: Spine surgery /FOOD SAFETY COORDINATOR: Hysterectomy, Oophrectomy - Present Medications Home Medications: Ambulatory Orders Medication Instructions Recorded Confirmed Gabapentin 600 mg PO QID 11/13/13 07/27/22 Multivitamin [Theragran] 1 tab PO DAILY 08/04/17 07/27/22 methocarbamoL [Methocarbamol] 500 mg PO BID PRN 08/04/17 07/27/22 Acetaminophen [Tylenol] 650 mg PO Q4HR PRN #30 tablet 08/07/17 07/27/22 Calcium Carbonate/Vitamin D3 1 tab PO DAILY 03/21/20 07/27/22 [Calcium 600-Vit D3 800 Caplet] Furosemide 20 mg PO MOWEFR@0900 03/21/20 07/27/22 Metoprolol Succinate [Toprol Xl] 12.5 mg PO QPM 05/01/20 07/27/22 Apixaban [Eliquis] 2.5 mg PO BID 07/27/22 07/27/22 Cholecalciferol [Vitamin D3] 50 mcg PO DAILY 07/27/22 07/27/22 Furosemide [Lasix] 10 mg PO SUTUTHSA@0900 07/27/22 07/27/22 Levothyroxine [Synthroid] 25 mcg PO QDAC 07/27/22 07/27/22 Rosuvastatin Calcium [Crestor] 10 mg PO QPM 07/27/22 07/27/22 - Allergies Allergies/Adverse Reactions: Allergies Allergy/AdvReac Type Severity Reaction Status Date / Time Sulfa (Sulfonamide Allergy Intermediate Hives Verified 07/27/22 07:17 Antibiotics) clarithromycin [From Biaxin] Allergy Dizziness Verified 07/27/22 07:17 - Social History Does the pt smoke?: No Smoking Status: Never smoker Does the pt drink ETOH?: Yes Does the pt have substance abuse?: No - Immunizations Immunizations are current?: Yes - POLST Patient has POLST: No POLST Status: DNR (comfort measures; limited abx.) PD ED PE NORMAL - Vitals Vital signs reviewed: Yes - General General: Alert and oriented X 3, Well developed/nourished, Other (She has some prolonged expiratory phase and work of breathing. Partial sentence conversat ional dyspnea on arrival. She is answering questions appropriately and is alert.) - HEENT HEENT: Moist mucous membranes, Pharynx benign - Neck Neck: Supple, no meningeal sign, No adenopathy - Cardiac Cardiac: RRR, Other (1/6 murmur right chest without radiation) - Respiratory Respiratory: No: Clear bilaterally (Generalized expiratory wheezing with some prolonged expiratory phase. Some coarse breath sounds noted in the left posterior lung field. No fine crackles are heard.) - Abdomen Abdomen: Soft, Non tender - Derm Derm: Normal color, Warm and dry - Extremities Extremities: Normal ROM s pain, No edema, No calf tenderness / cord - Neuro Neuro: Alert and oriented X 3, No motor deficit, Normal speech Results - Vitals Vitals: Vital Signs - 24 hr 07/27/22 07/27/22 07/27/22 07:17 07:32 07:37 Temperature 36.6 C Heart Rate 102 H 90 81 Respiratory 24 20 18 Rate Blood Pressure 174/94 H 138/79 H O2 Saturation 98 98 If not protocol : Oxygen Flow, liters/minute 07/27/22 07/27/22 07/27/22 08:24 08:26 10:08 Temperature Heart Rate 74 75 76 Respiratory 16 18 14 Rate Blood Pressure 157/81 H 122/52 L O2 Saturation 87 L 94 87 L If not protocol 2 : Oxygen Flow, liters/minute 07/27/22 10:11 Temperature Heart Rate 82 Respiratory 20 Rate Blood Pressure O2 Saturation 98 If not protocol 2 : Oxygen Flow, liters/minute Oxygen O2 Source [With Activity] Room air O2 Source Nasal cannula Oxygen Flow Rate 2 - EKG (time done) 08:48 Rate: Rate (enter#) (79) Rhythm: NSR, Other (PVCs) [place]: Normal Intervals: Normal [place] Ischemia: Normal ST segments, Non specific changes (lateral leads). No: ST elevation c/w ischemia, ST depression - Labs Labs: Laboratory Tests 07/27/22 07/27/22 07/27/22 07:28 07:28 07:28 WBC 10.8 RBC 3.93 L Hgb 11.8 L Hct 36.2 L MCV 92.1 MCH 30.0 MCHC 32.6 RDW 13.9 Plt Count 244 MPV 10.6 Neut # (Auto) 7.3 H Lymph # (Auto) 2.3 Cassia # (Auto) 0.8 Eos # (Auto) 0.3 Baso # (Auto) 0.0 Absolute Nucleated RBC 0.00 Nucleated RBC % 0.0 Sodium 136 Potassium 3.7 Chloride 93 L Carbon Dioxide 28 Anion Gap 15.0 H BUN 36 H Creatinine 1.6 H Estimated GFR (MDRD) 30 L Glucose 140 H Calcium 10.6 H Magnesium 2.0 Total Bilirubin 0.6 AST 30 ALT 27 Alkaline Phosphatase 83 B-Natriuretic Peptide 137 H Total Protein 7.7 Albumin 4.3 Globulin 3.4 Albumin/Globulin Ratio 1.3 Lipase 47 Nasal Adenovirus (PCR) Nasal B. parapertussis DNA (PCR) Nasal Coronavir 229E PCR Nasal Coronavir HKU1 PCR Nasal Coronavir NL63 PCR Nasal Coronavir OC43 PCR Nasal Enterovir/Rhinovir PCR Nasal Influenza B PCR Nasal Influenza A PCR Nasal Parainfluen 1 PCR Nasal Parainfluen 2 PCR Nasal Parainfluen 3 PCR Nasal Parainfluen 4 PCR Nasal RSV (PCR) Nasal B.pertussis DNA PCR Nasal C.pneumoniae (PCR) Wolf Human Metapneumo PCR Nasal M.pneumoniae (PCR) Nasal SARS-CoV-2 (PCR) 07/27/22 07:40 WBC RBC Hgb Hct MCV MCH MCHC RDW Plt Count MPV Neut # (Auto) Lymph # (Auto) Cassia # (Auto) Eos # (Auto) Baso # (Auto) Absolute Nucleated RBC Nucleated RBC % Sodium Potassium Chloride Carbon Dioxide Anion Gap BUN Creatinine Estimated GFR (MDRD) Glucose Calcium Magnesium Total Bilirubin AST ALT Alkaline Phosphatase B-Natriuretic Peptide Total Protein Albumin Globulin Albumin/Globulin Ratio Lipase Nasal Adenovirus (PCR) NOT DETECTED Nasal B. parapertussis DNA (PCR) NOT DETECTED Nasal Coronavir 229E PCR NOT DETECTED Nasal Coronavir HKU1 PCR NOT DETECTED Nasal Coronavir NL63 PCR NOT DETECTED Nasal Coronavir OC43 PCR NOT DETECTED Nasal Enterovir/Rhinovir PCR DETECTED A Nasal Influenza B PCR NOT DETECTED Nasal Influenza A PCR NOT DETECTED Nasal Parainfluen 1 PCR NOT DETECTED Nasal Parainfluen 2 PCR NOT DETECTED Nasal Parainfluen 3 PCR NOT DETECTED Nasal Parainfluen 4 PCR NOT DETECTED Nasal RSV (PCR) NOT DETECTED Nasal B.pertussis DNA PCR NOT DETECTED Nasal C.pneumoniae (PCR) NOT DETECTED Wolf Human Metapneumo PCR NOT DETECTED Nasal M.pneumoniae (PCR) NOT DETECTED Nasal SARS-CoV-2 (PCR) NOT DETECTED - Rads (name of study) chest xray Radiology: Prelim report reviewed, EMP read indepedently (no noted infiltrates. No appearance of CHF. ), See rad report PD Medical Decision Making - ED course Complexity details: re-evaluated patient (The patient is feeling better with breathing after nebulizer treatments. Consideration of viral only versus viral and bacterial infection. Given antibiotics. Off oxygen she desaturated still to 87 to 88% while resting. Returned to oxygen at 2 L nasal cannula.), considered differential (The patient has upper respiratory symptoms for 4 to 5 days and significantly worse last night into this morning. Significant congestion and cough as well as wheezing. Hypoxic at home. We will check chest x-ray as well as evaluate for heart failure and basic blood test.), d/w patient, d/w edi consultant (I we will discuss with the hospitalist and the patient does meet hospitalization criteria based on hypoxia without known prior oxygen requirement with lower respiratory infection and wheezing.) Reviewed Lab Results: Your chest x-ray does not show any obvious pneumonia/infiltrates. It does not appear consistent with CHF either. Her BNP is minimally elevated as well. This seems to be predominantly a respiratory illness with wheezing and hypoxia. Presume a viral effect with bronchial inflammation but given the timing and now worsening, consider secondary bacterial infection as well. Social Determinants of Health: The patient has a POLST form which states limited interventions. I did discuss the current ideas on the treatment plan. They do confirm they would not want i ntubation, central line, vasopressors, and certainly no CPR. ED course: The patient was given nebulizer treatment on route by EMS and steroids as well. She was given another nebulizer treatment here. She states she is feeling improvement in her breathing. However off oxygen she did decrease down to 87% on room air. It supplements to 96% with just 2 L nasal cannula. Her work of breathing is improved. I did confirm with the patient and her daughter the POLST status of DNR/DNI. I reviewed the potential treatments of nebulizers with steroids and consider antibiotic. If remaining hypoxic then short-term hospitalization. They are both agreeable to those and would desire those interventions. - Consults Consults: Consulted (name) (Hospitalist) Departure - Departure Disposition: ED Place in Observation Clinical Impression: Hypoxia, Lower respiratory infection (e.g., bronchitis, pneumonia, pneumonitis, pulmonitis), Wheezing Condition: Stable Record reviewed to determine appropriate education?: Yes Discharge Date/Time: 07/27/22 14:50
[2022-07-27] MEDS ORDERED: guaiFENesin 100 MG/5 ML UDC PO STA (07:21)
[2022-07-27 07:37] LABS: BASOPHILS % (AUTO) 0.4 %; EOSINOPHILS # (AUTO) 0.3 10^3/uL (0.0-0.7); EOSINOPHILS % (AUTO) 2.6 %; HCT - HEMATOCRIT 36.2 % (37.0-47.0); HGB - HEMOGLOBIN 11.8 g/dL (12.0-16.0); LYMPHOCYTES # (AUTO) 2.3 10^3/uL (1.5-3.5); LYMPHOCYTES % (AUTO) 21.5 %; MEAN CORPUSCULAR HGB CONC 32.6 g/dL (32.0-36.0); MEAN CORPUSCULAR VOLUME 92.1 fL (81.0-99.0); MEAN PLATELET VOLUME 10.6 fL (7.9-10.8); MONOCYTES # (AUTO) 0.8 10^3/uL (0.0-1.0); MONOCYTES % (AUTO) 7.7 %; NEUTROPHILS # (AUTO) 7.3 10^3/uL (1.5-6.6); NEUTROPHILS % (AUTO) 67.4 %; PLT - PLATELET COUNT 244 10^3/uL (130-450); RED BLOOD COUNT 3.93 10^6/uL (4.20-5.40); RED CELL DISTRIBUTION WIDTH 13.9 % (12.0-15.0); WHITE BLOOD COUNT 10.8 x10^3/uL (4.8-10.8)
[2022-07-27 07:46] LABS: ALBUMIN 4.3 g/dL (3.2-5.5); ALBUMIN/GLOBULIN RATIO 1.3 (1.0-2.2); BILIRUBIN,TOTAL 0.6 mg/dL (0.2-1.0); CALCIUM 10.6 mg/dL (8.5-10.3); CREATININE 1.6 mg/dL (0.4-1.0); POTASSIUM 3.7 mmol/L (3.5-5.0); TOTAL PROTEIN 7.7 g/dL (6.7-8.2)
--- NOTE | 2022-07-27 08:07 | XRAY Report ---
PROCEDURE: Chest 1 View X-Ray INDICATIONS: chest pain TECHNIQUE: One view of the chest was acquired. COMPARISON: Chest x-ray 08-05 FINDINGS: Surgical changes and devices: Thoracolumbar fixation rods as well as partially visualized cervical f ixation screws. Lungs and pleura: No pleural effusions or pneumothorax. Lungs are clear. Mediastinum: Mediastinal contours appear normal. Heart size is mildly prominent. Bones and chest wall: No suspicious bony lesions. Overlying soft tissues appear unremarkable. IMPRESSION: No acute pulmonary process. Reviewed by: Emily Good MD on 07/27/2022 8:06 AM [facility] Approved by: Emily Good MD on 07/27/2022 8:06 AM [facility] Station ID: [id number]
[2022-07-27 08:47] LABS: B. PARAPERTUSSIS- RESP PCR PAN NOT DETECTED; B. PERTUSSIS- RESP PCR PANEL NOT DETECTED; C. PNEUMONIAE- RESP PCR PANEL NOT DETECTED; CORONAVIRUS 229E-RESP PCR NOT DETECTED; CORONAVIRUS HKU1-RESP PCR NOT DETECTED; CORONAVIRUS NL63-RESP PCR NOT DETECTED; CORONAVIRUS OC43-RESP PCR NOT DETECTED; HUMAN METAPNEUMOVIRUS NOT DETECTED; INFLUENZA A- RESP PCR PANEL NOT DETECTED; INFLUENZA B - RESP PCR PANEL NOT DETECTED; M. PNEUMONIAE- RESP PCR PANEL NOT DETECTED; PARAINFLUENZA VIRUS 1 NOT DETECTED; PARAINFLUENZA VIRUS 2 NOT DETECTED; PARAINFLUENZA VIRUS 3 NOT DETECTED; PARAINFLUENZA VIRUS 4 NOT DETECTED; RHINOVIRUS/ENTEROVIRUS DETECTED; RSV- RESP PCR PANEL NOT DETECTED; SARS-CoV-2 -RESP PCR PANEL NOT DETECTED
[2022-07-27] MEDS ORDERED: ALBUTEROL NEB 2.5 MG/3 ML INH STA (09:06)
[2022-07-27] MEDS ORDERED: ALBUTEROL NEB 2.5 MG/3 ML INH ONE (09:29)
[2022-07-27] MEDS ORDERED: AMOX/CLAV 875 MG/125 MG TABLET PO STA (09:50)
[2022-07-27] MEDS ORDERED: ACETAMINOPHEN 325 MG TABLET PO PRN (11:35)
[2022-07-27] MEDS ORDERED: SODIUM CHLORIDE FLUSH 0.9% 10 ML SYRINGE IVP PRN (11:35)
[2022-07-27] MEDS ORDERED: oxyCODONE 5 MG TABLET PO PRN (11:35)
[2022-07-27] MEDS ORDERED: ONDANSETRON 4 MG/2 ML VIAL IVP PRN (11:35)
[2022-07-27] MEDS ORDERED: ONDANSETRON ODT 4 MG TABLET TL PRN (11:35)
[2022-07-27] MEDS ORDERED: PROCHLORPERAZINE 10 MG/2 ML VIAL IVP PRN (11:35)
[2022-07-27] MEDS ORDERED: ALBUTEROL NEB 2.5 MG/3 ML INH PRN (11:39)
[2022-07-27] MEDS ORDERED: methylPREDNISolone 4 MG TABLET PO SCH ×2 (12:00→13:00)
--- NOTE | 2022-07-27 14:30 | PHARMACY PROGRESS NOTE ---
- Best Possible Medication History Admit Date and Time: 07/27/22 1135 Processed by: Pharmacy Medication History completed: Yes Patient Interview: Pt unable to participate Secondary Source(s): Physician records, Pharmacy records, Insurance records As the person ultimately responsible for medication therapy, providers are able to order a medication from an existing home medication list in [facility] via the "Reconcile Routine" prior to Confirmation of that medication by family support coordinator. Such practice is discouraged except when the physician, in their clinical judgment, deems that a medical need exists for a medication without regard to previous use.
--- NOTE | 2022-07-27 16:19 | HISTORY & PHYSICAL EXAMINATION ---
Chief Complaint - Chief Complaint Chief Complaint: Acute respiratory failure with hypoxia <Roosevelt Quesada - Last Filed: 07/27/22 18:17> History of Present Illness - Admitted From Admitted From:: [facility] emergency department <Roosevelt Quesada - Last Filed: 07/27/22 18:17> - History Obtained From Records Reviewed: Julisa and Autumn History obtained from: ER doctor and Patient Exam Limitations: none <Nadia Waldron - Last Filed: 07/28/22 07:50> - History of Present Illness HPI Comment/Other: Patient is a 87 year old female who presented to the Emergency department for acute respiratory failure that had 88% oxygen on room air. Patients vitals has stabilized since being admitted to hospital and started on 2lpm nasal canula. Patient's states that her symptoms started approximately 5 days ago and have progressively worsened since then. Patient confirms confusion, hallucinations, malaise, chills, generalized weakness, congestion and shortness of breath. Patient denies fever, rhinorrhea, sore throat, chest pain, palpiations, edema, abdominal pain, nausea, vomiting, and diarrhea. Patient reports last bowel movement 07/26/2022 and reports flatulence. Patients medications were continued at home doses for PE, DVT, A-fib, HTN, Asthma, increased cholesterol levels, hypothyroidism and hypertension. Patient is no longer in acute respiratory failure and is able to provide a detailed history of events. (Wilmer Quesada camryn) She has been ill for a few days with increasing fatigue, cough, chest congestion and sinus congestion but denies sore throat. No real fever. She has a history of asthma with allergies. She rarely uses an inhaler and is not on home oxygen. She is a non-smoker. She is usually a very independent person who completes her activities of daily living and still drives a car. Today her shortness of breath became so severe that she was brought in by ambulance. She denies any GI review of systems with this. She is vaccinated against COVID. When the ambulance brought her and she was 98% on room air with a blood pressure of 174/94. She received treatment in the ambulance rig with Solu-Medrol and a bronchodilator. After receiving more bronchodilators in the ER she had prolonged and expiratory phase and increased work of breathing. She was not able to complete full sentences. But she was able to answer appropriately. She had generalized expiratory wheezing with prolonged and expiratory phase. Coarse breath sounds noted in the left posterior lung field. In spite of treatment in the ER, she continued to be hypoxic and required 2 L nasal cannula to maintain O2 sats above 87%. Chest x-ray was clear for pneumonia. Her PCR panel to make sure she did not have COVID was positive for rhinovirus. Because of hypoxia, the ER provider reached out to our hospital service. We discussed the case with regards to criteria. If it was a simple viral infection she would not be admitted. However the new hypoxemia in the event of asthma and increased work of breathing, unresponsive to treatment in the ER has may be decided to place her in observation and see if she responds overnight. (Nadia Waldron) History - Past Medical History Cardiovascular: reports: Hypertension, High cholesterol, Deep vein thrombosis, Pulmonary embolism, Atrial fibrillation Respiratory: reports: Asthma, Shortness of breath Neuro: reports: None Endocrine/Autoimmune: reports: HyPOthyroidism GI: reports: Other [employer]ESTER: reports: None : reports: Incontinence, Nocturia HEENT: reports: Chronic vision loss Psych: reports: None Musculoskeletal: reports: Osteoarthritis, Chronic back pain Derm: reports: None MRSA Hx?: No - Past Surgical History General: reports: Colonoscopy, EGD Ortho: reports: Spine surgery /CH[employer]ESTER: reports: Hysterectomy, Oophrectomy - Family & Social History Family History: Mother: , Father: Family History Comment/Other: Mother with no known diseases, father with heart disease. 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 [place] She has 2 grown daughters, both are relatively close by. She was 2 times, the last time about 20 years ago. She request to be a DNR. - Substance History Use: Uses substance without health or social issues: NONE - POLST Patient has POLST: No POLST Status: DNR (comfort measures; limited abx.) <Roosevelt Quesada - Last Filed: 07/27/22 18:17> Meds/Allgy <Roosevelt Quesada - Last Filed: 07/27/22 18:17> <WaldronNadia Tayla - Last Filed: 07/28/22 07:50> - Home Medications Home Medications: Ambulatory Orders Medication Instructions Recorded Confirmed Gabapentin 600 mg PO QID 11/13/13 07/27/22 Multivitamin [Theragran] 1 tab PO DAILY 08/04/17 07/27/22 methocarbamoL [Methocarbamol] 500 mg PO BID PRN 08/04/17 07/27/22 Acetaminophen [Tylenol] 650 mg PO Q4HR PRN #30 tablet 08/07/17 07/27/22 Calcium Carbonate/Vitamin D3 1 tab PO DAILY 03/21/20 07/27/22 [Calcium 600-Vit D3 800 Caplet] Furosemide 20 mg PO MOWEFR@0900 03/21/20 07/27/22 Metoprolol Succinate [Toprol Xl] 12.5 mg PO QPM 05/01/20 07/27/22 Apixaban [Eliquis] 2.5 mg PO BID 07/27/22 07/27/22 Cholecalciferol [Vitamin D3] 50 mcg PO DAILY 07/27/22 07/27/22 Furosemide [Lasix] 10 mg PO SUTUTHSA@0900 07/27/22 07/27/22 Levothyroxine [Synthroid] 25 mcg PO QDAC 07/27/22 07/27/22 Rosuvastatin Calcium [Crestor] 10 mg PO QPM 07/27/22 07/27/22 - Allergies Allergies/Adverse Reactions: Allergies Allergy/AdvReac Type Severity Reaction Status Date / Time Sulfa (Sulfonamide Allergy Intermediate Hives Verified 07/27/22 07:17 Antibiotics) clarithromycin [From Biaxin] Allergy Dizziness Verified 07/27/22 07:17 Review of Systems - Constitutional Constitutional: reports: Fatigue, Chills, Malaise. denies: Fever - Ears, Nose & Throat Ears, Nose & Throat: reports: Nasal congestion. denies: Sore throat - Respiratory Respiratory: reports: Cough, Wheezing, SOB with exertion - Gastrointestinal Gastrointestinal: denies: Constipation, Diarrhea, Change in bowel habits, Nausea - Genitourinary Genitourinary: denies: Hematuria - Musculoskeletal Musculoskeletal: reports: Stiffness (Lower back stiffness). denies: Joint swelling - Integumentary Integumentary: denies: Rash, Pruritis - Neurological Neurological: denies: Headache, Dizziness - Psychiatric Psychiatric: reports: Hallucinations (Patient states that she had hallucinations in the morning of admission.) <Wilmer Quesadadro - Last Filed: 07/27/22 18:17> Exam - Vital Signs Reviewed Vital Signs: Yes - Physical Exam General Appearance: positive: Alert, Mild distress (Patient has difficulty breathing due to COPD exacerabation.) Eyes Bilateral: positive: Normal inspection ENT: positive: ENT inspection nml, No signs of dehydration Neck: positive: Nml inspection, No JVD Respiratory: positive: Chest non-tender, Rhonchi. negative: No respiratory distress, Breath sounds nml Cardiovascular: positive: Regular rate & rhythm, No murmur, No gallop. negative: Bradycardia, JVD present Peripheral Pulses: positive: 2+ Abdomen: positive: Non-tender, Nml bowel sounds, No distention (Outpouching of bowels on patients right side following back surgery in 2014.). negative: Tenderness, Abnml bowel sounds Rectal: positive: Non-tender Back: positive: Nml inspection Skin: positive: Color nml, No rash, Warm. negative: Diaphoresis, Skin rash Extremities: positive: Nml appearance, No pedal edema Neurologic/Psychiatric: positive: Oriented x3, Mood/affect nml. negative: Disoriented to person, Slurred/abnml speech, Depressed mood/affect <Wilmer Quesadadro - Last Filed: 07/27/22 18:17> - Physical Exam General Appearance: positive: Other (She is still mildly tachypneic, and cannot complete full sentences. Exam interrupted by frequent, deep, phlegmy bronchitic cough.) Respiratory: positive: Other (Deep rhonchi at left midlung and anterior left midlung, right lung clear. No wheezing by the time she had MedSurg but she does have prolonged and exhalation) <Nadia Waldron - Last Filed: 07/28/22 07:50> - Vital Signs Vital Signs: Vital Signs x48h Temp Pulse Pulse Resp BP Pulse Ox O2 Flow Rate 07/28/22 07:19 88 16 1 07/28/22 05:39 37 C 74 18 115/52 L 98 1 07/28/22 00:00 37.2 C 83 18 129/57 L 96 1 Conclusion/Plan - Problem List (1) Acute respiratory failure with hypoxia Conclusion/Plan: Patient presents with mild distress due to difficulty breathing and shortness of breath. Patient confirms malaise, chills, congestion, and generalized weakness. Patient denies fever. Plan: Ensure adequate oxygenation with 2lpm nasal cannula. Monitor patients oxygen levels and ensure stable airway. Start methylprednisolone 4mg medication Continue albuterol therapy from home. Continue albuterol/ipratropium medication from home. (2) Asthma exacerbation Conclusion/Plan: Acute exacerbation of asthma most likely due to viral etiology. Patient presentation of malaise and chills is further suggestive of this diagnosis.Patients home dose of medications given. Plan: Continue patients albuterol/ipratropium medication. Continue patients albuterol medication Start methylprednisolone 4mg medication. Monitor patient oxygen level and start 2lpm nasal cannula. Qualifiers: Asthma severity: mild Asthma persistence: persistent Qualified Code(s): J45.31 - Mild persistent asthma with (acute) exacerbation (3) Viral syndrome Conclusion/Plan: Patients presentation of malaise and chills with no fever is suggestive of this diagnosis. Plan: Ensure adequate hydration with IV fluids Monitor oxygen level and respiratory rate. (4) Atrial fibrillation Conclusion/Plan: Patient has a history of atrial fibrillation that is treated with apixaban and metroprolol. Patient is not presenting symptoms of afib during inpatient visit and is in sinus rhythm. Plan Continue patients home dose of apixaban Continue patients home dose of metroprolol Monitor patients vital signs every 8 hours. Qualifiers: Atrial fibrillation type: paroxysmal Qualified Code(s): I48.0 - Paroxysmal atrial fibrillation (5) Congestive heart failure Conclusion/Plan: Patients has a history of congestive heart failure, however, patient presentation does not suggest that CHF is a current problem. Patient does not have JVD, decreased breath sounds, and lower extremity edema. Patients presentation is suggestive of cor pulmonale. Plan: Continue patients home dose of furosemide. Continue patients home dose of rosuvastitin. Continue patients home dose of metroprolol succinate Monitor patients vitals every 8 hours Qualifiers: Heart failure type: diastolic Heart failure chronicity: chronic Qualified Code(s): I50.32 - Chronic diastolic (congestive) heart failure (6) Cor pulmonale, chronic Conclusion/Plan: Patient has a history of cor pulmonale, however, patients presentation does not suggest that this is a current exacerbation of symptoms. Patient does not have JVD and lower extremity edema. Plan: Continue patients home dose of furosemide. Continue patients home dose of metroprolol Monitor patients vitals every 8 hours - Lab Results Lab results reviewed: Yes Ralph Clay: 07/27/22 07:28 07/27/22 07:28 <Roosevelt Quesada - Last Filed: 07/27/22 18:17> - Problem List (1) Acute respiratory failure with hypoxia Conclusion/Plan: This patient presents with a mild viral syndrome. PCR is positive for rhinovirus. My impression is that she has mild asthma at home for which she infrequently uses her bronchodilators. She uses [id number] allergy medi cations. However this viral syndrome is resulted in a deep chest cough, worsening of her asthma, and low-grade hypoxemia that is new for her. I will place her in observation status and treat her with oxygen, albuterol every 2 hours, as needed. DuoNeb 4 times a day., Medrol Dosepak. - Lab Results Lab results reviewed: Yes Ralph Clay: 07/27/22 07:28 07/27/22 07:28 - Diagnostic Imaging Results Diagnostic Imaging Results: positive: Final report reviewed (Chest x-ray is without acute cardiopulmonary process) <Nadia Waldron - Last Filed: 07/28/22 07:50> Core Measures - Anticipated LOS I expect patient to be DC'd or transferred within 96 hours.: Yes - DVT/VTE - Prophylaxis VTE/DVT Prophylaxis med ordered at admit?: Yes <Roosevelt Quesada - Last Filed: 07/27/22 18:17> - Anticipated LOS I expect patient to be DC'd or transferred within 96 hours.: Yes - DVT/VTE - Prophylaxis VTE/DVT Prophylaxis med ordered at admit?: Yes <Nadia Waldron - Last Filed: 07/28/22 07:50>
[2022-07-27] MEDS: IPRATROPIUM/ALBUTEROL 3 ML NEB INH SCH (22:30)
[2022-07-28] MEDS: SODIUM CHLORIDE FLUSH 0.9% 10 ML SYRINGE IVP SCH ×4 (00:10→21:16)
[2022-07-28] MEDS: IPRATROPIUM/ALBUTEROL 3 ML NEB INH SCH ×4 (07:17→18:11)
[2022-07-28] MEDS ORDERED: methylPREDNISolone 4 MG TABLET PO SCH (08:00)
[2022-07-28] MEDS ORDERED: methocarbamoL 500 MG TABLET PO PRN (14:13)
--- NOTE | 2022-07-28 15:01 | PROVIDER PROGRESS NOTE ---
Subjective - Prog Note Date Prog Note Date: 07/28/22 Prog Note Time: 16:27 - Subjective Pt reports feeling: Improved (Patient oxygen level has improved on room air since admission. Patient SpO2 was 95% at 1625 07/28/2022. However patient states that she is worried about a "panting" episode she had in the morning and around 1400 when RT was visiting.) Subjective: Patient is a 87 year old female that presents with improving acute respiratory failure with hypoxia. Patient was at 95% on room air with no difficult breathing. Patient states that she is feeling better with current care. Patient confirms cough w/ production, congestion, shortness of breath (improved since yesterday) and "panting". Patient denies fever, chest pain, headache, nausea, vomiting, and diarrhea. Patient is able to take deep breaths with minimal coughi ng and is able to use the restroom without becoming short of breath. Patient is able to speak without pausing for breath. Due to morning event of hypoxia, patient will remain in hospital until cleared by . Current Medications - Current Medications Current Medications: Active Medications Acetaminophen (Acetaminophen 325 Mg Tablet) 650 mg PO Q4HR PRN PRN Reason: Pain 1 to 4, or Fever Last Admin: 07/28/22 00:10 Dose: 650 mg Albuterol (Albuterol Neb 2.5 Mg/3 Ml) 2.5 mg INH Q2HR PRN PRN Reason: Wheezing Albuterol/Ipratropium (Ipratropium/Albuterol 3 Ml Neb) 3 ml INH RTQ6H KENNY Last Admin: 07/28/22 14:03 Dose: 3 ml Apixaban (Apixaban 2.5 Mg Tablet) 2.5 mg PO BID KENNY Atorvastatin Calcium (Atorvastatin 10 Mg Tablet) 20 mg PO QPM KENNY Calcium Carbonate/Glycine (Calcium Carb (Oyster Shell) 500 Mg Tablet) 500 mg PO DAILY KENNY Cholecalciferol (Cholecalciferol 25 Mcg Tablet) 50 mcg PO DAILY KENNY Furosemide (Furosemide 20 Mg Tablet) 20 mg PO MOWEFR@0900 KENNY Gabapentin (Gabapentin 300 Mg Capsule) 600 mg PO QID KENNY Guaifenesin (Guaifenesin 600 Mg Tablet) 600 mg PO BID KENNY Levothyroxine Sodium (Levothyroxine 25 Mcg Tablet) 25 mcg PO QDAC KENNY Methocarbamol (Methocarbamol 500 Mg Tablet) 500 mg PO BID PRN PRN Reason: Cramps Methylprednisolone (Methylprednisolone 4 Mg Tablet) 16 mg PO DAILYWM [facility] Stop: 07/29/22 08:01 Methylprednisolone (Methylprednisolone 4 Mg Tablet) 12 mg PO DAILYWM [facility] Stop: 07/30/22 08:01 Methylprednisolone (Methylprednisolone 4 Mg Tablet) 8 mg PO DAILYWM [facility] Stop: 07/31/22 08:01 Methylprednisolone (Methylprednisolone 4 Mg Tablet) 4 mg PO DAILYWM [facility] Stop: 08/01/22 08:01 Metoprolol Succinate (Metoprolol Succinate 25 Mg Tablet) 12.5 mg PO QPM [facility] Multivitamins (Multivitamin Tablet) 1 tab PO DAILY [facility] Ondansetron HCl (Ondansetron Odt 4 Mg Tablet) 4 mg TL Q6HR PRN PRN Reason: Nausea / Vomiting Ondansetron HCl (Ondansetron 4 Mg/2 Ml Vial) 4 mg IVP Q6HR PRN PRN Reason: Nausea / Vomiting Oxycodone HCl (Oxycodone 5 Mg Tablet) 5 mg PO Q4HR PRN PRN Reason: Pain 5 to 7 Prochlorperazine Edisylate (Prochlorperazine 10 Mg/2 Ml Vial) 10 mg IVP Q6HR PRN PRN Reason: Nausea / Vomiting Sodium Chloride (Sodium Chloride Flush 0.9% 10 Ml Syringe) 10 ml IVP PRN PRN PRN Reason: NEEDED PER PROVIDER ORDERS Sodium Chloride (Sodium Chloride Flush 0.9% 10 Ml Syringe) 10 ml IVP 0100,0900,1700 [facility] Last Admin: 07/28/22 08:49 Dose: 10 ml Gabapentin 600 mg PO QID 11/13/13 Multivitamin [Theragran] 1 tab PO DAILY 08/04/17 methocarbamoL [Methocarbamol] 500 mg PO BID PRN 08/04/17 Calcium Carbonate/Vitamin D3 [Calcium 600-Vit D3 800 Caplet] 1 tab PO DAILY 03/21/20 Furosemide 20 mg PO MOWEFR@0900 03/21/20 Metoprolol Succinate [Toprol Xl] 12.5 mg PO QPM 05/01/20 Apixaban [Eliquis] 2.5 mg PO BID 07/27/22 Cholecalciferol [Vitamin D3] 50 mcg PO DAILY 07/27/22 Furosemide [Lasix] 10 mg PO SUTUTHSA@0900 07/27/22 Levothyroxine [Synthroid] 25 mcg PO QDAC 07/27/22 Rosuvastatin Calcium [Crestor] 10 mg PO QPM 07/27/22 Objective - Vital Signs/Intake & Output Vital Signs: Vital Signs x48h Temp Pulse Pulse Pulse Resp BP Pulse Ox 07/28/22 14:24 97 07/28/22 14:09 37.0 C 67 20 116/61 97 07/28/22 14:04 75 20 07/28/22 08:57 07/28/22 08:56 88 24 87 L 07/28/22 08:51 88 98 07/28/22 08:43 07/28/22 08:42 37.1 C 99 24 98 07/28/22 08:00 37.0 C 91 20 119/51 L 97 07/28/22 07:30 07/28/22 07:19 88 16 O2 Flow Rate 07/28/22 14:24 0 07/28/22 14:09 0.5 07/28/22 14:04 1 07/28/22 08:57 0.5 07/28/22 08:56 0 07/28/22 08:51 0 07/28/22 08:43 0.5 07/28/22 08:42 1 07/28/22 08:00 1 07/28/22 07:30 1 07/28/22 07:19 1 Intake & Output: Intake & Output 07/25/22 07/26/22 07/27/22 07/28/22 23:59 23:59 23:59 23:59 Intake Total 690 Balance 690 - Objective General Appearance: positive: Alert (Patient alert to time and place. Patient had a plesant affect and was sitting in chair during visit. Patient appears to be a good historian.), Anxious (Patient states that she has had a "panting" episode that lasted several seconds twice today. Patient denies chest pain and tightness.) Eyes Bilateral: positive: Normal inspection, PERRL ENT: positive: ENT inspection nml Neck: positive: Nml inspection, No JVD Respiratory: positive: Chest non-tender, No respiratory distress (Stable on room air and sitting on chair.), Rhonchi (Improved from yesterday) Cardiovascular: positive: Regular rate & rhythm, No murmur, No gallop Abdomen: positive: Non-tender, Nml bowel sounds, Other (Intestines shifted to right side since back surgery in 2015) Rectal: positive: Non-tender Skin: positive: Color nml, No rash, Warm Extremities: positive: Non-tender, No pedal edema - Lab Results Fish Bones: 07/27/22 07:28 07/27/22 07:28 ABX Reporting Has patient been on IV antibiotics over the past 48 hours?: No Assessment/Plan - Problem List (1) Acute respiratory failure with hypoxia Impression: Patient presents with no respiratory distress and no shortness of breath while sitting on chair. Patient states that she has sudden "panting" attacks that last several seconds then go away. Patient confirms congestion. Patient denies malaise, chills, and fever. Plan: Strongly consider discharge from facility tomorrow. Continue to monitor patient on room air and monitor oxygen level. Continue patients home medication regimen. Continue methylprednisolone medication Continue albuterol and albuterol/ipratropium medication from home. (2) Asthma exacerbation Impression: Asthma exacerbation seem to have improved dramatically since yesterday. Patient confirms congestion. Patient denies cough with production, malaise, chills and shortness of breath. Plan: Continue patients albuterol and albuterol/ipratropium home medication regimen. Continue methylprednisolone medication. Continue to monitor patient oxygen level and respiratory rate every 8 hours on room air. Qualifiers: Asthma severity: mild Asthma persistence: persistent Qualified Code(s): J45.31 - Mild persistent asthma with (acute) exacerbation (3) Viral syndrome Impression: Patient's symptoms have improved drastically since yesterdays admission. Patient denies malaise and chills. Patient will likely be discharged tomorrow. Plan: Monitor oxygen levels and respiratory rates. Ensure adequate hydration PO. (4) Atrial fibrillation Impression: Patient presents with no symptoms of atrial fibrillation that is treated with apixaban and metroprolol. Patient denies chest pain and chest tightness. No signs of stroke or PE. PE revealed no murmurs, JVD, and edema. Plan: Continue patients home dose of apixaban and metroprolol Monitor patients vitals signs every 8 hours Qualifiers: Atrial fibrillation type: paroxysmal Qualified Code(s): I48.0 - Paroxysmal atrial fibrillation (5) Congestive heart failure Impression: Patient presents with a history of CHF, however, patient does not present with current CHF exacerbation. Patient does not have JVD, decreased breath sounds, and lower extremity edema. Patient presentation is suggestive of cor pulmonale Plan: Continue patients home dose of furosemide Continue patients home dose of rosuvastatin Continue patients home dose of metroprolol succinate Monitor patients vitals every 8 hours Qualifiers: Heart failure type: diastolic Heart failure chronicity: chronic Qualified Code(s): I50.32 - Chronic diastolic (congestive) heart failure (6) Cor pulmonale, chronic Impression: Patient presents with a history of cor pulmonale, however, patients presentation does not suggest exacerbation of symptoms. Patient does not have JVD and lower extremity edema. Plan: Continue patients home dose of furosemide Continue patients home dose of metroprolol Monitor patients vitals every 8 hours
[2022-07-28] MEDS: GABAPENTIN 300 MG CAPSULE PO SCH ×2 (17:09→21:15)
[2022-07-28] MEDS ORDERED: ATORVASTATIN 10 MG TABLET PO SCH (21:00)
[2022-07-28] MEDS ORDERED: METOPROLOL SUCCINATE 25 MG TABLET PO SCH (21:00)
[2022-07-28] MEDS: guaiFENesin 600 MG TABLET PO SCH (21:16)
[2022-07-28] MEDS: APIXABAN 2.5 MG TABLET PO SCH (21:16)
[2022-07-29] MEDS ORDERED: LEVOTHYROXINE 25 MCG TABLET PO SCH (07:00)
[2022-07-29] MEDS: IPRATROPIUM/ALBUTEROL 3 ML NEB INH SCH ×2 (07:17→07:18)
[2022-07-29] MEDS ORDERED: methylPREDNISolone 4 MG TABLET PO SCH (08:00)
[2022-07-29] MEDS ORDERED: CALCIUM CARB (OYSTER SHELL) 500 MG TABLET PO SCH (09:00)
[2022-07-29] MEDS ORDERED: CHOLECALCIFEROL 25 MCG TABLET PO SCH (09:00)
[2022-07-29] MEDS: guaiFENesin 600 MG TABLET PO SCH ×2 (09:00→09:02)
[2022-07-29] MEDS ORDERED: MULTIVITAMIN TABLET PO SCH (09:00)
[2022-07-29] MEDS: APIXABAN 2.5 MG TABLET PO SCH (09:01)
[2022-07-29] MEDS: SODIUM CHLORIDE FLUSH 0.9% 10 ML SYRINGE IVP SCH (09:02)
[2022-07-29] MEDS: GABAPENTIN 300 MG CAPSULE PO SCH ×2 (09:06→14:57)
--- NOTE | 2022-07-29 11:12 | DISCHARGE SUMMARY ---
"Discharge Summary Discharge Date: 07/29/22 Code Status: Attempt Resuscitation Condition at Discharge: Stable Discharge Disposition: 01 Home, Self Care - DIAGNOSES Admission Diagnoses: 1. Acute respiratory failure with hypoxia 2. Asthma exacerbation 3. Viral syndrome 4. Atrial fibrillation 5. Congestive heart failure Discharge Diagnoses with Status of Each Condition: 1. Acute respiratory failure with hypoxia- resolved, oxygen level 95% on room air. No signs of respiratory distress 2. Asthma exacerbation, mild persistent- resolved, no signs of wheezing and chest tightness. Patient to be sent home with tapered methylprednisolone, and JOSÉ ANTONIO. 3. Viral syndrome- Resolved, no signs of malaise, chills, and respiratory distress. Patient educated on importance of hydration and rest. 4. Atrial fibrillation- Stable, Continue on anticoagulant and metroprolol as directed by PCP. 5. Congestive heart failure- Stable, no signs of edema, JVD, or sudden weight gain. - HPI History of Present Illness: Patient is a 87 year old female who presented to the Emergency department for acute respiratory failure that had 88% oxygen on room air. Patients vitals has stabilized since being admitted to hospital and started on 2lpm nasal canula. Patient's states that her symptoms started approximately 5 days ago and have progressively worsened since then. Patient confirms confusion, hallucinations, malaise, chills, generalized weakness, congestion and shortness of breath. Blaine haddad denies fever, rhinorrhea, sore throat, chest pain, palpiations, edema, abdominal pain, nausea, vomiting, and diarrhea. Patient reports last bowel movement 07/26/2022 and reports flatulence. Patients medications were continued at home doses for PE, DVT, A-fib, HTN, Asthma, increased cholesterol levels, hypothyroidism and hypertension. Patient is no longer in acute respiratory failure and is able to provide a detailed history of events. (Roosevelt Quesada) She has been ill for a few days with increasing fatigue, cough, chest congestion and sinus congestion but denies sore throat. No real fever. She has a history of asthma with allergies. She rarely uses an inhaler and is not on home oxygen. She is a non-smoker. She is usually a very independent person who completes her activities of daily living and still drives a car. Today her shortness of breath became so severe that she was brought in by ambulance. She denies any GI review of systems with this. She is vaccinated against COVID. When the ambulance brought her and she was 98% on room air with a blood pressure of 174/94. She received treatment in the ambulance rig with Solu-Medrol and a bronchodilator. After receiving more bronchodilators in the ER she had prolonged and expiratory phase and increased work of breathing. She was not able to complete full sentences. But she was able to answer appropriately. She had generalized expiratory wheezing with prolonged and expiratory phase. Coarse breath sounds noted in the left posterior lung field. In spite of treatment in the ER, she continued to be hypoxic and required 2 L nasal cannula to maintain O2 sats above 87%. Chest x-ray was clear for pneumonia. Her PCR panel to make sure she did not have COVID was positive for rhinovirus. Because of hypoxia, the ER provider reached out to our hospital service. We discussed the case with regards to criteria. If it was a simple viral infection she would not be admitted. However the new hypoxemia in the event of asthma and increased work of breathing, unresponsive to treatment in the ER has may be decided to place her in observation and see if she responds overnight. - Past Medical History Cardiovascular: reports: Hypertension, High cholesterol, Deep vein thrombosis, Pulmonary embolism, Atrial fibrillation Respiratory: reports: Asthma, Shortness of breath Neuro: reports: None Endocrine/Autoimmune: reports: HyPOthyroidism GI: reports: Other COMFORT STATION SUPERVISOR: reports: None : reports: Incontinence, Nocturia HEENT: reports: Chronic vision loss Psych: reports: None Musculoskeletal: reports: Osteoarthritis, Chronic back pain Derm: reports: None MRSA Hx?: No - Past Surgical History General: reports: Colonoscopy, EGD Ortho: reports: Spine surgery /COMFORT STATION SUPERVISOR: reports: Hysterectomy, Oophrectomy - CONSULTS | PROCEDURES Procedures: Chest X-ray 08-05, showed no pulmonary process or cardiac enlargement. Medialstinal contours appeared normal and no signs of pleural effusions or pneumothorax. - HOSPITAL COURSE Hospital Course: Patient placed on observation. Chest xray showed no pleural effusions or signs of CHF. Patient was hypoxic on room air when admitted. After oral methyprednisolone, albuterol, and oxygen therapy, patients symptoms improved dramatically. Patient was at 95% oxygen level on room air on day of discharge. Patient was able to talk in full sentences without any signs of respiratory dis tress including pursed lips and pausing to take full breaths, however, patient had one episode of bronchitic cough during visit. Patient should follow up with PCP to ensure resolution of symptoms Discharge temp was 36.5 C, heart rate 76, blood pressure 162/74. Patient respiratory rate was 20 breaths per minute, with no signs of respiratory distress, fever, diaphoresis, or chest tightness. Patient states that she has coughs about once an hour but these appear to be mild. Patient is alert and elodia ented to time and place. Patient has a pleasant affect and is excited to be going home. - ALLERGIES Allergies/Adverse Reactions: Allergies Allergy/AdvReac Type Severity Reaction Status Date / Time Sulfa (Sulfonamide Allergy Intermediate Hives Verified 07/27/22 07:17 Antibiotics) clarithromycin [From Biaxin] Allergy Dizziness Verified 07/27/22 07:17 - MEDICATIONS Home Medications: Ambulatory Orders Medication Instructions Recorded Confirmed Gabapentin 600 mg PO QID 11/13/13 07/27/22 Multivitamin [Theragran] 1 tab PO DAILY 08/04/17 07/27/22 methocarbamoL [Methocarbamol] 500 mg PO BID PRN 08/04/17 07/27/22 Acetaminophen [Tylenol] 650 mg PO Q4HR PRN #30 tablet 08/07/17 07/27/22 Calcium Carbonate/Vitamin D3 1 tab PO DAILY 03/21/20 07/27/22 [Calcium 600-Vit D3 800 Caplet] Furosemide 20 mg PO MOWEFR@0900 03/21/20 07/27/22 Metoprolol Succinate [Toprol Xl] 12.5 mg PO QPM 05/01/20 07/27/22 Apixaban [Eliquis] 2.5 mg PO BID 07/27/22 07/27/22 Cholecalciferol [Vitamin D3] 50 mcg PO DAILY 07/27/22 07/27/22 Furosemide [Lasix] 10 mg PO SUTUTHSA@0900 07/27/22 07/27/22 Levothyroxine [Synthroid] 25 mcg PO QDAC 07/27/22 07/27/22 Rosuvastatin Calcium [Crestor] 10 mg PO QPM 07/27/22 07/27/22 - LABS Result Diagrams: 07/27/22 07:28 07/27/22 07:28 - DIAGNOSTIC IMAGING Diagnostic Imaging Results: Final report reviewed - FOLLOW UP Follow Up: Follow up with primary care provider in 1-2 weeks or sooner if symptoms return."
--- NOTE | 2022-07-29 13:17 | Discharge Plan ---
Discharge Plan Problem Reviewed?: Yes Disposition: Home, Self Care Condition: Stable Prescriptions: methylPREDNISolone [Medrol] 4 mg PO DAILYWM #1 tab methylPREDNISolone [Medrol] 8 mg PO DAILYWM #2 tab methylPREDNISolone [Medrol] 12 mg PO DAILYWM #3 tab Diet: Regular Activity Restrictions: Activity as Tolerated Shower Restrictions: No Driving Restrictions: No Health Concerns: For a few days you started to have increasing chills, fatigue, weakness and you were not eating very well. You then started having confusion and hallucinations. When he started getting very short of breath an ambulance was called and in the emergency room was found to have severe asthma exacerbation. Coughing and wheezing with a low oxygen level. You did not have pneumonia. You did not have COVID. But you did have a viral infection giving you viral bronchitis. Your oxygen level was low and you had a severe cough. You responded very nicely to hydration with intravenous fluids, steroids to reduce the inflammation in your lungs, and bronchodilators to help you with your wheezing. Your oxygen level is now normal. Your cough is controlled. You are now stable enough to return to home. Plan of Treatment: Please see your primary care provider in the next 1 to 2 weeks. I will be sending you home on tapered steroids. Tomorrow you will take 3 tablets. The day after you will take 2 tablets. And on the third day you will take 1 tablet and you will be done with taking steroids. The steroids are for the cough and the wheezing. Care Goals: To return to home, independent living and your baseline status Assessment: Patient is alert, oriented, comfortable. Says that she feels safe at home with her children helping take care of her. She declines any extra medicine for cough suppression, etc. No Smoking: If you smoke, Please STOP! Call for help. Follow-up with: Negrito Wilkerson MD [Primary Care Provider] -
[2022-07-29 15:27] VITALS: BP 133/64
[2022-07-30] MEDS ORDERED: methylPREDNISolone 4 MG TABLET PO SCH (08:00)
[2022-07-30] MEDS ORDERED: FUROSEMIDE 20 MG TABLET PO SCH (09:00)
[2022-07-31] MEDS ORDERED: methylPREDNISolone 4 MG TABLET PO SCH (08:00)
[2022-08-01] MEDS ORDERED: methylPREDNISolone 4 MG TABLET PO SCH (08:00)
== END 2022-07-29 15:35 | disposition home or self-care (01) | DRG 189 ==
LOC: EDUNIT# → ED 07:06 → MS2 11:35 → OBSVTOIN 07-28 14:08
PROVIDERS: ADMIT Specialist; ATTEND Specialist
DX: J96.01 Acute respiratory failure with hypoxia (principal); J45.31 Mild persistent asthma with (acute) exacerbation; B34.8 Other viral infections of unspecified site; I50.32 Chronic diastolic (congestive) heart failure; R44.3 Hallucinations, unspecified; I48.0 Paroxysmal atrial fibrillation; I11.0 Hypertensive heart disease with heart failure; Z20.822 Contact with and (suspected) exposure to COVID-19; I27.81 Cor pulmonale (chronic); R53.1 Weakness; R41.0 Disorientation, unspecified; J20.6 Acute bronchitis due to rhinovirus; E03.9 Hypothyroidism, unspecified; E78.00 Pure hypercholesterolemia, unspecified; R32 Unspecified urinary incontinence; R35.1 Nocturia; Z66 Do not resuscitate; F41.9 Anxiety disorder, unspecified; Z79.01 Long term (current) use of anticoagulants; Z86.718 Personal history of other venous thrombosis and embolism; Z86.711 Personal history of pulmonary embolism
CPT/HCPCS: 36415; 71045; 80053; 83690; 83735; 83880; 85025; 87633; 93005; 94640; 99284; 99285; A9270; G0378; J7509

== ENCOUNTER 2022-08-09 12:30 | Outpatient (CLI) | payer MEDICARE, OTHER ==
--- NOTE | 2022-08-10 11:07 | Mammography Report ---
UNILATERAL LEFT DIGITAL DIAGNOSTIC MAMMOGRAM 3D/2D WITH SPOT COMPRESSION: 08/09/2022 CLINICAL: Patient returns today to evaluate an asymmetry in the left breast. Comparison is made to exams dated: 07/19/2022 mammogram, 03/19/2019 mammogram, and 09/24/2015 mammogram - [facility]. The left breast is extremely dense, which lowers the sensitivity of mammography (category d />75% gla ndular tissue). The possible oval asymmetry in the left breast middle depth lateral region seen on the craniocaudal v iew only is no longer seen and most likely is fibroglandular tissue. No other significant masses or calcifications are seen in the breast. IMPRESSION: INCOMPLETE: NEEDS ADDITIONAL IMAGING EVALUATION An ultrasound is recommended to confirm the no longer seen oval asymmetry in the left breast middle d epth lateral region seen on the craniocaudal view only. This exam was interpreted at Station ID: [id number]. NOTE: For mammograms, a report in lay terms will be sent to the patient. Approximately 15% of breast malignancies will not be visualized mammographically. In the management of a palpable breast mass, a negative mammogram must not discourage biopsy of a clinically suspicious lesion. Electronically Signed By: Matthew douglas/cindy:08/09/2022 15:11:35 ACR BI-RADS Category 0: Incomplete 3340F PARENCHYMAL PATTERN: (VD) - The breast(s) demonstrate(s) extremely dense parenchyma, limiting the sen sitivity of mammography. BI-RADS CATEGORY: (0) - 0 Ultrasound [id number] Immediate follow-up LATERALITY: (L)
--- NOTE | 2022-08-10 11:07 | Ultrasound Report ---
LIMITED ULTRASOUND OF LEFT BREAST: 08/09/2022 CLINICAL: Patient returns today to evaluate an asymmetry in the left breast. Comparison is made to exams dated: 08/09/2022 mammogram, 07/19/2022 mammogram, 03/19/2019 mammogram, and 09/24/2015 mammogram - [facility]. Color flow and real-time ultrasound of the left breast 2-5 o'clock region were performed. Mcdonnell scal e images of the real-time examination were reviewed. There is a possible 1 cm x 1.6 cm x 0.8 cm oval mass in the left breast at 3 o'clock middle depth 3 c m from the nipple. This oval mass is hypoechoic with no posterior acoustic shadowing or enhancement. This correlates as an incidental finding. Color flow imaging demonstrates that there is no increas e in vascularity. There also is a possible 1.4 cm x 1.5 cm x 0.7 cm oval mass with a circumscribed margin in the left b reast at 3 o'clock anterior depth 1 cm from the nipple. This oval mass is hypoechoic. This correlat es as an incidental finding. IMPRESSION: PROBABLY BENIGN The possible 1 cm x 1.6 cm x 0.8 cm oval mass in the left breast at 3 o'clock middle depth has a diff erential diagnosis of dense breast tissue or a fibroadenoma and is probably benign. The possible 1.4 cm x 1.5 cm x 0.7 cm oval mass in the left breast at 3 o'clock anterior depth has a differential diagnosis of dense breast tissue or a fibroadenoma and is probably benign. A follow-up left ultrasound in 6 months is recommended to demonstrate stability. This exam was interpreted at Station ID: [id number]. Electronically Signed By: Matthew Adan M.D. ar/:08/09/2022 15:23:30 Ultrasound BI-RADS: 3 Probably benign BI-RADS CATEGORY: (3) - 3 Ultrasound [id number] 6 month follow-up LATERALITY: (L)
== END 2022-08-09 12:31 | disposition home or self-care (01) ==
LOC: DI 12:30
PROVIDERS: ATTEND Internal Medicine
DX: R92.8 Other abnormal and inconclusive findings on diagnostic imaging of breast (principal)

== ENCOUNTER 2022-11-30 07:28 | Outpatient (CLI) | payer MEDICARE, OTHER ==
[2022-11-30 11:59] LABS: BASOPHILS # (AUTO) 0.1 10^3/uL (0.0-0.1); BASOPHILS % (AUTO) 1.3 %; EOSINOPHILS # (AUTO) 0.4 10^3/uL (0.0-0.7); EOSINOPHILS % (AUTO) 7.9 %; HCT - HEMATOCRIT 34.2 % (37.0-47.0); HGB - HEMOGLOBIN 10.9 g/dL (12.0-16.0); LYMPHOCYTES # (AUTO) 1.5 10^3/uL (1.5-3.5); LYMPHOCYTES % (AUTO) 28.4 %; MEAN CORPUSCULAR HEMOGLOBIN 28.8 pg (27.0-31.0); MEAN CORPUSCULAR HGB CONC 31.9 g/dL (32.0-36.0); MEAN CORPUSCULAR VOLUME 90.5 fL (81.0-99.0); MEAN PLATELET VOLUME 11.3 fL (7.9-10.8); MONOCYTES # (AUTO) 0.5 10^3/uL (0.0-1.0); MONOCYTES % (AUTO) 8.6 %; NEUTROPHILS # (AUTO) 2.8 10^3/uL (1.5-6.6); NEUTROPHILS % (AUTO) 53.6 %; PLT - PLATELET COUNT 241 10^3/uL (130-450); RED BLOOD COUNT 3.78 10^6/uL (4.20-5.40); WHITE BLOOD COUNT 5.2 x10^3/uL (4.8-10.8)
[2022-11-30 12:12] LABS: ESTIMATED AVERAGE GLUCOSE 128 mg/dL (70-100); HEMOGLOBIN A1c% 6.1 % (4.27-6.07)
[2022-11-30 12:21] LABS: THYROID STIMULATING HORMONE 5.3 uIU/mL (0.34-5.60)
[2022-11-30 21:17] LABS: ALBUMIN 4.1 g/dL (3.2-5.5); ALBUMIN/GLOBULIN RATIO 1.5 (1.0-2.2); ALKALINE PHOSPHATASE 58 IU/L (42-121); ALT ALANINE AMINOTRANSFERASE 19 IU/L (10-60); AST ASPARTATE AMINOTRANSFERASE 28 IU/L (10-42); BILIRUBIN,TOTAL 0.5 mg/dL (0.2-1.0); BUN - BLOOD UREA NITROGEN 40 mg/dL (6-20); CARBON DIOXIDE - CO2 32 mmol/L (21-32); CHLORIDE 99 mmol/L (101-111); CHOL/HDL RATIO 1.6 (<4.4); CHOLESTEROL 180 mg/dL; CREATININE 1.7 mg/dL (0.4-1.0); GFR - MDRD 28 (>89); GLUCOSE 96 mg/dL (70-100); HDL CHOLESTEROL 111 mg/dL; LDL CHOLESTEROL,CALCULATED 57 mg/dL; LDL/HDL RATIO 0.5 (<4.4); POTASSIUM 4.5 mmol/L (3.5-5.0); SODIUM 139 mmol/L (135-145); TOTAL PROTEIN 6.8 g/dL (6.7-8.2); TRIGLYCERIDES 62 mg/dL; VLDL CHOLESTEROL 12 mg/dL
== END 2022-11-30 07:29 | disposition home or self-care (01) ==
LOC: LAB.N 07:28
PROVIDERS: ATTEND Internal Medicine
DX: E78.5 Hyperlipidemia, unspecified (principal); R73.03 Prediabetes; E03.9 Hypothyroidism, unspecified; I48.91 Unspecified atrial fibrillation
CPT/HCPCS: 36415; 80053; 80061; 83036; 83721; 84443; 85025

== ENCOUNTER 2023-01-04 08:29 | Emergency (ER) | payer MEDICARE, OTHER ==
--- NOTE | 2023-01-04 09:24 | CT Report ---
PROCEDURE: HEAD WO INDICATIONS: POSEY/BLURRED VISION TECHNIQUE: Noncontrast 4.5 mm thick angled axial sections acquired from the foramen magnum to the vertex. For r adiation dose reduction, the following was used: automated exposure control, adjustment of mA and/or kV according to patient size. COMPARISON: None. FINDINGS: Image quality: Good CSF spaces: Basal cisterns are patent. Lateral ventricles are symmetric. Volume: Vascular calcifications. Periventricular white matter disease is commonly seen with chronic m icroangiopathy. Volume loss is present. These findings are mild to moderate. Brain: No gross loss of jerry-white differentiation. No acute intracranial hemorrhage. Small areas of hypoattenuation around the basal ganglia may represent prior lacunar infarcts. Craniofacial structures: No displaced fracture. Sinuses are clear. Orbits are intact. IMPRESSION: No acute intracranial abnormality. Small areas of basal ganglia hypoattenuation may represent an age- indeterminate prior lacunar infarctions. Consider further evaluation with MRI of the head and/or orbits if clinically desired. Reviewed by: Filipe Arguelles MD on 01/04/2023 9:23 AM PDT Approved by: Filipe Arguelles MD on 01/04/2023 9:23 AM PDT Station ID: [id number]
--- NOTE | 2023-01-04 09:28 | ED Physician Documentation ---
History of Present Illness - Stated complaint Stated Complaint: BLURRED VISION/SEEING DOUBLE - Chief complaint Chief Complaint: Heent - History obtained from History obtained from: Patient, Family - Additonal information Additional information: 87-year-old female presents from home by private vehicle with her daughter for double vision that she noticed when she woke up in the middle the night last n ight. Patient states that she has chronic dry eye that is being treated with Systane eyedrops, but this is a new development. She states that when she looks straight ahead her vision is blurred, and when she looks down she sees double. Also reporting bilateral throbbing headache. Took tylenol and motrin at home for symptoms. Review of Systems Constitutional: denies: Fever, Chills Eyes: reports: Other (double vision). denies: Loss of vision, Decreased vision, Photophobia, Discharge, Irritation : denies: Dysuria, Frequency, Hesitancy PD PAST MEDICAL HISTORY - Past Medical History Cardiovascular: Hypertension, High cholesterol, Deep vein thrombosis, Pulmonary embolism, Atrial fibrillation Respiratory: Asthma Neuro: None Endocrine/Autoimmune: HyPOthyroidism GI: Other WAX SPECIALIST: None : Incontinence, Nocturia HEENT: Chronic vision loss Psych: None Musculoskeletal: Osteoarthritis, Chronic back pain Derm: None - Past Surgical History Past Surgical History: Yes General: Colonoscopy, EGD Ortho: Spine surgery /WAX SPECIALIST: Hysterectomy, Oophrectomy - Present Medications Home Medications: Ambulatory Orders Medication Instructions Recorded Confirmed Gabapentin 600 mg PO BID 11/13/13 07/27/22 Multivitamin [Theragran] 1 tab PO DAILY 08/04/17 01/04/23 methocarbamoL [Methocarbamol] 500 mg PO BID PRN 08/04/17 01/04/23 Acetaminophen [Tylenol] 650 mg PO Q4HR PRN #30 tablet 08/07/17 01/04/23 Calcium Carbonate/Vitamin D3 1 tab PO DAILY 03/21/20 01/04/23 [Calcium 600-Vit D3 800 Caplet] Furosemide 20 mg PO MOWEFR@0900 03/21/20 01/04/23 Metoprolol Succinate [Toprol Xl] 12.5 mg PO QPM 05/01/20 01/04/23 Apixaban [Eliquis] 2.5 mg PO BID 07/27/22 01/04/23 Cholecalciferol [Vitamin D3] 50 mcg PO DAILY 07/27/22 01/04/23 Furosemide [Lasix] 10 mg PO SUTUTHSA@0900 07/27/22 01/04/23 Levothyroxine [Synthroid] 50 mcg PO QDAC 07/27/22 01/04/23 Rosuvastatin Calcium [Crestor] 10 mg PO QPM 07/27/22 01/04/23 Gabapentin [Neurontin] 300 mg PO BID 01/04/23 01/04/23 - Allergies Allergies/Adverse Reactions: Allergies Allergy/AdvReac Type Severity Reaction Status Date / Time Sulfa (Sulfonamide Allergy Intermediate Hives Verified 01/04/23 08:36 Antibiotics) clarithromycin [From Biaxin] Allergy Dizziness Verified 01/04/23 08:36 - Social History Does the pt smoke?: No Smoking Status: Never smoker Does the pt drink ETOH?: Yes Does the pt have substance abuse?: No - Immunizations Immunizations are current?: Yes - POLST Patient has POLST: No POLST Status: DNR (comfort measures; limited abx.) PD ED PE NORMAL - General General: Alert and oriented X 3, No acute distress, Well developed/nourished - HEENT HEENT: Atraumatic, PERRL, EOMI - Neck Neck: Supple, no meningeal sign - Cardiac Cardiac: RRR - Respiratory Respiratory: No respiratory distress, Clear bilaterally - Abdomen Abdomen: Soft, Non tender, Non distended - Back Back: No CVA TTP - Derm Derm: Normal color, Warm and dry, No rash - Extremities Extremities: No deformity, No edema - Neuro Neuro: Alert and oriented X 3, summons server 2-12 intact, No motor deficit, No sensory deficit, Normal speech Results - Vitals Vitals: Vital Signs - 24 hr 01/04/23 01/04/23 01/04/23 08:36 11:00 11:30 Temperature 36.3 C L Heart Rate 64 55 L 58 L Respiratory 18 Rate Blood Pressure 188/104 H 185/83 H 202/94 H O2 Saturation 99 99 98 01/04/23 01/04/23 01/04/23 12:00 12:13 14:00 Temperature 36.1 C L 36.1 C L Heart Rate 56 L 56 L 59 L Respiratory 18 16 Rate Blood Pressure 190/95 H 207/95 H O2 Saturation 100 99 100 Oxygen O2 Source [With Activity] Room air O2 Source Room air - Labs Labs: Laboratory Tests 01/04/23 01/04/23 01/04/23 09:26 09:26 09:26 WBC 6.3 RBC 3.88 L Hgb 11.4 L Hct 34.8 L MCV 89.7 MCH 29.4 MCHC 32.8 RDW 13.6 Plt Count 283 MPV 10.3 Neut # (Auto) 4.3 Lymph # (Auto) 1.1 L [place] # (Auto) 0.5 Eos # (Auto) 0.3 Baso # (Auto) 0.1 Absolute Nucleated RBC 0.00 Nucleated RBC % 0.0 Sodium 135 Potassium 4.4 Chloride 96 L Carbon Dioxide 34 H Anion Gap 5.0 L BUN 33 H Creatinine 1.5 H Estimated GFR (MDRD) 33 L Glucose 128 H Calcium 10.3 Total Bilirubin 0.4 AST 20 ALT 14 Alkaline Phosphatase 75 Total Protein 7.4 Albumin 4.3 Globulin 3.1 Albumin/Globulin Ratio 1.4 Influenza A (Rapid) Influenza B (Rapid) Group A Strep Rapid Negative 01/04/23 09:26 WBC RBC Hgb Hct MCV MCH MCHC RDW Plt Count MPV Neut # (Auto) Lymph # (Auto) [place] # (Auto) Eos # (Auto) Baso # (Auto) Absolute Nucleated RBC Nucleated RBC % Sodium Potassium Chloride Carbon Dioxide Anion Gap BUN Creatinine Estimated GFR (MDRD) Glucose Calcium Total Bilirubin AST ALT Alkaline Phosphatase Total Protein Albumin Globulin Albumin/Globulin Ratio Influenza A (Rapid) Negative Influenza B (Rapid) Negative Group A Strep Rapid PD Medical Decision Making - ED course Complexity details: reviewed old records, reviewed results, re-evaluated patient, considered differential, d/w patient, d/w family ED course: Well-appearing patient with double vision when she looks down. Patient states she has chronic dry eye and her vision is usually blurred but the double vision is new. Extraocular motions are intact, I do not appreciate any obvious deficit. Will obtain labs and CT brain. CT of the brain shows no obvious acute abnormalities. Patient still complaining of double vision. Labs reviewed, patient is chronic kidney disease and this is at her baseline. No other acute lab abnormalities. Will obtain MRI. MRI is negative for acute infarct or obvious explanation for patient's double vision. Patient is well-established with ophthalmology and she was counseled to call her gas meter installer helper for a follow-up appointment. Departure - Departure Disposition: Home, Self Care Clinical Impression: Vertical diplopia Condition: Stable Instructions: ED Double Vision Forms: PCP List Discharge Date/Time: 01/04/23 14:44
[2023-01-04 09:40] LABS: BASOPHILS # (AUTO) 0.1 10^3/uL (0.0-0.1); BASOPHILS % (AUTO) 0.8 %; EOSINOPHILS # (AUTO) 0.3 10^3/uL (0.0-0.7); EOSINOPHILS % (AUTO) 4.8 %; HCT - HEMATOCRIT 34.8 % (37.0-47.0); HGB - HEMOGLOBIN 11.4 g/dL (12.0-16.0); LYMPHOCYTES # (AUTO) 1.1 10^3/uL (1.5-3.5); LYMPHOCYTES % (AUTO) 17.8 %; MEAN CORPUSCULAR HEMOGLOBIN 29.4 pg (27.0-31.0); MEAN CORPUSCULAR HGB CONC 32.8 g/dL (32.0-36.0); MEAN CORPUSCULAR VOLUME 89.7 fL (81.0-99.0); MEAN PLATELET VOLUME 10.3 fL (7.9-10.8); MONOCYTES # (AUTO) 0.5 10^3/uL (0.0-1.0); MONOCYTES % (AUTO) 7.5 %; NEUTROPHILS # (AUTO) 4.3 10^3/uL (1.5-6.6); NEUTROPHILS % (AUTO) 68.8 %; PLT - PLATELET COUNT 283 10^3/uL (130-450); RED BLOOD COUNT 3.88 10^6/uL (4.20-5.40); RED CELL DISTRIBUTION WIDTH 13.6 % (12.0-15.0); WHITE BLOOD COUNT 6.3 x10^3/uL (4.8-10.8)
[2023-01-04 09:57] LABS: ALBUMIN 4.3 g/dL (3.2-5.5); ALBUMIN/GLOBULIN RATIO 1.4 (1.0-2.2); BILIRUBIN,TOTAL 0.4 mg/dL (0.2-1.0); CALCIUM 10.3 mg/dL (8.5-10.3); CREATININE 1.5 mg/dL (0.6-1.3); POTASSIUM 4.4 mmol/L (3.5-4.5); TOTAL PROTEIN 7.4 g/dL (6.4-8.9)
[2023-01-04 10:22] LABS: RAPID STREP SCREEN Negative (Negative)
--- NOTE | 2023-01-04 14:17 | MRI Report ---
PROCEDURE: BRAIN WO INDICATIONS: VERTICAL DIPLOPIA TECHNIQUE: Noncontrast axial T1 spin echo, axial T2 fast spin echo, sagittal and axial FLAIR, coronal T2 fast sp in echo, axial gradient echo, axial diffusion and ADC through the brain. COMPARISON: None. FINDINGS: Image quality: Excellent. The ventricular system and cortical sulci demonstrate atrophy, consistent for patient's stated age. There are areas of hyperintense T2/FLAIR signal in the periventricular and subcortical white matter. There is no acute intra or extra-axial fluid collection. No acute hemorrhage, mass lesion or midlin e shift. Brainstem is unremarkable. There are no areas of restricted diffusion. Globes are symmetr ical. Sinuses demonstrate minimal scattered mucosal thickening. Minimal fluid is present within the l eft mastoid air cells.. Osseous structures are intact. IMPRESSION: 1. No acute intracranial process. 2. Moderate atrophy and chronic microvascular ischemic changes. Reviewed by: Emily Good MD on 01/04/2023 2:15 PM PDT Approved by: Emily Good MD on 01/04/2023 2:15 PM PDT Station ID: [id number]
[2023-01-04 14:23] VITALS: BP 207/95
== END 2023-01-04 14:44 | disposition home or self-care (01) ==
LOC: ED 08:29
DX: H53.2 Diplopia (principal); I10 Essential (primary) hypertension; E78.00 Pure hypercholesterolemia, unspecified; I48.91 Unspecified atrial fibrillation; E03.9 Hypothyroidism, unspecified; Z79.899 Other long term (current) drug therapy; Z79.01 Long term (current) use of anticoagulants
CPT/HCPCS: 36415; 80053; 85025; 87070; 87275; 87276; 87430; 99283; 99284

== ENCOUNTER 2023-01-11 09:30 | Outpatient (CLI) | payer MEDICARE, OTHER ==
[2023-01-11 09:52] LABS: BASOPHILS # (AUTO) 0.1 10^3/uL (0.0-0.1); BASOPHILS % (AUTO) 1.1 %; EOSINOPHILS # (AUTO) 0.3 10^3/uL (0.0-0.7); EOSINOPHILS % (AUTO) 3.8 %; HCT - HEMATOCRIT 34.6 % (37.0-47.0); HGB - HEMOGLOBIN 11.1 g/dL (12.0-16.0); LYMPHOCYTES # (AUTO) 1.5 10^3/uL (1.5-3.5); LYMPHOCYTES % (AUTO) 20.5 %; MEAN CORPUSCULAR HEMOGLOBIN 28.9 pg (27.0-31.0); MEAN CORPUSCULAR HGB CONC 32.1 g/dL (32.0-36.0); MEAN CORPUSCULAR VOLUME 90.1 fL (81.0-99.0); MEAN PLATELET VOLUME 10.3 fL (7.9-10.8); MONOCYTES # (AUTO) 0.7 10^3/uL (0.0-1.0); MONOCYTES % (AUTO) 9.3 %; NEUTROPHILS # (AUTO) 4.7 10^3/uL (1.5-6.6); NEUTROPHILS % (AUTO) 64.9 %; PLT - PLATELET COUNT 250 10^3/uL (130-450); RED BLOOD COUNT 3.84 10^6/uL (4.20-5.40); RED CELL DISTRIBUTION WIDTH 13.8 % (12.0-15.0); WHITE BLOOD COUNT 7.3 x10^3/uL (4.8-10.8)
== END 2023-01-11 09:31 | disposition home or self-care (01) ==
LOC: LAB 09:30
PROVIDERS: ATTEND Optometrist
DX: H47.011 Ischemic optic neuropathy, right eye (principal)
CPT/HCPCS: 36415; 85025; 85651; 86140

== ENCOUNTER 2023-02-01 20:58 | Outpatient (CLI) | payer MEDICARE, OTHER | END 2023-02-01 23:59 | disposition critical access hospital (66) | LOC: EMS 20:58 | DX: R07.9 Chest pain, unspecified (principal) | CPT/HCPCS: A0425; A0427 ==

== ENCOUNTER 2023-02-01 21:16 | Observation (INO) | payer MEDICARE, OTHER ==
[2023-02-01 21:37] LABS: BASOPHILS % (AUTO) 0.1 %; HCT - HEMATOCRIT 30.6 % (37.0-47.0); HGB - HEMOGLOBIN 9.9 g/dL (12.0-16.0); LYMPHOCYTES # (AUTO) 0.8 10^3/uL (1.5-3.5); LYMPHOCYTES % (AUTO) 5.9 %; MEAN CORPUSCULAR HEMOGLOBIN 29.1 pg (27.0-31.0); MEAN CORPUSCULAR HGB CONC 32.4 g/dL (32.0-36.0); MEAN PLATELET VOLUME 10.4 fL (7.9-10.8); MONOCYTES # (AUTO) 0.9 10^3/uL (0.0-1.0); MONOCYTES % (AUTO) 6.8 %; NEUTROPHILS # (AUTO) 11.7 10^3/uL (1.5-6.6); NEUTROPHILS % (AUTO) 86.7 %; PLT - PLATELET COUNT 344 10^3/uL (130-450); RED CELL DISTRIBUTION WIDTH 14.6 % (12.0-15.0); WHITE BLOOD COUNT 13.5 x10^3/uL (4.8-10.8)
--- NOTE | 2023-02-01 21:45 | ED Physician Documentation ---
History of Present Illness - Stated complaint Stated Complaint: CHEST PX - Chief complaint Chief Complaint: Cardiac - Additonal information Additional information: Records review demonstrates patient is 87-year-old female presenting to the em ergency department chief complaint chest pain. Presents via EMS after episode substernal chest pain that began approximately 1 hour prior to arrival. Reports was sitting watching television when she began to experience the pain which had radiation to her jaw. No associated diaphoresis or shortness of breath. She has a past medical significant for atrial fibrillation for which she takes Eliquis, congestive heart failure,. Denies episodes of similar pain in the past. Denies diagnosis coronary artery disease or previous cardiac catheterizations. Review of Systems Constitutional: denies: Fever Eyes: denies: Loss of vision Ears: denies: Loss of hearing Nose: denies: Rhinorrhea / runny nose Throat: denies: Dental pain / toothache Cardiac: reports: Chest pain / pressure Respiratory: denies: Dyspnea GI: denies: Abdominal Pain : denies: Dysuria Skin: denies: Rash Musculoskeletal: denies: Neck pain Neurologic: denies: Generalized weakness PD PAST MEDICAL HISTORY - Past Medical History Cardiovascular: Hypertension, High cholesterol, Deep vein thrombosis, Pulmonary embolism, Atrial fibrillation Respiratory: Asthma Neuro: None Endocrine/Autoimmune: HyPOthyroidism GI: Other 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 : Incontinence, Nocturia HEENT: Chronic vision loss Psych: None Musculoskeletal: Osteoarthritis, Chronic back pain Derm: None - Past Surgical History Past Surgical History: Yes General: Colonoscopy, EGD Ortho: Spine surgery /TRAFFIC WAREHOUSE SUPERVISOR: Hysterectomy, Oophrectomy - Present Medications Home Medications: Ambulatory Orders Medication Instructions Recorded Confirmed Gabapentin 600 mg PO BID 11/13/13 07/27/22 Multivitamin [Theragran] 1 tab PO DAILY 08/04/17 01/04/23 methocarbamoL [Methocarbamol] 500 mg PO BID PRN 08/04/17 01/04/23 Acetaminophen [Tylenol] 650 mg PO Q4HR PRN #30 tablet 08/07/17 01/04/23 Calcium Carbonate/Vitamin D3 1 tab PO DAILY 03/21/20 01/04/23 [Calcium 600-Vit D3 800 Caplet] Furosemide 20 mg PO MOWEFR@0900 03/21/20 01/04/23 Metoprolol Succinate [Toprol Xl] 12.5 mg PO QPM 05/01/20 01/04/23 Apixaban [Eliquis] 2.5 mg PO BID 07/27/22 01/04/23 Cholecalciferol [Vitamin D3] 50 mcg PO DAILY 07/27/22 01/04/23 Furosemide [Lasix] 10 mg PO SUTUTHSA@0900 07/27/22 01/04/23 Levothyroxine [Synthroid] 50 mcg PO QDAC 07/27/22 01/04/23 Rosuvastatin Calcium [Crestor] 10 mg PO QPM 07/27/22 01/04/23 Gabapentin [Neurontin] 300 mg PO BID 01/04/23 01/04/23 - Allergies Allergies/Adverse Reactions: Allergies Allergy/AdvReac Type Severity Reaction Status Date / Time Sulfa (Sulfonamide Allergy Intermediate Hives Verified 01/04/23 08:36 Antibiotics) clarithromycin [From Biaxin] Allergy Dizziness Verified 01/04/23 08:36 - Social History Does the pt smoke?: No Smoking Status: Never smoker Does the pt drink ETOH?: Yes Does the pt have substance abuse?: No - Immunizations Immunizations are current?: Yes - POLST Patient has POLST: No POLST Status: DNR (comfort measures; limited abx.) PD ED PE NORMAL - Vitals Vital signs reviewed: Yes - General General: Alert and oriented X 3, No acute distress, Other (Elderly, frail) - HEENT HEENT: Atraumatic - Neck Neck: Supple, no meningeal sign - Cardiac Cardiac: RRR - Respiratory Respiratory: No respiratory distress - Abdomen Abdomen: Normal bowel sounds - Female Female : Deferred - Rectal Rectal: Deferred - Back Back: No CVA TTP - Extremities Extremities: No deformity, No tenderness to palpate Results - Vitals Vitals: Vital Signs - 24 hr 02/01/23 02/01/23 02/01/23 21:23 21:41 22:07 Temperature 36.7 C Heart Rate 64 64 59 L Respiratory 16 16 16 Rate Blood Pressure 191/81 H 192/76 H 151/70 H O2 Saturation 96 97 94 02/01/23 23:03 Temperature Heart Rate 57 L Respiratory 16 Rate Blood Pressure 170/73 H O2 Saturation 96 Oxygen O2 Source [] Room air O2 Source Room air - EKG (time done) 2128 EKG releavant findings:: EKG personally interpreted by author of this note. Relevant findings are: Sinus rhythm with rate 60 bpm. Normal axis. Normal UT, QRS, QTc intervals. No ST segment elevations. Nonspecific ST and T wave abnormalities. Premature ventricular complexes are no longer present but no other significant change in comparison to previous EKG 07/27/2022. - Labs Labs: Laboratory Tests 02/01/23 02/01/23 02/01/23 21:32 21:32 21:32 WBC 13.5 H RBC 3.40 L Hgb 9.9 L Hct 30.6 L MCV 90.0 MCH 29.1 MCHC 32.4 RDW 14.6 Plt Count 344 MPV 10.4 Neut # (Auto) 11.7 H Lymph # (Auto) 0.8 L [place] # (Auto) 0.9 Eos # (Auto) 0.0 Baso # (Auto) 0.0 Absolute Nucleated RBC 0.00 Nucleated RBC % 0.0 D-Dimer 251.8 Sodium 136 Potassium 4.6 Chloride 94 L Carbon Dioxide 32 Anion Gap 10.0 BUN 55 H Creatinine 1.7 H Estimated GFR (MDRD) 28 L Glucose 335 H Calcium 9.0 Total Bilirubin 0.5 AST 16 ALT 23 Alkaline Phosphatase 58 Troponin I High Sens 12.1 Total Protein 5.7 L Albumin 3.6 Globulin 2.1 Albumin/Globulin Ratio 1.7 Lipase 52 H 02/01/23 22:55 WBC RBC Hgb Hct MCV MCH MCHC RDW Plt Count MPV Neut # (Auto) Lymph # (Auto) [place] # (Auto) Eos # (Auto) Baso # (Auto) Absolute Nucleated RBC Nucleated RBC % D-Dimer Sodium Potassium Chloride Carbon Dioxide Anion Gap BUN Creatinine Estimated GFR (MDRD) Glucose Calcium Total Bilirubin AST ALT Alkaline Phosphatase Troponin I High Sens 12.6 Total Protein Albumin Globulin Albumin/Globulin Ratio Lipase PD Medical Decision Making - ED course Complexity details: reviewed old records, reviewed results, considered differential, d/w patient ED course: Patient is an 87-year-old female with known history of chronic renal disease, heart failure, A-fib on Eliquis presenting to the emergency department with chest pain. Had a episode of substernal chest pain radiating to her left jaw prior to arrival. Received nitroglycerin and aspirin prior to arrival. Reported steadily improving pain here in the emergency department. Denied any known history of coronary artery disease. Did report a history of recent hospitalization [facility], [place] where she was evaluated for new onset proptosis to her left eye. She reports that she had an extensive stroke work-up at that time which was negative. I have requested documentation from [facility] concerning this hospitalization however after several hours and multiple requests that is still pending. On arrival to the emergency department her EKG showed nonspecific ST-T wave abnormalities unchanged from her baseline. Her D-dimer was negative. Her labs demonstrated a chronic anemia not significantly changed from baseline as well as chronic renal insufficiency. High-sensitivity troponins were obtained which were negative on serial evaluation. She denied any recent stress testing and the most recent echocardiogram available in our system is from 2019. Overall this does represent an elderly female who had a highly suspicious episode of chest pain concerning for acute coronary syndrome. I did discuss her care with the telemetry hospitalist, she will be hospitalized at our facility for further evaluation and treatment. Departure - Departure Disposition: 66 [facility] DC/Xfer Clinical Impression: Chest pain, Anemia, Chronic renal disease Forms: PCP List
[2023-02-01 21:51] LABS: ALBUMIN 3.6 g/dL (3.2-5.5); ALBUMIN/GLOBULIN RATIO 1.7 (1.0-2.2); BILIRUBIN,TOTAL 0.5 mg/dL (0.2-1.0); CREATININE 1.7 mg/dL (0.4-1.0); POTASSIUM 4.6 mmol/L (3.5-5.0); TOTAL PROTEIN 5.7 g/dL (6.7-8.2)
[2023-02-01 21:58] LABS: TROPONIN I HIGH SENSITIVITY 12.1 ng/L (2.3-14.8)
--- NOTE | 2023-02-01 22:11 | XRAY Report ---
PROCEDURE: Chest 1 View X-Ray INDICATIONS: chest pain TECHNIQUE: One view of the chest was acquired. COMPARISON: Chest radiograph 07/27/2022. FINDINGS: Surgical changes and devices: Multilevel spinal fixation changes again seen. Lungs and pleura: No pleural effusions or pneumothorax. Lungs are clear. Mediastinum: Mediastinal contours appear normal. Heart size is normal. Bones and chest wall: No suspicious bony lesions. Overlying soft tissues appear unremarkable. IMPRESSION: No acute cardiopulmonary process. Reviewed by: Matthew Adan MD on 02/01/2023 10:09 PM PDT Approved by: Matthew Adan MD on 02/01/2023 10:09 PM PDT Station ID: [id number]
[2023-02-01] MEDS ORDERED: NITROGLYCERIN SL 0.4 MG TABLET SL SCH (23:45)
[2023-02-01] MEDS ORDERED: MORPHINE 2 MG/ML CARPUJECT IVP PRN (23:50)
[2023-02-01] MEDS ORDERED: ONDANSETRON 4 MG/2 ML VIAL IVP PRN (23:50)
[2023-02-01] MEDS ORDERED: SODIUM CHLORIDE FLUSH 0.9% 10 ML SYRINGE IVP PRN (23:50)
--- NOTE | 2023-02-02 00:04 | HISTORY & PHYSICAL EXAMINATION ---
Chief Complaint - Chief Complaint Chief Complaint: chest pain History of Present Illness - History of Present Illness HPI Comment/Other: 87 y old femal;e with PMH HTN, HLP, CHF, A fib on Eliquis, hypothyroidism came with c/o chest pain which started about 8 pm. C/O chest pain which is substernal. pressure like, moderate in intensity, radiating to jaw relieved with S/L nitro. C/O shortness of breath.Denies diaphoresis, palpitaions, fever, nausea, vomiting, symptoms On presentaion, afebrile. 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 [place] She has 2 grown daughters, both are relatively close by. She was 2 times, the last time about 20 years ago. She request to be a DNR. - Substance History Use: Uses substance without health or social issues: NONE - POLST Patient has POLST: No POLST Status: DNR (comfort measures; limited abx.) Meds/Allgy - Home Medications Home Medications: Ambulatory Orders Medication Instructions Recorded Confirmed Gabapentin 600 mg PO BID 11/13/13 07/27/22 Multivitamin [Theragran] 1 tab PO DAILY 08/04/17 01/04/23 methocarbamoL [Methocarbamol] 500 mg PO BID PRN 08/04/17 01/04/23 Acetaminophen [Tylenol] 650 mg PO Q4HR PRN #30 tablet 08/07/17 01/04/23 Calcium Carbonate/Vitamin D3 1 tab PO DAILY 03/21/20 01/04/23 [Calcium 600-Vit D3 800 Caplet] Furosemide 20 mg PO MOWEFR@0900 03/21/20 01/04/23 Metoprolol Succinate [Toprol Xl] 12.5 mg PO QPM 05/01/20 01/04/23 Apixaban [Eliquis] 2.5 mg PO BID 07/27/22 01/04/23 Cholecalciferol [Vitamin D3] 50 mcg PO DAILY 07/27/22 01/04/23 Furosemide [Lasix] 10 mg PO SUTUTHSA@0900 07/27/22 01/04/23 Levothyroxine [Synthroid] 50 mcg PO QDAC 07/27/22 01/04/23 Rosuvastatin Calcium [Crestor] 10 mg PO QPM 07/27/22 01/04/23 Gabapentin [Neurontin] 300 mg PO BID 01/04/23 01/04/23 - Allergies Allergies/Adverse Reactions: Allergies Allergy/AdvReac Type Severity Reaction Status Date / Time Sulfa (Sulfonamide Allergy Intermediate Hives Verified 01/04/23 08:36 Antibiotics) clarithromycin [From Biaxin] Allergy Dizziness Verified 01/04/23 08:36 Review of Systems - Other Findings Other Findings: 10 points systems were reviewed and were negative except mentioned in HPI Exam - Vital Signs Vital Signs: Vital Signs x48h Temp Pulse Resp BP Pulse Ox 02/01/23 23:32 65 16 165/74 H 96 02/01/23 23:03 57 L 16 170/73 H 96 02/01/23 22:07 59 L 16 151/70 H 94 02/01/23 21:41 64 16 192/76 H 97 02/01/23 21:23 36.7 C 64 16 191/81 H 96 - Physical Exam General Appearance: positive: No acute distress Eyes Bilateral: positive: Normal inspection ENT: positive: ENT inspection nml Neck: positive: Nml inspection Abdomen: positive: Non-tender, Nml bowel sounds Back: positive: Nml inspection Skin: positive: Color nml, No rash Extremities: positive: No pedal edema Neurologic/Psychiatric: positive: Oriented x3, Motor nml Conclusion/Plan - Lab Results Fish Bones: 02/01/23 21:32 02/01/23 21:32 - Other Other Results/Comments: Chest pain Leukocytosis CKD 3 HTN HLP, H/O CHF Afib on Eliquis Plan; Admit in tele seriel cardiac enzymes cardiac monitoring NPO Stress test in am Echo Aspirin 81 mg po qd Cont metoprolol lipitor 40 mg po qd NG s/l prn check lipid panel Repeat CBC, CMP in am Cont lasix Cont Eliquis DVT prophylaxic: On Eliquis Full code Pt is admitted under observation
[2023-02-02 00:17] LABS: CHOLESTEROL 202 mg/dL; HDL CHOLESTEROL 99 mg/dL; LDL CHOLESTEROL,CALCULATED 85 mg/dL; LDL/HDL RATIO 0.9 (<4.4); TRIGLYCERIDES 91 mg/dL (48-352); VLDL CHOLESTEROL 18 mg/dL
[2023-02-02] MEDS: SODIUM CHLORIDE FLUSH 0.9% 10 ML SYRINGE IVP SCH ×2 (00:56→08:35)
[2023-02-02] MEDS ORDERED: NITROGLYCERIN SL 0.4 MG TABLET SL PRN (01:15)
[2023-02-02] MEDS ORDERED: hydrALAZINE INJ 20 MG/ML VIAL IVP STA (01:15)
[2023-02-02 05:46] LABS: BASOPHILS % (AUTO) 0.1 %; EOSINOPHILS # (AUTO) 0.1 10^3/uL (0.0-0.7); EOSINOPHILS % (AUTO) 0.5 %; HCT - HEMATOCRIT 29.5 % (37.0-47.0); HGB - HEMOGLOBIN 9.6 g/dL (12.0-16.0); LYMPHOCYTES % (AUTO) 14.5 %; MEAN CORPUSCULAR HEMOGLOBIN 29.3 pg (27.0-31.0); MEAN CORPUSCULAR HGB CONC 32.5 g/dL (32.0-36.0); MEAN CORPUSCULAR VOLUME 89.9 fL (81.0-99.0); MEAN PLATELET VOLUME 10.1 fL (7.9-10.8); MONOCYTES # (AUTO) 1.1 10^3/uL (0.0-1.0); MONOCYTES % (AUTO) 7.7 %; NEUTROPHILS # (AUTO) 10.7 10^3/uL (1.5-6.6); NEUTROPHILS % (AUTO) 76.6 %; PLT - PLATELET COUNT 299 10^3/uL (130-450); RED BLOOD COUNT 3.28 10^6/uL (4.20-5.40); RED CELL DISTRIBUTION WIDTH 14.7 % (12.0-15.0); WHITE BLOOD COUNT 13.9 x10^3/uL (4.8-10.8)
[2023-02-02 06:00] LABS: ALBUMIN 3.4 g/dL (3.2-5.5); ALBUMIN/GLOBULIN RATIO 1.6 (1.0-2.2); BILIRUBIN,TOTAL 0.3 mg/dL (0.2-1.0); CALCIUM 9.2 mg/dL (8.5-10.3); CREATININE 1.5 mg/dL (0.6-1.3); TOTAL PROTEIN 5.5 g/dL (6.4-8.9)
[2023-02-02 08:27] VITALS: BP 146/71; O2SAT 98
[2023-02-02] MEDS ORDERED: METOPROLOL TARTRATE 50 MG TABLET PO SCH (09:00)
[2023-02-02] MEDS ORDERED: ASPIRIN 325 MG TABLET PO SCH (09:00)
[2023-02-02] MEDS ORDERED: FUROSEMIDE 20 MG TABLET PO SCH (09:00)
[2023-02-02] MEDS ORDERED: ATORVASTATIN 40 MG TABLET PO SCH (09:00)
[2023-02-02] MEDS ORDERED: APIXABAN 5 MG TABLET PO SCH (09:00)
--- NOTE | 2023-02-02 11:55 | Discharge Plan ---
Discharge Plan Problem Reviewed?: Yes Disposition: Home, Self Care Condition: Fair Diet: Low Sodium Activity Restrictions: Activity as Tolerated Shower Restrictions: No Driving Restrictions: No Health Concerns: You were brought in by ambulance because you were experiencing upper abdominal and lower chest heaviness that radiated into your left jaw. You told me that you think you overreacted because of a new home situation. You were anxious. Once you calm down all of this discomfort went away. Just to make sure, you were placed in observation to make sure you are not having a heart attack. Your blood test are negative for that. We measure a very special enzyme in your blood whenever someone is having angina and that blood test was completely normal/low. We did find her to have chronic kidney insufficiency, however, that is gradually been getting worse over the last 5 years. Plan of Treatment: Please see your primary care provider, Dr. Negrito Wilkerson, and follow-up in the next 1 to 2 weeks. There will be no change in your medication. If you and Dr. Wilkerson feel the need for you to have a stress test to make sure you do not have blocked heart arteries, have him order that for you. Care Goals: There is no change in your current care goals. Assessment: Patient is alert, mildly deaf, but able to be self-determining for decisions. No Smoking: If you smoke, Please STOP! Call for help. Follow-up with: Negrito Wilkerson MD [Provider Admit Priv/Credential] -
--- NOTE | 2023-02-02 12:39 | PHARMACY PROGRESS NOTE ---
- Best Possible Medication History Admit Date and Time: 02/01/23 0770 Processed by: Pharmacy Medication History completed: Yes Patient Interview: Completed Secondary Source(s): Other family member (MED REC DONE WITH FAMILY MEMBER AT BEDSIDE. PER PT AND FAMILY MEMBER, BP AT HOME IN THE 120'S OVER 60'S WITHOUT AMLODIPINE SO PT HASN'T BEEN TAKING IT ALTHOUGH IT WAS FILLED. DURING OV, BP GOES UP. BUT IT TANKED AT [facility] AND IS USUALLY NORMAL AT HOME.), Insurance records As the person ultimately responsible for medication therapy, providers are able to order a medication from an existing home medication list in [facility] via the "Reconcile Routine" prior to Confirmation of that medication by dealer support technician. Such practice is discouraged except when the physician, in their clinical judgment, deems that a medical need exists for a medication without regard to previous use.
--- NOTE | 2023-02-03 07:58 | DISCHARGE SUMMARY ---
Discharge Summary Admit Date: 02/02/23 Discharge Date: 02/02/23 Discharging Provider: Nadia Waldron MD Primary Care Provider: Negrito Wilkerson MD Code Status: Do Not Attempt Resuscitation Condition at Discharge: Fair Discharge Disposition: 01 Home, Self Care - DIAGNOSES Discharge Diagnoses with Status of Each Condition: 1. Chest pain 2. Hypertension 3. Chronic atrial fibrillation 4. Chronic diastolic heart failure - HPI History of Present Illness: 87 y old femal;e with PMH HTN, HLP, CHF, A fib on Eliquis, hypothyroidism came with c/o chest pain which started about 8 pm. C/O chest pain which is substernal. pressure like, moderate in intensity, radiating to jaw relieved with S/L nitro. C/O shortness of breath.Denies diaphoresis, palpitaions, fever, nausea, vomiting, symptoms On presentaion, afebrile. 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 showed Leukocytosis and All Around Presser 1.7 1st set of trop neg EKG showed NSR and non-specific ST-T changes Pt is admitted due to chest pain and to r/o ACS - CONSULTS | PROCEDURES Procedures: Chest x-ray is without acute cardiopulmonary disease - HOSPITAL COURSE Hospital Course: Serial cardiac enzymes were ordered on this patient. Troponins were 12, 12, and 14. All within normal limits. She was identified as having worsening chronic kidney disease. Her normal was 1.0 in 2018. Since that time her creatinine has been climbing. She was 1.7 in November of this year, and on admission. At the time of discharge she is 1.5. Echocardiogram was done and ejection fraction is 60 to 65% with no wall motion abnormality. She has mild tricuspid regurgitation with RVSP at rest mildly elevated at 46. No pericardial effusion. Stress test was not able to be done today. Patient was asymptomatic throughout her stay. She states that she may have overreacted due to a stress of "a new environment". Sh isac was vague about what that meant. In any case she was stable for discharge. I will leave it to the discretion of her primary care provider if the patient is a candidate for stress testing. At discharge temperature is 36.4. Heart rate 57. Blood pressure 146/71. Respirations 18. 98% on room air. She has a slow irregular rate and rhythm. Lungs are clear. And abdomen that is soft, nontender. Normal bowel sounds. Extremities with only trace edema. She is mildly deaf but alert and oriented to person, place, situation. Able to get up out of bed on her own and ambulate to the bathroom and back. She is discharged in stable condition. No changes in her medications.On admission, the telehospitalist stated that her CODE STATUS was full code. The patient stated that she wants this corrected. She is a DO NOT RESUSCITATE. - ALLERGIES Allergies/Adverse Reactions: Allergies Allergy/AdvReac Type Severity Reaction Status Date / Time Sulfa (Sulfonamide Allergy Intermediate Hives Verified 01/04/23 08:36 Antibiotics) clarithromycin [From Biaxin] Allergy Dizziness Verified 01/04/23 08:36 - MEDICATIONS Home Medications: Ambulatory Orders Medication Instructions Recorded Confirmed Gabapentin 600 mg PO BID 11/13/13 02/02/23 Multivitamin [Theragran] 1 tab PO DAILY 08/04/17 02/02/23 methocarbamoL [Methocarbamol] 500 mg PO BID PRN 08/04/17 02/02/23 Acetaminophen [Tylenol] 650 mg PO Q4HR PRN #30 tablet 08/07/17 02/02/23 Calcium Carbonate/Vitamin D3 1 tab PO DAILY 03/21/20 02/02/23 [Calcium 600-Vit D3 800 Caplet] Furosemide 20 mg PO MOWEFR@0900 03/21/20 02/02/23 Metoprolol Succinate [Toprol Xl] 12.5 mg PO QPM 05/01/20 02/02/23 Apixaban [Eliquis] 2.5 mg PO BID 07/27/22 02/02/23 Levothyroxine [Synthroid] 25 mcg PO QDAC 07/27/22 02/02/23 Rosuvastatin Calcium [Crestor] 10 mg PO QPM 07/27/22 02/02/23 Gabapentin [Neurontin] 300 mg PO BID 01/04/23 02/02/23 Lactobacillus Combination No.4 1 each PO DAILY 02/02/23 02/02/23 [Probiotic] predniSONE [Deltasone] 60 mg PO .SEE INSTRUCTIONS 02/02/23 02/02/23 - LABS Result Diagrams: 02/02/23 05:45 02/02/23 05:45
== END 2023-02-02 12:25 | disposition home or self-care (01) ==
LOC: EDUNIT# → ED 21:16 → MS3 23:50
PROVIDERS: ADMIT Internal Medicine; ATTEND Specialist
DX: R07.2 Precordial pain (principal); I13.0 Hypertensive heart and chronic kidney disease with heart failure and stage 1 through stage 4 chronic kidney disease, or unspecified chronic kidney disease; I50.32 Chronic diastolic (congestive) heart failure; N18.30 Chronic kidney disease, stage 3 unspecified; I48.20 Chronic atrial fibrillation, unspecified; E03.9 Hypothyroidism, unspecified; I07.1 Rheumatic tricuspid insufficiency; D72.829 Elevated white blood cell count, unspecified; E78.00 Pure hypercholesterolemia, unspecified; J45.909 Unspecified asthma, uncomplicated; H54.7 Unspecified visual loss; M54.9 Dorsalgia, unspecified; G89.29 Other chronic pain; M19.90 Unspecified osteoarthritis, unspecified site; D63.1 Anemia in chronic kidney disease; Z66 Do not resuscitate; Z79.01 Long term (current) use of anticoagulants; Z79.890 Hormone replacement therapy; Z79.899 Other long term (current) drug therapy; Z82.49 Family history of ischemic heart disease and other diseases of the circulatory system; Z86.711 Personal history of pulmonary embolism; Z86.718 Personal history of other venous thrombosis and embolism; Z90.710 Acquired absence of both cervix and uterus
CPT/HCPCS: 36415; 71045; 80053; 80061; 83690; 84484; 85025; 85379; 93005; 93306; 96374; 99284; 99285; A9270; G0378; 83721

== ENCOUNTER 2023-02-09 09:15 | Outpatient (CLI) | payer MEDICARE, OTHER ==
[2023-02-09 11:49] LABS: BASOPHILS % (AUTO) 0.2 %; EOSINOPHILS # (AUTO) 0.1 10^3/uL (0.0-0.7); EOSINOPHILS % (AUTO) 0.5 %; HCT - HEMATOCRIT 30.9 % (37.0-47.0); HGB - HEMOGLOBIN 9.9 g/dL (12.0-16.0); LYMPHOCYTES % (AUTO) 5.7 %; MEAN CORPUSCULAR HEMOGLOBIN 29.6 pg (27.0-31.0); MEAN CORPUSCULAR VOLUME 92.5 fL (81.0-99.0); MEAN PLATELET VOLUME 11.2 fL (7.9-10.8); MONOCYTES # (AUTO) 0.6 10^3/uL (0.0-1.0); MONOCYTES % (AUTO) 3.3 %; NEUTROPHILS # (AUTO) 14.9 10^3/uL (1.5-6.6); NEUTROPHILS % (AUTO) 89.8 %; PLT - PLATELET COUNT 296 10^3/uL (130-450); RED BLOOD COUNT 3.34 10^6/uL (4.20-5.40); RED CELL DISTRIBUTION WIDTH 15.4 % (12.0-15.0); WHITE BLOOD COUNT 16.6 x10^3/uL (4.8-10.8)
[2023-02-09 12:05] LABS: CALCIUM 9.3 mg/dL (8.5-10.3); CREATININE 1.5 mg/dL (0.6-1.3); POTASSIUM 4.2 mmol/L (3.5-4.5)
[2023-02-09 13:31] LABS: FERRITIN 235.6 ng/mL (11.0-306.8)
== END 2023-02-09 09:16 | disposition home or self-care (01) ==
LOC: LAB.N 09:15
PROVIDERS: ATTEND Physician Assistant
DX: N17.9 Acute kidney failure, unspecified (principal); D64.9 Anemia, unspecified; N18.9 Chronic kidney disease, unspecified
CPT/HCPCS: 36415; 80048; 82728; 83540; 84466; 85025

== ENCOUNTER 2023-02-15 13:44 | Outpatient (CLI) | payer MEDICARE, OTHER ==
--- NOTE | 2023-02-16 09:48 | Ultrasound Report ---
LIMITED ULTRASOUND OF LEFT BREAST: 02/15/2023 CLINICAL: Patient returns for a 6 month follow up of the left breast. Comparison is made to exams dated: 08/09/2022 ultrasound, 08/09/2022 mammogram, 07/19/2022 mammogram, mammogram, 09/24/2015 mammogram, and 09/25/2014 mammogram - [facility]. Color flow ultrasound of the left breast 2-3 o'clock region was performed. Mcdonnell scale images of the real-time examination were reviewed. There is a possible 0.9 cm x 1.5 cm x 0.7 cm oval mass in the left breast at 3 o'clock middle depth 3 cm from the nipple. This oval mass is hypoechoic with no posterior acoustic shadowing or enhancemen t. This abnormality is not significantly changed and correlates as an incidental finding but was not seen on additional views of the previous mammogram. Color flow imaging demonstrates that there is n o increase in vascularity. There also is a 1.4 cm x 1.3 cm x 0.7 cm oval mass with a circumscribed margin in the left breast at 3 o'clock anterior depth 1 cm from the nipple. This oval mass is hypoechoic. This abnormality is no t significantly changed and correlates as an incidental finding but was not seen on the prior mammogr am. Color flow imaging demonstrates that there is no vascularity present. IMPRESSION: PROBABLY BENIGN The possible 0.9 cm x 1.5 cm x 0.7 cm oval mass in the left breast at 3 o'clock middle depth has a di fferential diagnosis of a fat lobule, a fibroadenoma, or focal dense fibroglandular tissue and is pro bably benign. The stable 1.4 cm x 1.3 cm x 0.7 cm oval mass in the left breast at 3 o'clock anterior depth has a di fferential diagnosis of a fat lobule or a fibroadenoma and is probably benign. A follow-up bilateral mammogram and a left ultrasound in 6 months is recommended to demonstrate stabi lity. Findings and recommendations were conveyed to the patient during today's evaluation. This exam was interpreted at Station ID: [id number]. Electronically Signed By: Erick Ash M.D. aty/:02/15/2023 15:22:38 Ultrasound BI-RADS: 3 Probably benign BI-RADS CATEGORY: (3) - 3 Mammo and US [id number] 6 month follow-up LATERALITY: (B)
== END 2023-02-15 13:45 | disposition home or self-care (01) ==
LOC: DI 13:44
PROVIDERS: ATTEND Internal Medicine
DX: N60.02 Solitary cyst of left breast (principal); N63.25 Unspecified lump in the left breast, overlapping quadrants

== ENCOUNTER 2023-04-08 07:36 | Outpatient (CLI) | payer MEDICARE, OTHER ==
[2023-04-08 12:36] LABS: BASOPHILS # (AUTO) 0.1 10^3/uL (0.0-0.1); BASOPHILS % (AUTO) 1.1 %; EOSINOPHILS # (AUTO) 0.4 10^3/uL (0.0-0.7); EOSINOPHILS % (AUTO) 4.8 %; HGB - HEMOGLOBIN 10.8 g/dL (12.0-16.0); LYMPHOCYTES # (AUTO) 1.5 10^3/uL (1.5-3.5); LYMPHOCYTES % (AUTO) 18.7 %; MEAN CORPUSCULAR HEMOGLOBIN 28.6 pg (27.0-31.0); MEAN CORPUSCULAR HGB CONC 31.8 g/dL (32.0-36.0); MEAN CORPUSCULAR VOLUME 90.2 fL (81.0-99.0); MEAN PLATELET VOLUME 10.8 fL (7.9-10.8); MONOCYTES # (AUTO) 0.7 10^3/uL (0.0-1.0); MONOCYTES % (AUTO) 8.8 %; NEUTROPHILS # (AUTO) 5.3 10^3/uL (1.5-6.6); NEUTROPHILS % (AUTO) 66.1 %; PLT - PLATELET COUNT 309 10^3/uL (130-450); RED BLOOD COUNT 3.77 10^6/uL (4.20-5.40); RED CELL DISTRIBUTION WIDTH 14.7 % (12.0-15.0); WHITE BLOOD COUNT 8.1 x10^3/uL (4.8-10.8)
[2023-04-08 12:40] LABS: ESTIMATED AVERAGE GLUCOSE 140 mg/dL (70-100); HEMOGLOBIN A1c% 6.5 % (4.27-6.07)
[2023-04-08 12:55] LABS: ALBUMIN 4.1 g/dL (3.2-5.5); ALBUMIN/GLOBULIN RATIO 1.5 (1.0-2.2); BILIRUBIN,TOTAL 0.4 mg/dL (0.2-1.0); CREATININE 1.4 mg/dL (0.6-1.3); POTASSIUM 4.2 mmol/L (3.5-4.5); TOTAL PROTEIN 6.9 g/dL (6.4-8.9)
[2023-04-08 13:04] LABS: THYROID STIMULATING HORMONE 4.25 uIU/mL (0.34-5.60)
== END 2023-04-08 07:37 | disposition home or self-care (01) ==
LOC: LAB.N 07:36
PROVIDERS: ATTEND Internal Medicine
DX: R73.03 Prediabetes (principal); I48.91 Unspecified atrial fibrillation; G08 Intracranial and intraspinal phlebitis and thrombophlebitis
CPT/HCPCS: 36415; 80053; 83036; 84443; 85025

== ENCOUNTER 2023-07-20 07:31 | Outpatient (CLI) | payer MEDICARE, OTHER ==
[2023-07-20 12:13] LABS: BASOPHILS # (AUTO) 0.1 10^3/uL (0.0-0.1); BASOPHILS % (AUTO) 0.8 %; EOSINOPHILS # (AUTO) 0.4 10^3/uL (0.0-0.7); EOSINOPHILS % (AUTO) 6.3 %; HCT - HEMATOCRIT 36.3 % (37.0-47.0); HGB - HEMOGLOBIN 11.3 g/dL (12.0-16.0); LYMPHOCYTES # (AUTO) 1.2 10^3/uL (1.5-3.5); LYMPHOCYTES % (AUTO) 19.9 %; MEAN CORPUSCULAR HEMOGLOBIN 27.4 pg (27.0-31.0); MEAN CORPUSCULAR HGB CONC 31.1 g/dL (32.0-36.0); MEAN CORPUSCULAR VOLUME 88.1 fL (81.0-99.0); MEAN PLATELET VOLUME 10.8 fL (7.9-10.8); MONOCYTES # (AUTO) 0.5 10^3/uL (0.0-1.0); MONOCYTES % (AUTO) 7.9 %; NEUTROPHILS % (AUTO) 64.8 %; PLT - PLATELET COUNT 271 10^3/uL (130-450); RED BLOOD COUNT 4.12 10^6/uL (4.20-5.40); WHITE BLOOD COUNT 6.2 x10^3/uL (4.8-10.8)
[2023-07-20 12:35] LABS: CALCIUM 10.4 mg/dL (8.5-10.3); CREATININE 1.5 mg/dL (0.6-1.3); PHOSPHORUS 4.2 mg/dL (2.5-5.0); POTASSIUM 4.1 mmol/L (3.5-4.5)
[2023-07-20 12:39] LABS: THYROID STIMULATING HORMONE 3.96 uIU/mL (0.34-5.60)
[2023-07-20 12:45] LABS: ESTIMATED AVERAGE GLUCOSE 137 mg/dL (70-100); HEMOGLOBIN A1c% 6.4 % (4.27-6.07)
== END 2023-07-20 07:32 | disposition home or self-care (01) ==
LOC: LAB.N 07:31
PROVIDERS: ATTEND Internal Medicine
DX: N18.32 Chronic kidney disease, stage 3b (principal); R73.03 Prediabetes; E03.9 Hypothyroidism, unspecified
CPT/HCPCS: 36415; 80048; 82306; 83036; 84100; 84443; 85025

== ENCOUNTER 2023-09-14 09:34 | Outpatient (CLI) | payer MEDICARE, OTHER ==
--- NOTE | 2023-09-15 09:09 | Ultrasound Report ---
LIMITED ULTRASOUND OF LEFT BREAST: 09/14/2023 CLINICAL: Patient returns today to evaluate an asymmetry in the left breast. Comparison is made to exams dated: 09/14/2023 mammogram, 02/15/2023 ultrasound, 08/09/2022 ultrasound, mammogram, 07/19/2022 mammogram, and 03/19/2019 mammogram - [facility]. Color flow and real-time ultrasound of the left breast 2-3 o'clock region were performed. Mcdonnell scal e images of the real-time examination were reviewed. There is a 1.6 cm x 1.3 cm x 0.7 cm oval mass with a circumscribed margin in the left breast at 3 o'c lock anterior depth 1 cm from the nipple. This oval mass is hypoechoic. This abnormality is not sig nificantly changed and was not seen on the mammogram. Color flow imaging demonstrates that there is no vascularity present. There is a possible 0.9 cm x 1.4 cm x 0.7 cm oval lobulated mass with an increasingly indistinct jennifer in in the left breast at 3 o'clock middle depth 3 cm from the nipple. This oval mass is hypoechoic w ith no posterior acoustic shadowing or enhancement. This abnormality is less well defined and was no t seen on the prior mammogram. Color flow imaging demonstrates that there is no increase in vascular ity. IMPRESSION: PROBABLY BENIGN No significant change in two possible masses in the left breast 3:00 radian 1 and 3 cm from the nippl e. Differential considerations include dense fibroglandular tissue, fat lobules or fibroadenomas. Nei ther are seen on mammogram as discrete structures due to extremely dense glandular pattern. A follow-up left ultrasound in 6 months is recommended to demonstrate continued stability. Findings and recommendations were conveyed to the patient at time of exam. This exam was interpreted at Station ID: [id number]. Electronically Signed By: Lacey mary/:09/14/2023 11:06:38 Ultrasound BI-RADS: 3 Probably benign BI-RADS CATEGORY: (3) - 3 Ultrasound [id number] 6 month follow-up LATERALITY: (L)
--- NOTE | 2023-09-15 09:09 | Mammography Report ---
BILATERAL DIGITAL DIAGNOSTIC MAMMOGRAM 3D/2D: 09/14/2023 CLINICAL: Patient returns for a 6 month follow up of the left breast, due for bilateral exam. Comparison is made to exams dated: 08/09/2022 mammogram, 07/19/2022 mammogram, 03/19/2019 mammogram, 09/11 mammogram, and 09/25/2014 mammogram - [facility]. Both breasts are extremely dense, which lowers the sensitivity of mammography (category d />75% gland ular tissue). There are extensive bilateral vascular calcifications. No significant masses, calcifications, or other findings are seen in either breast. The previously s een left breast oval asymmetry is not identified. No new focal asymmetries are seen. IMPRESSION: INCOMPLETE: NEEDS ADDITIONAL IMAGING EVALUATION Bilateral mammograms are stable. No persistent or new focal asymmetries. Ultrasound is recommended for re-evaluation of previously seen left breast masses which are mammograp hically occult. This was performed immediately following this exam. This exam was interpreted at Station ID: [id number]. NOTE: For mammograms, a report in lay terms will be sent to the patient. Approximately 15% of breast malignancies will not be visualized mammographically. In the management of a palpable breast mass, a negative mammogram must not discourage biopsy of a clinically suspicious lesion. Electronically Signed By: Lacey mary/:09/14/2023 10:46:32 ACR BI-RADS Category 0: Incomplete 3340F PARENCHYMAL PATTERN: (VD) - The breast(s) demonstrate(s) extremely dense parenchyma, limiting the sen sitivity of mammography. BI-RADS CATEGORY: (0) - 0 Ultrasound [id number] Immediate follow-up LATERALITY: (B)
== END 2023-09-14 09:35 | disposition home or self-care (01) ==
LOC: DI 09:34
PROVIDERS: ATTEND Internal Medicine
DX: N60.02 Solitary cyst of left breast (principal); R92.30 Dense breasts, unspecified

== ENCOUNTER 2023-12-29 07:15 | Outpatient (CLI) | payer MEDICARE, OTHER ==
[2023-12-29 12:07] LABS: BASOPHILS # (AUTO) 0.1 10^3/uL (0.0-0.1); EOSINOPHILS # (AUTO) 0.3 10^3/uL (0.0-0.7); EOSINOPHILS % (AUTO) 4.9 %; HCT - HEMATOCRIT 34.3 % (37.0-47.0); HGB - HEMOGLOBIN 10.8 g/dL (12.0-16.0); LYMPHOCYTES # (AUTO) 1.5 10^3/uL (1.5-3.5); LYMPHOCYTES % (AUTO) 25.2 %; MEAN CORPUSCULAR HEMOGLOBIN 28.1 pg (27.0-31.0); MEAN CORPUSCULAR HGB CONC 31.5 g/dL (32.0-36.0); MEAN CORPUSCULAR VOLUME 89.3 fL (81.0-99.0); MONOCYTES # (AUTO) 0.6 10^3/uL (0.0-1.0); MONOCYTES % (AUTO) 9.5 %; NEUTROPHILS # (AUTO) 3.6 10^3/uL (1.5-6.6); NEUTROPHILS % (AUTO) 59.2 %; PLT - PLATELET COUNT 252 10^3/uL (130-450); RED BLOOD COUNT 3.84 10^6/uL (4.20-5.40); RED CELL DISTRIBUTION WIDTH 14.6 % (12.0-15.0); WHITE BLOOD COUNT 6.1 x10^3/uL (4.8-10.8)
[2023-12-29 12:23] LABS: ESTIMATED AVERAGE GLUCOSE 128 mg/dL (70-100); HEMOGLOBIN A1c% 6.1 % (4.27-6.07)
[2023-12-29 12:29] LABS: ALBUMIN 4.3 g/dL (3.2-5.5); ALBUMIN/GLOBULIN RATIO 1.5 (1.0-2.2); ALKALINE PHOSPHATASE 70 IU/L (42-121); ALT ALANINE AMINOTRANSFERASE 13 IU/L (10-60); AST ASPARTATE AMINOTRANSFERASE 19 IU/L (10-42); BILIRUBIN,TOTAL 0.4 mg/dL (0.2-1.0); BUN - BLOOD UREA NITROGEN 38 mg/dL (6-20); CALCIUM 10.2 mg/dL (8.5-10.3); CARBON DIOXIDE - CO2 32 mmol/L (21-32); CHLORIDE 102 mmol/L (101-111); CHOL/HDL RATIO 1.9 (<4.4); CHOLESTEROL 169 mg/dL; CREATININE 1.8 mg/dL (0.6-1.3); GFR - MDRD 27 (>89); GLUCOSE 97 mg/dL (74-104); HDL CHOLESTEROL 89 mg/dL; LDL CHOLESTEROL,CALCULATED 64 mg/dL; LDL/HDL RATIO 0.7 (<4.4); POTASSIUM 4.8 mmol/L (3.5-4.5); SODIUM 139 mmol/L (135-145); TOTAL PROTEIN 7.2 g/dL (6.4-8.9); TRIGLYCERIDES 78 mg/dL; VLDL CHOLESTEROL 16 mg/dL
[2023-12-29 12:39] LABS: THYROID STIMULATING HORMONE 3.59 uIU/mL (0.34-5.60)
== END 2023-12-29 07:16 | disposition home or self-care (01) ==
LOC: LAB.N 07:15
PROVIDERS: ATTEND Internal Medicine
DX: I10 Essential (primary) hypertension (principal); E78.5 Hyperlipidemia, unspecified; R73.03 Prediabetes; E03.9 Hypothyroidism, unspecified
CPT/HCPCS: 36415; 80053; 80061; 83036; 83721; 84443; 85025